=== PATIENT | female | born 1985 | race Caucasian/White ===

== ENCOUNTER 2024-05-07 16:59 | Inpatient (IN) | payer OTHER, SELFPAY ==
[2024-05-07 17:05] VITALS: BP 102/70; PULSE 110; RESP 16; TEMP 36.9; O2SAT 97
[2024-05-07 17:39] VITALS: BMI 27.8
--- OUTSIDE RECORDS SUMMARY | 2024-05-07 18:13 | XMS_ITS | Clinical Summary ---
Author Organization [facility] Address [address] [place] [address] Phone Care Team Providers Care Clinical Pharmacy Technician Name Role Phone Mary Jane Hernandez MD Primary Care Provider Allergies Active Allergy Reactions Criticality Noted Date Comments Azithromycin Anaphylaxis High 02/26/2024 Citalopram Hives 02/26/2024 Codeine Anaphylaxis High 02/26/2024 Divalproex Hives 02/26/2024 Venlafaxine Hives 02/26/2024 Metronidazole Rash 02/26/2024 Ziprasidone Hcl Anaphylaxis High 02/26/2024 Haloperidol Anaphylaxis High 02/26/2024 Latex Hives 02/26/2024 Risperidone Hives 02/26/2024 Sertraline Rash 02/26/2024 Medications docusate sodium (COLACE) 100 mg capsule Take 1 capsule (100 mg total) by mouth every 12 (twelve) hours. 60 capsule 5 05/23/19 25 Active cephalexin (KEFLEX) 500 mg capsule Take 1 capsule (500 mg total) by mouth 4 (four) times a day for 10 days. 40 each 5 05/14/19 25 Active lactulose (CEPHULAC) 20 gram packet Take 1 packet (20 g total) by mouth 2 (two) times a day for 5 days. 10 packet 5 04/23/19 25 Discontinued docusate sodium (COLACE) 100 mg capsule Take 1 capsule (100 mg total) by mouth every 12 (twelve) hours. 60 capsule 5 04/23/19 25 Discontinued lactulose (CEPHULAC) 20 gram packet Take 1 packet (20 g total) by mouth 2 (two) times a day for 5 days. 10 packet 5 04/28/19 25 cephalexin (KEFLEX) 500 mg capsule Take 1 capsule (500 mg total) by mouth 4 (four) times a day for 10 days. 40 each 5 05/04/19 25 Discontinued Active Problems No known active problems Encounters Date Type Department Care Team Description 05/03/2024 6:45 PM EDT - 05/03/2024 11:10 PM EDT [facility] [address] [place] [phone] Héctor Thomas MD Stroke-like symptoms (Primary Dx); Weakness of left side of body Discharge Disposition: Home or Self Care 05/03/2024 12:49 AM EDT - 05/03/2024 6:27 AM EDT [facility] [address] [place] [phone] Cellulitis of buttock (Primary Dx) Discharge Disposition: Home or Self Care 04/30/2024 10:04 PM EDT - 05/01/2024 12:14 AM EDT [facility] [address] [place] [phone] Acute pain of left knee (Primary Dx) Discharge Disposition: Home or Self Care 04/22/2024 6:37 PM EDT - 04/22/2024 11:53 PM EDT [facility] [address] [place] [phone] Constipation, unspecified constipation type (Primary Dx) Discharge Disposition: Home or Self Care 04/20/2024 10:33 PM EDT - 04/21/2024 12:11 AM EDT [facility] [address] [place] [phone] Nonintractable headache, unspecified chronicity pattern, unspecified headache type (Primary Dx) Discharge Disposition: Home or Self Care 02/26/2024 10:31 AM EST - 02/26/2024 2:27 PM EST [facility] [address] [place] [address] Pilonidal abscess (Primary Dx) Discharge Disposition: Home or Self Care from Last 3 Months Surgical History Surgery Date Site/Laterality Comments SECTION Medical History Medical History Date Comments Asthma Sleep apnea Seizures (CMS/HCC) IBS (irritable bowel syndrome) GERD (gastroesophageal reflux disease) Anxiety Depression Bipolar 1 disorder (CMS/HCC) Insomnia Autism Acute migraine Hyperlipidemia Hypotension Social History Tobacco Use Types Packs/Day Years Used Date Smoking Tobacco: Every Day Cigarettes Smokeless Tobacco: Current Tobacco Cessation:Ready to Q uit: No; Counseling Given: Not Answered Alcohol Use Standard Drinks/Week Comments Never 0 (1 standard drink = 0.6 oz pur e alcohol) Comments Unknown Sex and Gender Information Value Date Recorded Sex Assigned at Female 02/26/2024 10:48 AM EST Legal Sex Female 6:51 PM EST Gender Identity Female 02/26/2024 10:48 AM EST Sexual Orientation Straight 02/26/2024 10 :48 AM EST Obstetrics History Last Filed Vital Signs Vital Sign Reading Time Taken Comments Blood Pressure 92/63 05/03/2024 10:56 PM EDT Pulse 74 05/03/2024 10:56 PM EDT Temperature 36.6 ??C (97.8 ??F) 05/03/2024 9:35 PM ED T Respiratory Rate 17 05/03/2024 10:56 PM EDT Oxygen Saturation 98% 05/03/2024 10:56 PM EDT Inhaled Oxygen Concentration - - Weight 67.1 kg (148 lb) 05/03/2024 7:49 PM EDT Height 154.9 cm (5' 0.98 ) 05/03/2024 7:49 PM ED T Body Mass Index 27.98 05/03/2024 7:49 PM EDT Plan of Treatment Health Maintenance Due Date Last Done Comments Breast Cancer Screening 1984 Cervical Cancer Screening: Pap Smear 2005 Hepatitis B Vaccines (2 of 3 - 19+ 3-dose series) 12/22/2009 11/24/2009 Pneumococcal Vaccine: Pediatrics (0 to 5 Years) and At-Risk Patients (6 to 64 Years) (2 of 2 - PCV) 07/02/2011 07/01/2010 Cholesterol Screening (Lipid Panel) 01/09/2022 Depression Screening 01/09/2022 HIV Screening 01/09/2022 Hepatitis C Screening 01/09/2022 Medicare Annual Wellness Visit 01/09/2022 Social Influencers of Health Screening 01/09/2022 COVID-19 Vaccine (3 - season) 2023 07/08/2020, 06/06/2020 Influenza Vaccine (#1) 2023 , 11/08/2013, 11/01/2012, Additional history exists DTaP,Tdap,and Td Vaccines (5 - Td or Tdap) 07/23/2030 07/23/2020, 11/20/2012, 06/14/2008, Additional history exists Hepatitis A Vaccines Aged Out 11/24/2009 No long er eligible based on patient's age to complete this topic MMR Vaccines Aged Out 07/24/2020 No longer eligi ble based on patient's age to complete this topic HIB Vaccines Aged Out No longer eligi ble based on patient's age to complete this topic HPV Vaccines Aged Out No longer eligi ble based on patient's age to complete this topic IPV Vaccines Aged Out No longer eligi ble based on patient's age to complete this topic Meningococcal ACWY Vaccine Aged Out N o longer eligible based on patient's age to complete this topic Meningococcal B Vacine Aged Out No lo nger eligible based on patient's age to complete this topic RSV Immunization Patients Under 20 months Aged Out No longer eligible based on patient's age to complete this topic Varicella Vaccines Aged Out No longer eligible based on patient's age to complete this topic Procedures Procedure Name Priority Date/Time Associated Diagnosis Comments ECG ANNOTATED 05/06/2024 XR CHEST 1 VIEW STAT 05/03/2024 10:32 PM EDT BASIC METABOLIC PANEL STAT 05/03/2024 9:37 PM EDT MR BRAIN WO CONTRAST STAT 05/03/2024 8:40 PM EDT POCT GLUCOSE BLOOD Routine 05/03/2024 7: 50 PM EDT HCG, SERUM, QUALITATIVE STAT 05/04/19 7:42 PM EDT CBC WITH AUTO DIFFERENTIAL STAT 05/03/2024 7:42 PM EDT ACTIVATED PARTIAL THROMBOPLASTIN TIME STAT 05/03/2024 7:42 PM EDT PROTHROMBIN TIME WITH INR STAT 05/03/2024 7:42 PM EDT CBC AND DIFFERENTIAL STAT 05/03/2024 7:[address] ANGIO HEAD/NECK STROKE WO AND/OR W CONTRAST STAT 05/03/2024 7:[address] HEAD STROKE WO CONTRAST STAT 05/03/2024 6:57 PM EDT [place] CRITICAL CARE 30-74 MINUTES Routine 05/03/2024 6:[address] PELVIS W CONTRAST STAT 05/03/2024 4:07 AM EDT CBC WITH AUTO DIFFERENTIAL STAT 05/03/2024 2:30 AM EDT BASIC METABOLIC PANEL STAT 05/03/2024 2:30 AM EDT CBC AND DIFFERENTIAL STAT 05/03/2024 2:30 AM EDT POC , URINE DIAGNOSTIC STAT 05/03/2024 2:[address] ABDOMEN PELVIS WO CONTRAST STAT 04/22/2024 7:59 PM EDT CBC WITH AUTO DIFFERENTIAL STAT 04/22/2024 7:39 PM EDT LIPASE STAT 04/22/2024 7:39 PM EDT COMPREHENSIVE METABOLIC PANEL STAT 04/22/2024 7:39 PM EDT CBC AND DIFFERENTIAL STAT 04/22/2024 7:39 PM EDT POC , URINE DIAGNOSTIC STAT 04/22/2024 6:44 PM EDT HC I&D/DRAIN HEMATOMA/ABSCESS/CYST LEVEL1 Routine 02/26/2024 2:13 PM EST AK INCISION & DRAINAGE CYST PILONIDAL SIMPLE Routine 02/26/2024 2:13 PM EST from Last 3 Months Results * ECG-Annotated (05/06/2024) us Provider Onbase MD ECG ORDERABLES Final Result * XR Chest 1 View (05/03/2024 10:32 PM EDT) Anatomical Region Laterality Modality Body Radiographic Whit ging 05/04/2024 8:25 AM EDT Impressions 05/04/2024 8:26 AM EDT Impression: Discoid atelectasis in the left lower lung. Telerad MICHAEL ([id number]) -------- FINAL REPORT -------- Dictated By: Dorcas Santiago Dictated Date: 05/04/2024 08:25 ET Assigned Physician: Dorcas Santiago Reviewed and Electronically Signed By: Dorcas Santiago Signed Date: 05/04/2024 08:26 ET Workstation ID: [id number] Transcribed By: Self Edit Transcribed Date: 05/04/2024 08:25 ET Narrative 05/04/2024 8:26 AM EDT History: Stroke. Comparison: 07/20/22 Findings: Portable AP upright chest at 10:25 PM. The cardiac silhouette remains normal in size. Hilar contours and pulmonary vascularity are within normal limits. Discoid atelectasis is seen in the left lower lung. The lungs are otherwise grossly clear. Opaque contrast material is seen within the upper urinary tract, partially imaged, consistent with the earlier CTA. Procedure Note Dorcas Santiago MD - 05/04/2024 History: Stroke. Comparison: 07/20/22 Findings: Portable AP upright chest at 10:25 PM. The cardiac silhouette remainsnormal in size. Hilar contours and pulmonary vascularity are within normallimits. Discoid atelectasis is seen in the left lower lung. The lungs areotherwise grossly clear. Opaque contrast material is seen within the upper urinary tract, partiallyimaged, consistent with the earlier CTA. IMPRESSION: Impression: Discoid atelectasis in the left lower lung. Telerad PA ([id number]) -------- FINAL REPORT -------- Dictated By: Dorcas Santiago Dictated Date: 05/04/2024 08:25 ET Assigned Physician: Dorcas Santiago Reviewed and Electronically Signed By: Dorcas Santiago Signed Date: 05/04/2024 08:26 ET Workstation ID: [id number] Transcribed By: Self Edit Transcribed Date: 05/04/2024 08:25 ET Kirk Jenkins MD IMG XR PROCEDURES Final Result * (ABNORMAL) Basic metabolic panel (05/03/2024 9:37 PM EDT) Only the most recent of2 resultswithin the time period is included. Sodium 142 133 - 145 mmol/L LAB CHEMISTRY METHOD 05/03/2024 10:15 PM [facility] Potassium 4.3 3.5 - 5.5 mmol/L LAB CHEMISTRY METHOD 05/03/2024 10:15 PM [facility] Comment:Hemolysis present Chloride 114(H) 96 - 110 mmol/L LAB CHEMISTRY METHOD 05/03/2024 10:15 PM [facility] CO2 20(L) 21 - 32 mmol/L LAB CHEMISTRY METHOD 05/03/2024 10:15 PM [facility] Anion Gap 8 3 - 11 LAB CHEMISTRY METHOD 05/03/2024 10:15 PM [facility] Glucose 95 70 - 100 mg/dL LAB CHEMISTRY METHOD 05/03/2024 10:15 PM [facility] BUN 9 5 - 25 mg/dL LAB CHEMISTRY METHOD 05/03/2024 10:15 PM EDT [facility] Creatinine 0.63 0.50 - 1.10 mg/dL LAB CHEMISTRY METHOD 05/03/2024 10:15 PM EDT [facility] eGFR 115 >=60 mL/min/1. 73m2 LAB CHEMISTRY METHOD 05/03/2024 10:15 PM EDT [facility] Comment:Calculation based on the??Chronic Kidney Disease Epidemiology Collaboration (CKD-EPI) equation refit??without adjustment for race. BUN/Creatinine Ratio 14.3 LAB CHEMISTRY METHOD 05/03/2024 10:15 PM EDT [facility] Calcium 8.6 8.5 - 10.5 mg/dL LAB CHEMISTRY METHOD 05/03/2024 10:15 PM EDT [facility] Blood Venous blood specimen / Unknown Venipuncture / Unknown 05/03/2024 9:37 PM EDT 05/03/2024 9:49 PM EDT us Kirk Jenkins MD LAB BLOOD ORDERABLES Final Resu lt [facility] [address] [place] [address], * MR Brain wo Contrast (05/03/2024 8:40 PM EDT) Anatomical Region Laterality Modality Head and Neck Magnetic Resonan ce 05/03/2024 9:33 PM EDT Impressions 05/03/2024 9:33 PM EDT Unremarkable brain MRI. This document has been electronically signed by: Stanford Kaufman MD on 05/03/2024 21:33:13 Narrative 05/03/2024 9:33 PM EDT INDICATION: Neuro deficit, acute, stroke suspected MR Brain without gadolinium Comparison: CT - CT ANGIO HEAD NECK STROKE WO AND OR W CONTRAST - 05/03/24 19:00 EDT Findings: No restricted diffusion. No intracranial mass or hemorrhage. No midline shift. No hydrocephalus. Vascular flow voids are intact. Orbital contents are unremarkable. The sinuses and mastoid air cells are clear. No focal bone lesion. Procedure Note Stanford Kaufman MD - 05/03/2024 INDICATION: Neuro deficit, acute, stroke suspected MR Brain without gadolinium Comparison: CT - CT ANGIO HEAD NECK STROKE WO AND OR W CONTRAST -05/03/24 19:00 EDT Findings: No restricted diffusion. No intracranial mass or hemorrhage. No midline shift. No hydrocephalus. Vascular flow voids are intact. Orbital contents are unremarkable. The sinuses and mastoid air cells are clear. No focal bone lesion. IMPRESSION: Unremarkable brain MRI. This document has been electronically signed by: Stanford Kaufman MD on 05/03/2024 21:33:13 Héctor Thomas MD IMG MRI PROCEDURES Final Re sult * POCT Glucose, blood (05/03/2024 7:50 PM EDT) Glucose POCT 99 70 - 100 mg/dL 05/03/2024 7:51 PM EDT [facility] Blood Capillary blood specimen / Unknown 05/03/2024 7:50 PM EDT 05/03/2024 7:52 PM EDT Héctor Thomas MD LAB POINT OF CARE T EST DOCKED DEVICE UNSOLICITED RESULTS Final Result [facility] [address] [place] [address], [place] [phone] * (ABNORMAL) CBC auto differential (05/03/2024 7:42 PM EDT) Only the most recent of3 resultswithin the time period is included. WBC 9.4 4.8 - 10.8 K/[facility] LAB HEMETOLOGY METHOD 05/03/2024 7:56 PM EDT [facility] RBC 3.80 3.80 - 4.80 M/[facility] LAB HEMETOLOGY METHOD 05/03/2024 7:56 PM EDT [facility] Hemoglobin 12.3 11.5 - 16.0 g/dL LAB HEMETOLOGY METHOD 05/03/2024 7:56 PM EDT [facility] Hematocrit 38.0 35.0 - 47.0 % LAB HEMETOLOGY METHOD 05/03/2024 7:56 PM [facility] MCV 100.3(H) 79.0 - 98.0 FL LAB HEMETOLOGY METHOD 05[facility]03[facility]2024 7:[facility] MCH 32.5(H) 27.0 - 32.0 pcg LAB HEMETOLOGY METHOD 05/03/2024 7:56 PM [facility] MCHC 32.4 32.0 - 37.0 g/dL LAB HEMETOLOGY METHOD 05/03/2024 7:56 PM [facility] RDW 13.3 11.0 - 15.0 % LAB HEMETOLOGY METHOD 05/03/2024 7:56 PM [facility] Platelets 210 130 - 400 K/mcL LAB HEMETOLOGY METHOD 05/03/2024 7:56 PM [facility] MPV 11.4(H) 7.0 - 11.0 FL LAB HEMETOLOGY METHOD 05/03/2024 7:56 PM [facility] NRBC 0.0 <1.0 % LAB HEMETOLOGY METHOD 05/03/2024 7:56 PM [facility] NRBC Absolute 0.00 <0.10 K/mcL LAB HEMETOLOGY METHOD 05/03/2024 7:56 PM [facility] Neutrophils Relative 52.1 % LAB HEMETOLOGY METHOD 05/03/2024 7:56 PM [facility] Lymphocytes Relative 34.6 % LAB HEMETOLOGY METHOD 05/03/2024 7:56 PM [facility] Monocytes Relative 11.3 % LAB HEMETOLOGY METHOD 05/03/2024 7:56 PM EDT [facility] Eosinophils Relative 1.5 % LAB HEMETOLOGY METHOD 05/03/2024 7:56 PM EDT [facility] Basophils Relative 0.3 % LAB HEMETOLOGY METHOD 05/03/2024 7:56 PM EDT [facility] Immature Granulocytes Relative 0.2 % LAB HEMETOLOGY METHOD 05/03/2024 7:56 PM EDT [facility] Neutrophils Absolute 4.91 1.50 - 7.00 K/mcL LAB HEMETOLOGY METHOD 05/03/2024 7:56 PM EDT [facility] Lymphocytes Absolute 3.27 1.00 - 5.00 K/mcL LAB HEMETOLOGY METHOD 05/03/2024 7:56 PM EDT [facility] Monocytes Absolute 1.07(H) 0.20 - 1.00 K/mcL LAB HEMETOLOGY METHOD 05/03/2024 7:56 PM EDT [facility] Eosinophils Absolute 0.14 0.00 - 0.50 K/mcL LAB HEMETOLOGY METHOD 05/03/2024 7:56 PM EDT [facility] Basophils Absolute 0.03 0.00 - 0.20 K/mcL LAB HEMETOLOGY METHOD 05/03/2024 7:56 PM EDT [facility] Immature Granulocytes Absolute 0.02 0.00 - 0.03 K/mcL LAB HEMETOLOGY METHOD 05/03/2024 7:56 PM EDT [facility] Blood Venous blood specimen / Unknown Venipuncture / Unknown 05/03/2024 7:42 PM EDT 05/03/2024 7:48 PM EDT us Kirk Jenkins MD LAB BLOOD ORDERABLES Final Resu lt [facility] [address] [place] [address], [place] [phone] * Activated partial thromboplastin time (05/03/2024 7:42 PM EDT) [facility] aPTT 36.3 24.1 - 39.3 sec LAB COAGULATION METHOD 05/03/2024 8:05 PM EDT [facility] Blood Venous blood specimen / Unknown Venipuncture / Unknown 05/03/2024 7:42 PM EDT 05/03/2024 7:48 PM EDT us Kirk Jenkins MD LAB BLOOD ORDERABLES Final Resu lt Performing Organization Address [facility]/State/ZIP Co de Phone Number [facility] [address] [place] [address], [place] [phone] * Prothrombin time with INR (05/03/2024 7:42 PM EDT) [facility] Protime 11.4 10.6 - 13.9 sec LAB COAGULATION METHOD 05/03/2024 8:05 PM EDT [facility] INR 0.9 LAB COAGULATION METHOD 05/03/2024 8:05 PM EDT [facility] Blood Venous blood specimen / Unknown Venipuncture / Unknown 05/03/2024 7:42 PM EDT 05/03/2024 7:48 PM EDT us Kirk Jenkins MD LAB BLOOD ORDERABLES Final Resu lt [facility] [address] [place] [address], [place] [phone] * hCG, serum, qualitative (05/03/2024 7:42 PM EDT) [facility] hCG Qual Negative Negative 05/03/2024 8:21 PM EDT [facility] Blood Venous blood specimen / Unknown Venipuncture / Unknown 05/03/2024 7:42 PM EDT 05/03/2024 7:48 PM EDT us Héctor Thomas MD LAB BLOOD ORDERABLES Final Result [facility] [address] [place] [address], * CT Angio Head/Neck Stroke wo and/or w Contrast (05/03/2024 7:04 PM EDT) Anatomical Region Laterality Modality Head and Neck Computed Tomogra phy 05/03/2024 7:31 PM EDT Impressions 05/03/2024 7:31 PM EDT Impression: 1. Unremarkable CTA of the head and neck. This document has been electronically signed by: Isaías Cuenca MD on 05/03/2024 19:31:08 Narrative 05/03/2024 7:31 PM EDT INDICATION: Neuro deficit, acute, stroke suspected Exam: Contrast-enhanced CTA head and neck with multiplanar reformats. Comparison: Same day unenhanced CT brain. Findings: CTA head: There is good opacification of the bilateral anterior and posterior intracranial arterial circulations. No large vessel occlusion or significant intracranial arterial stenoses. No definable truncation of flow. No evidence of aneurysm or vascular malformation. No venous thrombosis or enhancing parenchymal lesions. CTA neck: Unremarkable aortic arch. Common and internal carotid arteries are patent bilaterally. Vertebral arteries are patent bilaterally. No occlusion, hemodynamically significant stenoses or evidence of dissection. Visualized pulmonary apices are clear. No neck masses or adenopathy Osseous structures reveal no destructive osseous lesions. Procedure Note Isaías Cuenca MD - 05/03/2024 INDICATION: Neuro deficit, acute, stroke suspected Exam: Contrast-enhanced CTA head and neck with multiplanar reformats. Comparison: Same day unenhanced CT brain. Findings: CTA head: There is good opacification of the bilateral anterior and posterior intracranial arterial circulations. No large vessel occlusionor significant intracranial arterial stenoses. No definable truncation of flow. No evidence of aneurysm or vascular malformation. No venous thrombosis or enhancing parenchymal lesions. CTA neck: Unremarkable aortic arch. Common and internal carotid arteries are patent bilaterally. Vertebral arteries are patent bilaterally. No occlusion, hemodynamically significant stenoses or evidence ofdissection. Visualized pulmonary apices are clear. No neck masses or adenopathy Osseous structures reveal no destructive osseous lesions. IMPRESSION: Impression: 1. Unremarkable CTA of the head and neck. This document has been electronically signed by: Isaías Cuenca MD on 05/03/2024 19:31:08 Kirk Jenkins MD IM CT PROCEDURES Final Result * CT Head Stroke wo Contrast (05/03/2024 6:57 PM EDT) Anatomical Region Laterality Modality Head and Neck Computed Tomogra phy 05/03/2024 7:09 PM EDT Addenda Addendum by Isaías Cuenca MD on 05/03/2024 7:13 PM EDT ADDENDUM: This report was discussed with Sergio Hernandez PA on May 03, 2024 19:13:00 EDT. This document has been electronically signed by: Lizet Carcamo on 05/03/2024 19:13:35 Impressions 05/03/2024 7:09 PM EDT Impression: 1. No acute intracranial abnormalities. This document has been electronically signed by: Isaías Cuenca MD on 05/03/2024 19:09:43 Narrative 05/03/2024 7:09 PM EDT INDICATION: Neuro deficit, acute, stroke suspected CT head without contrast Comparison: None Findings: No intracranial mass, midline shift, hydrocephalus, or acute hemorrhage. No CT evidence of acute ischemia. Visualized paranasal sinuses and mastoid air cells normal. Orbits unremarkable. No skull fracture Procedure Note Isaías Cuenca MD - 05/03/2024 INDICATION: Neuro deficit, acute, stroke suspected CT head without contrast Comparison: None Findings: No intracranial mass, midline shift, hydrocephalus, or acute hemorrhage. No CT evidence of acute ischemia. Visualized paranasal sinuses and mastoid air cells normal. Orbits unremarkable. No skull fracture IMPRESSION: Impression: 1. No acute intracranial abnormalities. This document has been electronically signed by: Isaías Cuenca MD on 05/03/2024 19:09:43 us Kirk Jenkins MD IMG CT PROCEDURES Edited Result - Final * [facility] CRITICAL CARE 30-74 MINUTES (05/03/2024 6:44 PM EDT) Narrative Héctor Thomas MD - 05/03/2024 6:44 PM EDT Héctor Thomas MD ? 05/07/2024 ??8:16 AM Critical Care Performed by: Héctor Thomas MD Authorized by: Héctor Thomas MD ?? 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 Comments: ?? Patient required extensive time due to stroke alert patient being in. ?? tPA window a bedside consult was done with teleneurology and using shared decision-making we decided against tPA due to the improving neurologic symptoms and low NIHSS, and likelihood that this may be psychogenic or migranous in nature. us Héctor Thomas MD IN CLINIC/BEDSIDE ORDERABLE S Final Result * CT Pelvis w Contrast (05/03/2024 4:07 AM EDT) Anatomical Region Laterality Modality Body, Pelvis Computed Tomogra phy 05/03/2024 4:38 AM EDT Impressions 05/03/2024 4:38 AM EDT Impression: 1. Increased subcutaneous fat induration at the right gluteal cleft. This is likely cellulitis, however there is no definable abscess. This document has been electronically signed by: Reji Dexter MD on 05/03/2024 04:38:58 Narrative 05/03/2024 4:38 AM EDT INDICATION: R buttock abscess superior R glut cleft, perirectal pain CT pelvis with contrast Comparison: CT - CT ABD PEL WO CONTRAST - 04/22/24 20:00 EDT Findings: At the right gluteal cleft there is increased subcutaneous fat induration compared to the prior exam, however there is no definable fluid collection. Uterus and ovaries unremarkable. Normal appendix. No ascites or hernia. No fracture. Procedure Note Reji Dexter MD - 05/03/2024 INDICATION: R buttock abscess superior R glut cleft, perirectal pain CT pelvis with contrast Comparison: CT - CT ABD PEL WO CONTRAST - 04/22/24 20:00 EDT Findings: At the right gluteal cleft there is increased subcutaneous fatinduration compared to the prior exam, however there is no definable fluid collection. Uterus and ovaries unremarkable. Normal appendix. No ascites or hernia. No fracture. IMPRESSION: Impression: 1. Increased subcutaneous fat induration at the right gluteal cleft.This is likely cellulitis, however there is no definable abscess. This document has been electronically signed by: Reji Wren MD on 05/03/2024 04:38:[address] PROCEDURES Final Result * POC , urine manually resulted (05/03/2024 2:13 AM EDT) Only the most recent of2 resultswithin the time period is included. HCG, Ur POC Negative Negative POC hCG Int QC Pass? Yes Yes Urine Urine specimen obtained by clean catch procedure / Unknown 05/03/2024 2:13 AM EDT [facility] POINT [facility] CARE TEST ENTER/EDIT ORDERABLES Final Result * CT Abdomen Pelvis wo Contrast (04/22/2024 7:59 PM EDT) Anatomical Region Laterality Modality Body Computed Tomogra phy 04/22/2024 9:31 PM EDT Impressions 04/22/2024 9:31 PM EDT Impression: Diffuse fecal retention throughout the colon. No bowel obstruction, free air or definite acute process. This document has been electronically signed by: Alton Guerrero MD on 04/22/2024 21:31:37 Narrative 04/22/2024 9:31 PM EDT INDICATION: Abdominal distension CT abdomen and pelvis without contrast Comparison: None Findings: No consolidation or effusion. The liver, spleen, splenule, adrenal glands, pancreas and gallbladder are unremarkable Kidneys, ureters and bladder demonstrate no calculus or obstructive uropathy. No bowel obstruction, free air, free fluid, abscess or adenopathy. There is diffuse fecal retention throughout the colon. No acute osseous finding. Procedure Note Alton Guerrero MD - 04/22/2024 INDICATION: Abdominal distension CT abdomen and pelvis without contrast Comparison: None Findings: No consolidation or effusion. The liver, spleen, splenule, adrenal glands, pancreas and gallbladderare unremarkable Kidneys, ureters and bladder demonstrate no calculus or obstructive uropathy. No bowel obstruction, free air, free fluid, abscess or adenopathy. There is diffuse fecal retention throughout the colon. No acute osseous finding. IMPRESSION: Impression: Diffuse fecal retention throughout the colon. No bowel obstruction, free air or definite acute process. This document has been electronically signed by: Alton Guerrero MD on 04/22/2024 21:31:37 [address]za [address] IM[address] PROCEDURES Layla l Result * Lipase (04/22/2024 7:39 PM EDT) Lipase 55 13 - 75 unit/L LAB CHEMISTRY METHOD 04/22/2024 9:18 PM EDT [facility] Blood Venous blood specimen / Unknown Venipuncture / Unknown 04/22/2024 7:39 PM EDT 04/22/2024 8:39 PM EDT us Lamonte Martin DO LAB BLOOD ORDERABLES Final Res ult [facility] [address] [place] [address], [place] [phone] * (ABNORMAL) Comprehensive metabolic panel (04/22/2024 7:39 PM EDT) Sodium 142 133 - 145 mmol/L LAB CHEMISTRY METHOD 04/22/2024 9:40 PM [facility] Potassium 3.9 3.5 - 5.5 mmol/L LAB CHEMISTRY METHOD 04/22/2024 9:40 PM [facility] Chloride 115(H) 96 - 110 mmol/L LAB CHEMISTRY METHOD 04/22/2024 9:40 PM [facility] CO2 21 21 - 32 mmol/L LAB CHEMISTRY METHOD 04/22/2024 9:40 PM [facility] Anion Gap 6 3 - 11 LAB CHEMISTRY METHOD 04/22/2024 9:40 PM [facility] Glucose 95 70 - 100 mg/dL LAB CHEMISTRY METHOD 04/22/2024 9:40 PM [facility] BUN 15 5 - 25 mg/dL LAB CHEMISTRY METHOD 04/22/2024 9:40 PM [facility] Creatinine 0.89 0.50 - 1.10 mg/dL LAB CHEMISTRY METHOD 04/22/2024 9:40 PM [facility] eGFR 84 >=60 mL/min/1. 73m2 LAB CHEMISTRY METHOD 04/22/2024 9:40 PM [facility] Comment:Calculation based on the??Chronic Kidney Disease Epidemiology Collaboration (CKD-EPI) equation refit??without adjustment for race. BUN/Creatinine Ratio 16.9 LAB CHEMISTRY METHOD 04/22/2024 9:40 PM [facility] Calcium 8.6 8.5 - 10.5 mg/dL LAB CHEMISTRY METHOD 04/22/2024 9:40 PM [facility] AST (SGOT) 18 10 - 42 unit/L LAB CHEMISTRY METHOD 04/22/2024 9:40 PM [facility] ALT (SGPT) 41 10 - 60 unit/L LAB CHEMISTRY METHOD 04/22/2024 9:40 PM EDT [facility] Alkaline Phosphatase 92 42 - 121 unit/L LAB CHEMISTRY METHOD 04/22/2024 9:40 PM EDT [facility] Total Protein 6.9 6.0 - 8.0 g/dL LAB CHEMISTRY METHOD 04/22/2024 9:40 PM EDT [facility] Albumin 3.7 3.2 - 5.0 g/dL LAB CHEMISTRY METHOD 04/22/2024 9:40 PM EDT [facility] Total Bilirubin 0.2 0.0 - 1.4 mg/dL LAB CHEMISTRY METHOD 04/22/2024 9:40 PM EDT [facility] Blood Venous blood specimen / Unknown Venipuncture / Unknown 04/22/2024 7:39 PM EDT 04/22/2024 8:39 PM EDT us Lamonte Martin DO LAB BLOOD ORDERABLES Final Res ult [facility] [address] [place] [address], * [place] INCISION & DRAINAGE CYST PILONIDAL SIMPLE, HC I&D/DRAIN HEMATOMA/ABSCESS/CYST LEVEL1 (02/26/2024 2:13 PM EST) Narrative Trinidad Celeste DO - 02/26/2024 2:13 PM EST MICHAEL Jones ? 02/26/2024 ??2:18 PM Incision and Drainage Date/Time: 02/26/2024 2:13 PM Performed by: MICHAEL Jones Authorized by: MICHAEL Jones ?? Consent: ??Consent obtained: ??Verbal ??Consent given by: ??Patient ??Risks, benefits, and alternatives were discussed: yes ?Risks discussed: ??Incomplete drainage [place] protocol: ??Procedure explained and questions answered to patient or proxy's satisfaction: yes ?Patient identity confirmed: ??Verbally with patient and hospital-assigned identification number Location: ??Type: ??Abscess ??Location: ??Anogenital ??Anogenital location: ??Pilonidal Pre-procedure details: ??Skin preparation: ??Povidone-iodine Anesthesia: ??Anesthesia method: ??Local infiltration Procedure type: ??Complexity: ??Simple Procedure details: ??Ultrasound guidance: no ?Needle aspiration: no ?Incision types: ??Single straight ??Incision depth: ??Subcutaneous ??Wound management: ??Irrigated with saline ??Drainage: ??Purulent ??Drainage amount: ??Moderate ??Wound treatment: ??Drain placed ??Packing materials: ??02/10 in iodoform gauze Post-procedure details: ??Procedure completion: ??Tolerated us Claritza RODRIGUEZ IN CLINIC/BEDSIDE KEANU HIGGINS Final Result from Last 3 Months Insurance [employer] Member Subscriber Plan / Payer (Ef fective 2022-Present) Name:Mayco Sloan Relation to Subscriber:Self Name:Mayco Sloan Payer ID:[id number] Group ID:[id number] Type:Not on file Address: [place] [address] [place] [phone] Care Teams Clinical Pharmacy Technician Relationship Specialty Start Date End Date Mary Jane Hernandez MD [address] [place] [phone] PCP - General 10/27/21
--- OUTSIDE RECORDS SUMMARY | 2024-05-07 18:13 | XMS_ITS | Encounter Summary ---
Author Organization [facility] Address [address] [facility] [address] [place] [address] Phone Care Team Providers Care Special Officer Name Role Phone Mary Jane Hernandez MD Primary Care Provider [phone] Encounter Details Date Type Department Care Team (Late Contact Info) Description 12/05/2020 Telephone [facility] [address] [facility] [address] [place] [phone] Eleonora Rincon Social History Tobacco Use Types Packs/Day Years Used Date Smoking Tobacco: Every Day Cigarettes Smokeless Tobacco: Current Alcohol Use Standard Drinks/Week Comments No 0 (1 standard drink = 0.6 oz pur e alcohol) Comments Unknown Sex and Gender Information Value Date Recorded Sex Assigned at Not on file Legal Sex Female 4:53 PM EST Gender Identity Not on file Sexual Orientation Not on file documented as of this encounter Plan of Treatment Upcoming Encounters Date Type Department Care Team (Late st Contact Info) Description 01/14/2025 1:00 PM EST Office Visit [facility] [address] [phone] Jose Luis Savage MD [address] [phone] documented as of this encounter Visit Diagnoses Not on filedocumented in this encounter Care Teams Special Officer Relationship Specialty Start Date End Date Mary Jane Hernandez MD [address] [place] [phone] PCP - General Internal Medicine 04/30/21 documented as of this encounter
--- OUTSIDE RECORDS SUMMARY | 2024-05-07 18:14 | XMS_ITS | Encounter Summary ---
Author Organization [facility] [place] [address] Care Team Providers Care Research Engineer Name Role Phone Mary Jane Hernandez MD Primary Care Provider [phone] Reason for Visit * Reason Comments Abscess Abscess on right but tock she noticed just today. Encounter Details Date Type Department Care Team (Late st Contact Info) Description 05/03/2024 12:49 AM EDT - 05/03/2024 6:27 AM EDT Emergency [facility] Emergency [address] [place] [id number] Cellulitis of buttock (Primary Dx) Discharge Disposition: Home or Self Care Social History Tobacco Use Types Packs/Day Years Used Date Smoking Tobacco: Every Day Cigarettes Smokeless Tobacco: Current Alcohol Use Standard Drinks/Week Comments Never 0 (1 standard drink = 0.6 oz pur e alcohol) Comments Unknown Sex and Gender Information Value Date Recorded Sex Assigned at Female 02/26/2024 10:48 AM EST Legal Sex Female 6:51 PM EST Gender Identity Female 02/26/2024 10:48 AM EST Sexual Orientation Straight 02/26/2024 10 :48 AM EST documented as of this encounter Last Filed Vital Signs Vital Sign Reading Time Taken Comments Blood Pressure 91/65 05/03/2024 4:24 AM EDT Pulse 102 05/03/2024 4:24 AM EDT Temperature 36.8 ??C (98.2 ??F) 05/03/2024 4:24 AM ED T Respiratory Rate 16 05/03/2024 4:24 AM EDT Oxygen Saturation 99% 05/03/2024 4:24 AM EDT Inhaled Oxygen Concentration - - Weight 67.1 kg (148 lb) 05/02/2024 9:16 PM EDT Height 154.9 cm (5' 1 ) 05/02/2024 9:16 PM EDT Body Mass Index 27.96 05/02/2024 9:16 PM EDT documented in this encounter Functional Status * Are you deaf or do you have serious difficulty hearing? Answer Date of Assessment Author No 04/20/2024 11:45 PM EDT Aneta Adler RN * Are you blind or do you have serious difficulty seeing, even when wearing glasses? Answer Date of Assessment Author No 04/20/2024 11:45 PM EDT Aneta Adler RN * Do you have serious difficulty walking or climbing stairs? Answer Date of Assessment Author No 04/20/2024 11:45 PM EDT Aneta Adler RN * Do you have serious difficulty dressing or bathing? Answer Date of Assessment Author No 04/20/2024 11:45 PM EDT Aneta Adler RN * Because of a physical, mental, or emotional condition, do you have serious difficulty doing errandsalone such as visiting the doctor? Answer Date of Assessment Author No 04/20/2024 11:45 PM EDT Aneta Adler RN documented as of this encounter Mental Status * Because of a physical, mental, or emotional condition, do you have serious difficulty concentrating, remembering, or making decisions? (5 years old or older) Answer Entry Date Author No 04/20/2024 11:45 PM EDT Aneta Adler RN documented in this encounter Discharge Instructions * Discharge Instructions* MICHAEL Duarte - 05/03/2024 5:33 AM EDT Thank you for choosing [facility]'s Emergency Department for your care today. At this time there is no indication for admission to the hospital or continued ED observation, and it is safe to discharge you home. Thankfully your CT today showed no evidence of a formed abscess, there is evidence of cellulitis inthe skin of your buttock, we are treating this with cephalexin, an antibiotic. Please take cephalexin as it was prescribed until it is finished. You may take alternating (staggered) doses of ibuprofen 600mg and Tylenol 1000mg every 4 hours as needed for any additional pain Please stay well hydrated and get plenty of rest Please follow up with your primary care physician for re-evaluation, additional management of your symptoms, and continued preventative care. If you do not have a primary care physician, please call the [facility] at [phone] toestablish a new primary care physician. Please return to the emergency department if you develop a sudden severe change in your symptoms, afever over 100.4, severe or recurrent vomiting, or a sudden increase in pain or if you experience any other new or worsening symptoms or concerns. * Attachments The following attachments cannot be sent through Care Everywhere. * Cellulitis (Divehi) documented in this encounter Medications at Time of Discharge cephalexin (KEFLEX) 500 mg capsule Take 1 capsule (500 mg total) by mouth 4 (four) times a day for 10 days. 40 each 05/03/2024 05/13/2024 docusate sodium (COLACE) 100 mg capsule Take 1 capsule (100 mg total) by mouth every 12 (twelve) hours. 60 capsule 04/22/2024 05/22/2024 documented as of this encounter Ordered Prescriptions Prescription Sig Dispense Quantity Refills Last Filled Start Date End Date cephalexin (KEFLEX) 500 mg capsule Take 1 capsule (500 mg total) by mouth 4 (four) times a day for 10 days. 40 each 05/03/2024 cephalexin (KEFLEX) 500 mg capsule Take 1 capsule (500 mg total) by mouth 4 (four) times a day for 10 days. 40 each 05/03/2024 documented in this encounter Discharge Disposition Disposition Code Departure Means Destination Comment s Home or Self Care documented in this encounter Progress Notes * Bernie Pereira RN - 05/02/2024 9:11 PM EDT She has an abscess on her right buttock that she noticed today. * MICHAEL Hunt - 05/02/2024 9:06 PM EDT Emergency Medicine Note Patient Name: Mayco Maldonado Initial Evaluation: 05/02/2024 : 1985 Patient's PCP: Mary Jane Hernandez MD Emergency Physician: MICHAEL Hunt History of Present Illness Chief Complaint: Chief Complaint Patient presents with Abscess Abscess on right buttock she noticed just today. HPI: This is a 39-year-old female with a past medical history of asthma, epilepsy, hyperlipidemia, GERD,history of CVA not anticoagulated who is presenting today with complaint of abscess. Patient reports since yesterday she noted an abscess to her right buttock. Reports a history of similar abscesses in the past, for which she had needed incision and drainage. Reports pain in this area, denies knowndischarge. She denies fever nausea vomiting diarrhea. ROS: I have performed a ROS with the pertinent positives and negatives documented in the history ofpresent illness. Previous History Past Medical History: Diagnosis Date Acute migraine Anxiety Asthma Autism Bipolar 1 disorder (CMS/HCC) Depression GERD (gastroesophageal reflux disease) Hyperlipidemia Hypotension IBS (irritable bowel syndrome) Insomnia Seizures (CMS/HCC) Sleep apnea Past Surgical History: Procedure Laterality Date SECTION Social History Tobacco Use Smoking status: Every Day Types: Cigarettes Smokeless tobacco: Current Substance Use Topics Alcohol use: Never Drug use: Never No family history on file. is allergic to azithromycin, codeine, geodon [ziprasidone hcl], haloperidol, celexa [citalopram], depakote [divalproex], effexor [venlafaxine], flagyl [metronidazole], latex, risperidone, and zoloft [sertraline]. No current facility-administered medications on file prior to encounter. Current Outpatient Medications on File Prior to Encounter Medication Sig Dispense Refill docusate sodium (COLACE) 100 mg capsule Take 1 capsule (100 mg total) by mouth every 12 (twelve) hours. 60 capsule 0 [] lactulose (CEPHULAC) 20 gram packet Take 1 packet (20 g total) by mouth 2 (two) times a day for 5 days. 10 packet 0 Physical Exam ED Triage Vitals [05/02/24 2116] Temp Heart Rate Resp BP 36.3 ??C (97.3 ??F) 94 18 105/78 SpO2 Temp Source Heart Rate Source Patient Position 99 % Oral Radial Sitting BP Location FiO2 (%) Right arm -- General: awake, calm, cooperative, in no acute distress. Skin: Right gluteal cleft with erythema, edema superior to rectum. Area is open, no active drainage. Pain to palpation of perirectal region. Eyes: PERRLA, EOMI. ENMT: Oral mucosa is moist, normal phonation, managing secretions. Respiratory: No increased work of breathing. Cardiovascular: Warm and well perfused MSK: Moving all extremities spontaneously with full ROM, no edema or deformity noted. Ambulatory Neurologic: Awake, alert, and oriented x3. No focal deficits. Psychiatric: Appropriate mood and affect Results Vitals: 05/02/24 2116 BP: 105/78 BP Location: Right arm Patient Position: Sitting Pulse: 94 Resp: 18 Temp: 36.3 ??C (97.3 ??F) TempSrc: Oral SpO2: 99% Weight: 67.1 kg (148 lb) Height: 1.549 m (61 ) Labs Reviewed CBC WITH AUTO DIFFERENTIAL - Abnormal Result Value WBC 10.8 RBC 3.70 (*) Hemoglobin 11.8 Hematocrit 36.2 MCV 98.4 (*) MCH 32.1 (*) MCHC 32.6 RDW 13.3 Platelets 206 MPV 10.9 NRBC 0.0 NRBC Absolute 0.00 Neutrophils Relative 54.5 Lymphocytes Relative 32.9 Monocytes Relative 10.1 Eosinophils Relative 1.8 Basophils Relative 0.3 Immature Granulocytes Relative 0.4 Neutrophils Absolute 5.90 Lymphocytes Absolute 3.56 Monocytes Absolute 1.09 (*) Eosinophils Absolute 0.19 Basophils Absolute 0.03 Immature Granulocytes Absolute 0.04 (*) POC , URINE DIAGNOSTIC - Normal HCG, Ur POC Negative POC hCG Int QC Pass? Yes CBC AND DIFFERENTIAL Narrative: The following orders were created for panel order CBC and differential. Procedure Abnormality Status --------- ------ CBC auto differential[[id number]] Abnormal Final result Please view results for these tests on the individual orders. BASIC METABOLIC PANEL Abnormal Labs Reviewed CBC WITH AUTO DIFFERENTIAL - Abnormal; Notable for the following components: Result Value RBC 3.70 (*) MCV 98.4 (*) MCH 32.1 (*) Monocytes Absolute 1.09 (*) Immature Granulocytes Absolute 0.04 (*) All other components within normal limits CT Pelvis w Contrast (Results Pending) Differential Diagnosis Perianal abscess, pilonidal cyst, pilonidal abscess, cellulitis, fistula Medical Decision Making -year-old female presenting with 2 days of concern of right buttock abscess. On exam patient alert and oriented no acute distress she is hemodynamically stable and afebrile. The right gluteal cleft with erythema, edema superior to rectum. Area is open, no active drainage. Pain to palpation of perirectal region. Given family to the rectum with pain to the perirectal region will obtain CT pelvis. Medications - No data to display ED Course as of 05/03/24310 Roxie May 03, [id number] Patient care signed out to Stalin Youssef PA-C at [address] [BT] ED Course User Index [BT] MICHAEL Hunt Procedures Procedures Diagnosis No diagnosis found. Disposition Data Unavailable ED Prescriptions None Physician Attestation MICHAEL Hunt 05/03/24 0206 MICHAEL Hunt 05/03/24310 Cosigned by Zara Sotelo MD at 05/03/2024 7:33 AM EDT documented in this encounter Miscellaneous Notes * ED Bed Hold Note - Tiara Rockwell RN - 05/03/2024 3:17 AM EDT Bed: [facility] Expected date: Expected time: Means of arrival: Comments: RME RM38 documented in this encounter Plan of Treatment Not on file documented as of this encounter Procedures Procedure Name Priority Date/Time Associated Diagnosis Comments CT PELVIS W CONTRAST STAT 05/03/2024 4:07 AM EDT CBC WITH AUTO DIFFERENTIAL STAT 05/03/2024 2:30 AM EDT CBC AND DIFFERENTIAL STAT 05/03/2024 2:30 AM EDT BASIC METABOLIC PANEL STAT 05/03/2024 2:30 AM EDT POC , URINE DIAGNOSTIC STAT 05/03/2024 2:13 AM EDT documented in this encounter Results * CT Pelvis w Contrast (05/03/2024 4:07 [...] RODRIGUEZ IMG CT PROCEDURES Final Result * (ABNORMAL) CBC auto differential (05/03/2024 2:30 AM EDT) [facility] WBC 10.8 4.8 - 10.8 K/mcL LAB HEMETOLOGY METHOD 05/03/2024 2:58 AM EDT [facility] RBC 3.70(L) 3.80 - 4.80 M/mcL LAB HEMETOLOGY METHOD 05/03/2024 2:58 AM EDT [facility] Hemoglobin 11.8 11.5 - 16.0 g/dL LAB [facility] Hematocrit 36.2 35.0 - 47.0 % LAB HEMETOLOGY METHOD [facility]03[facility]2024 [facility] MCV 98.4(H) 79.0 - 98.0 FL LAB HEMETOLOGY METHOD 05/03/2024 [facility] MCH 32.1(H) 27.0 - 32.0 pcg LAB HEMETOLOGY METHOD 05/03/2024 [facility] MCHC 32.6 32.0 - 37.0 g/dL LAB HEMETOLOGY METHOD 05/03/2024 2:58 AM EDT [facility] RDW 13.3 11.0 - 15.0 % LAB HEMETOLOGY METHOD 05/03/2024 2:58 AM EDT [facility] Platelets 206 130 - 400 K/mcL LAB HEMETOLOGY METHOD 05/03[facility]2024 [facility] MPV 10.9 7.0 - 11.0 FL LAB HEMETOLOGY METHOD 05/03/2024 2:58 AM EDT [facility] NRBC 0.0 <1.0 % LAB HEMETOLOGY METHOD 05/03/2024 2:58 AM [facility] NRBC Absolute 0.00 <0.10 K/mcL LAB HEMETOLOGY METHOD 05/03/2024 2:58 AM [facility] Neutrophils Relative 54.5 % LAB HEMETOLOGY METHOD 05/03/2024 2:58 AM [facility] Lymphocytes Relative 32.9 % LAB HEMETOLOGY METHOD 05/03/2024 2:58 AM [facility] Monocytes Relative 10.1 % LAB HEMETOLOGY METHOD 05/03/2024 2:58 AM [facility] Eosinophils Relative 1.8 % LAB HEMETOLOGY METHOD 05/03/2024 2:58 AM [facility] Basophils Relative 0.3 % LAB HEMETOLOGY METHOD 05/03/2024 2:58 AM [facility] Immature Granulocytes Relative 0.4 % LAB HEMETOLOGY METHOD 05/03/2024 2:58 AM [facility] Neutrophils Absolute 5.90 1.50 - 7.00 K/mcL LAB HEMETOLOGY METHOD 05/03/2024 2:58 AM [facility] Lymphocytes Absolute 3.56 1.00 - 5.00 K/mcL LAB HEMETOLOGY METHOD 05/03/2024 2:58 AM [facility] Monocytes Absolute 1.09(H) 0.20 - 1.00 K/mcL LAB HEMETOLOGY METHOD 05/03/2024 2:58 AM [facility] Eosinophils Absolute 0.19 0.00 - 0.50 K/mcL LAB HEMETOLOGY METHOD 05/03/2024 2:58 AM [facility] Basophils Absolute 0.03 0.00 - 0.20 K/mcL LAB HEMETOLOGY METHOD 05/03/2024 2:58 AM [facility] Immature Granulocytes Absolute 0.04(H) 0.00 - 0.03 K/mcL LAB HEMETOLOGY METHOD 05/03/2024 2:58 AM EDT [facility] Blood Venous blood specimen / Unknown Venipuncture / Unknown 05/03/2024 2:30 AM EDT 05/03/2024 2:54 AM EDT us Isabelle RODRIGUEZ LAB BLOOD ORDERABLES Final Res ult [facility] [address] [place] [address], [place] [phone] * (ABNORMAL) Basic metabolic panel (05/03/2024 2:30 AM EDT) Sodium 144 133 - 145 mmol/L LAB CHEMISTRY METHOD 05/03/2024 3:15 AM [facility] Potassium 3.5 3.5 - 5.5 mmol/L LAB CHEMISTRY METHOD 05/03/2024 3:15 AM [facility] Chloride 115(H) 96 - 110 mmol/L LAB CHEMISTRY METHOD 05/03/2024 3:15 AM [facility] CO2 21 21 - 32 mmol/L LAB CHEMISTRY METHOD 05/03/2024 3:15 AM [facility] Anion Gap 8 3 - 11 LAB CHEMISTRY METHOD 05/03/2024 3:15 AM [facility] Glucose 98 70 - 100 mg/dL LAB CHEMISTRY METHOD 05/03/2024 3:15 AM [facility] BUN 12 5 - 25 mg/dL LAB CHEMISTRY METHOD 05/03/2024 3:15 AM [facility] Creatinine 0.70 0.50 - 1.10 mg/dL LAB CHEMISTRY METHOD 05/03/2024 3:15 AM [facility] eGFR 112 >=60 mL/min/1. 73m2 LAB CHEMISTRY METHOD 05/03/2024 3:15 AM EDT [facility] Comment:Calculation based on the??Chronic Kidney Disease Epidemiology Collaboration (CKD-EPI) equation refit??without adjustment for race. BUN/Creatinine Ratio 17.1 LAB CHEMISTRY METHOD 05/03/2024 3:15 AM EDT [facility] Calcium 9.1 8.5 - 10.5 mg/dL LAB CHEMISTRY METHOD 05/03/2024 3:15 AM EDT [facility] Blood Venous blood specimen / Unknown Venipuncture / Unknown 05/03/2024 2:30 AM EDT 05/03/2024 2:54 AM EDT us Isabelle RODRIGUEZ LAB BLOOD ORDERABLES Final Res ult [facility] [address] [place] [address], * POC , urine manually resulted (05/03/2024 2:13 AM EDT) HCG, Ur POC Negative Negative POC hCG Int QC Pass? Yes Yes Urine Urine specimen obtained by clean catch procedure / Unknown 05/03/2024 2:13 AM EDT us Isabelle RODRIGUEZ POINT OF CARE TEST ENTER/EDIT ORDERABLES Final Result documented in this encounter Visit Diagnoses Diagnosis Cellulitis of buttock- Primary Cellulitis and abscess of buttock documented in this encounter Administered Medications Inactive Administered Medications - up to 3 most recent administrations Medication Order MAR Action Action Date Dose Rate Site cephalexin (KEFLEX) capsule 500 mg 500 mg, oral, Once, On Roxie 05/03/24 at 0545, For 1 dose, Indication: Skin/Soft Tissue Given 05/03/2024 5:52 AM EDT 500 mg iopamidoL (ISOVUE-370) 370 mg iodine /mL (76 %) injection 90 mL 90 mL, intravenous, Once in imaging, Starting on Roxie 05/03/24 at 0401, For 1 dose Given 05/03/2024 4:02 AM EDT 90 mL sodium chloride 0.9 % flush 10 mL 10 mL, intravenous, Once, On Roxie 05/03/24 at 0402, For 1 dose Given 05/03/2024 4:02 AM EDT 10 mL documented in this encounter Discontinued Medications Medication Sig Discontinue Reason Start Date End Da te cephalexin (KEFLEX) 500 mg capsule Take 1 capsule (500 mg total) by mouth 4 (four) times a day for 10 days. 05/03/2024 05/03/2024 documented as of this encounter Active and Recently Administered Medications Times are shown in EDT. Scheduled Medication Order 05/01/2024 05/02/2024 05/03/2024 cephalexin (KEFLEX) capsule 500 mg (COMPLETED) 500 mg, oral, Once, On Roxie 05/03/24 at 0545, For 1 dose, Indication: Skin/Soft Tissue 0552 (Given - Provid er: Latisha Gagnon RN) iopamidoL (ISOVUE-370) 370 mg iodine /mL (76 %) injection 90 mL (COMPLETED) 90 mL, intravenous, Once in imaging, Starting on Roxie 05/03/24 at 0401, For 1 dose 0402 (Given - Provid er: Tru Camp) sodium chloride 0.9 % flush 10 mL (COMPLETED) 10 mL, intravenous, Once, On Roxie 05/03/24 at 0402, For 1 dose 0402 (Given - Provid er: Tru Camp) documented in this encounter Care Teams Research Engineer Relationship Specialty Start Date End Date Mary Jane Hernandez MD [address] [place] [phone] PCP - General 10/27/21 documented as of this encounter
--- OUTSIDE RECORDS SUMMARY | 2024-05-07 18:14 | XMS_ITS | Clinical Summary ---
Author Organization [facility] Address [address] [place] [phone] Phone Care Team Providers Care Staff Psychologist Name Role Phone Mary Jane Hernandez MD Primary Care Provider [phone] Allergies Active Allergy Reactions Criticality Noted Date Comments Azithromycin Other (see comments) 09/16/2020 Brassica Oleracea 04/30/2021 Cabbage Other (see comments) 10/13/2020 Citalopram Other (see comments) 09/16/2020 Coconut Fatty Acid Other (see comments) Codeine Other (see comments) 09/16/2020 Fish-Derived Products Anaphylaxis High 10/13/2020 Fluoxetine Other (see comments) 09/16/2020 Garlic Other (see comments) 10/13/2020 Gluten Meal 06/03/2022 Haloperidol Other (see comments) 09/16/2020 Latex Other (see comments) 09/16/2020 Metronidazole Other (see comments) 09/16/2020 Nicotine Itching,Other (see comments) Onion Other (see comments) 10/13/2020 Oxycodone Other (see comments) 09/16/2020 Oxycodone-Acetaminophen Other (see comments) Procaine Other (see comments) 09/16/2020 Prunus Persica Other (see comments) 04/30/2021 Risperidone Other (see comments) 09/16/2020 Sertraline Anaphylaxis High 09/16/2020 Spinach Other (see comments) 10/13/2020 [employer] Extract Other (see comments) 021 Wound Dressings Other (see comments) 09/16/2020 Tomato Other (see comments) 10/13/2020 Valproic Acid Other (see comments) 09/16/2020 Venlafaxine Other (see comments) 09/16/2020 Wound Dressing Adhesive Rash Low 10/13/2020 Ziprasidone Other (see comments) 09/16/2020 Medications aclidinium (Tudorza Pressair) 400 MCG/ACT inhaler Inhale 2 (two) times a day Active fluticasone (FLONASE) 50 MCG/ACT nasal spray Administer 1 spray into each nostril if needed Active levalbuterol (XOPENEX HFA) 45 MCG/ACT inhaler Active sucralfate (CARAFATE) 1 g tablet Take 1 tablet by mouth 4 (four) times a day Active levETIRAcetam (KEPPRA) 500 MG tablet Take 500 mg by mouth 2 (two) times a day Active nicotine polacrilex (NICORETTE) 2 MG gum Chew 2 mg if needed for smoking cessation Active docusate sodium (COLACE) 100 MG capsule Take 100 mg by mouth 3 (three) times a day if needed for constipation Active cyclobenzaprine (FLEXERIL) 5 MG tablet Take 5 mg by mouth 3 (three) times a day if needed for muscle spasms Active lurasidone (LATUDA) 20 MG tablet Take 40 mg by mouth 1 (one) time each day with breakfast Active atorvastatin (LIPITOR) 40 MG tablet Take 40 mg by mouth 1 (one) time each day Active lidocaine (LIDODERM) 5 % patch Apply 1 patch topically if needed for mild pain Remove & discard patch within 12 hours or as directed by MD. Active clotrimazole (LOTRIMIN) 1 % cream Apply topically 2 (two) times a day Active aluminum-magnes ium hydroxide-simet hicone (MAALOX MAX) 400-400-40 MG/5ML suspension Take by mouth if needed for indigestion or heartburn Active chlorhexidine (PERIDEX) 0.12 % solution Use 15 mL in the mouth or throat in the morning and 15 mL in the evening. Active EPINEPHrine (EPIPEN) 0.3 MG/0.3ML injection syringe 2 Active Melatonin 5 MG tablet Take 5 mg by mouth 2 Active amitriptyline (ELAVIL) 10 MG tablet Take 1 tablet by mouth 1 (one) time each day 3 Active topiramate (TOPAMAX) 100 MG tablet Take 1 tablet by mouth in the morning and 1 tablet in the evening and 1 tablet before bedtime. 3 Active pantoprazole (PROTONIX) 20 MG EC tablet Take 1 tablet by mouth 1 (one) time each day 3 Active zolpidem (AMBIEN) 5 MG tablet 3 Active Riboflavin (Vitamin B-2) 100 MG tablet 3 Active Enulose 10 GM/15ML solution oral solution 3 Active Aspirin Low Dose 81 MG chewable tablet 3 Active OLANZapine (ZyPREXA) 2.5 MG tablet 3 Active OLANZapine (ZyPREXA) 10 MG tablet 3 Active midodrine (PROAMATINE) 10 MG tablet Take 1 tablet (10 mg total) by mouth in the morning and 1 tablet (10 mg total) in the evening and 1 tablet (10 mg total) before bedtime. 270 tablet 3 4 Active Active Problems Problem Noted Date Diagnosed Date Gastroesophageal reflux disease 01/06/2023 01/06/2023 Left flank pain 06/03/2022 Recurrent and persistent hem aturia with minimal change lesion 06/03/2022 COVID-19 03/07/2022 01/06/2023 Overview (01/06/2023): Problem added by Discern Expert Alcohol abuse 04/30/2021 Overview (04/30/2021): Patient reports she has been sober x 5 years and goes to AA meeting. 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 Uses CPAP every night to sleep 5.0-8.0 Agitation 10/14/2020 Low blood pressure 09/16/2020 Bipolar disorder 06/15/2011 Overview (04/30/2021): Michael [facility] Not currently on medications. States feels stable. Immunizations Name Administration Dates Next Due Hep B, Unspecified 11/24/2009 Hepatitis A 11/24/2009 Influenza Whole 10/26/2010 Influenza, Unspecified 12/03/2021 MMR 07/24/2020 Moderna SARS-COV-2 07/08/2020,06/06/2020 Pneumococcal Polysaccharide 07/01/2010 Tdap 07/23/2020,11/20/2012,06/14/2008 ,11/04/2007 Social History Tobacco Use Types Packs/Day Years Used Date Smoking Tobacco: Every Day Cigarettes Smokeless Tobacco: Current Tobacco Cessation:Ready to Q uit: No; Counseling Given: No Alcohol Use Standard Drinks/Week Comments No 0 (1 standard drink = 0.6 oz pur e alcohol) Comments Unknown Sex and Gender Information Value Date Recorded Sex Assigned at Not on file Legal Sex Female 4:53 PM EST Gender Identity Not on file Sexual Orientation Not on file Last Filed Vital Signs Vital Sign Reading Time Taken Comments Blood Pressure 120/58 01/09/2024 1:02 PM EST Pulse 93 01/09/2024 1:02 PM EST Temperature - - Respiratory Rate - - Oxygen Saturation 98% 01/07/2023 10:32 AM EST Inhaled Oxygen Concentration - - Weight 65.8 kg (145 lb) 01/09/2024 1:02 PM EST Height 154.9 cm (5' 1 ) 07/12/2019 12:00 PM EDT Body Mass Index 27.4 07/12/2019 12:00 PM EDT Plan of Treatment Upcoming Encounters Date Type Department Care Team (Late st Contact Info) Description 01/14/2025 1:00 PM EST Office Visit [facility] [place] [facility]. [address] [phone] Jose Luis Savage MD [address] [phone] Health Maintenance Due Date Last Done Comments Hepatitis B Vaccine (1 of 3 - 19+ 3-dose series) 2003 11/24/2009 Pneumococcal Vaccine: Pediat rics (0 to 5 Years) and At-Risk Patients (6 to 64 Years) (2 of 2 - PCV) 07/02/2011 07/01/2010 Influenza Vaccine (#1) 2023 12/03/2021, 2010 Insurance ([id number]) MICHAEL LUDWIG [id number] [facility] ([id number]) MICHAEL LUDWIG [phone] Care Teams Staff Psychologist Relationship Specialty Start Date End Date Mary Jane Hernandez MD [address] [place] [phone] PCP - General Internal Medicine 04/30/21
--- OUTSIDE RECORDS SUMMARY | 2024-05-07 18:14 | XMS_ITS | Encounter Summary ---
Author Organization [facility] Address [address] [place] [address] Care Team Providers Care University Administrator Name Role Phone Mary Jane Hernandez MD Primary Care Provider [phone] Reason for Visit * Reason Comments Stroke Encounter Details Date Type Department Care Team ([facility] st Contact Info) Description 05/03/2024 6:45 PM EDT - 05/03/2024 11:10 PM EDT Emergency [facility] Emergency [address] [place] [address] Héctor Thomas MD [address] [address] Stroke-like symptoms (Primary Dx); Weakness of left side of body Discharge Disposition: Home or Self Care Social [...] Mass Index 27.98 05/03/2024 7:49 PM EDT documented in this encounter Functional [...] * Discharge Instructions* MICHAEL Duarte - 05/03/2024 10:59 PM EDT Thank you for choosing [facility]'s Emergency Department for your care today. Thankfully your laboratory evaluation, exam, CT head, CTA neck, and MRI of your brain today showed no evidence of any acute stroke causing your initial presenting symptoms. Seeing as this workup has been nondiagnostic and your symptoms have resolved, at this time there is no indication for admission to the hospital or continued ED observation and it is safe to discharge you home. Please be sure to follow-up with your primary care provider for reevaluation of your symptoms and any repeat imagingas deemed appropriate. Please stay well hydrated and get plenty of rest Please follow up with your primary care physician for re-evaluation, additional management of your symptoms, and continued preventative care. If you do not have a primary care physician, please call the [facility] at [phone] toestablish a new primary care physician. Please return to the emergency department if you develop a sudden severe change in your symptoms orif you experience any other new or worsening symptoms or concerns. * Attachments The following attachments cannot be sent through Care Everywhere. * Stroke: Symptoms: General Info (Kazakh) documented in this encounter Medications at Time of Discharge cephalexin (KEFLEX) 500 mg capsule Take 1 capsule (500 mg total) by mouth 4 (four) times a day for 10 days. 40 each 05/03/2024 05/13/2024 docusate sodium (COLACE) 100 mg capsule Take 1 capsule (100 mg total) by mouth every 12 (twelve) hours. 60 capsule 04/22/2024 05/22/2024 documented as of this encounter Discharge Disposition Disposition Code Departure Means Destination Comment s Home or Self Care documented in this encounter Progress Notes * June Conrad RN - 05/03/2024 6:56 PM EDT PT arrives to ED by ambulance from community with complaints of right sided facial droop and left sided weakness with poor visual tracking. PT stated sudden onset at 1730. Pts noted symptoms first. PT has 8/10 chest pain. Received 324mg aspirin in route. PT not on thinners. PT has had 3 previous strokes. * Héctor Thomas MD - 05/03/2024 6:44 PM EDTAssociated Order(s): Critical Care Emergency Medicine Note Patient Name: Mayco Maldonado Initial Evaluation: 05/03/2024 : 1985 Patient's PCP: Mary Jane Hernandez MD Emergency Physician: Héctor Thomas MD History of Present Illness Chief Complaint: Chief Complaint Patient presents with Stroke HPI: 39-year-old female with a past medical history of bipolar disorder migraines seizures asthma, epilepsy, hyperlipidemia, GERD, history of CVA allegedly 6 months ago. She is presenting for acute change left-sided weakness and numbness starting around 5:30 PM history of smoking. No diabetes no high hypotension. Does have history of migraines and seizures she takes Keppra for this but she is a presents with ROS: I have performed a ROS with [...] flagyl [metronidazole], latex, risperidone, and zoloft [sertraline]. Current Facility-Administered Medications on File Prior to Encounter Medication Dose Route Frequency Provider Last Rate Last Admin [COMPLETED] cephalexin (KEFLEX) capsule 500 mg 500 mg oral Once MICHAEL Duarte 500 mg at 05/03/24 0566 [COMPLETED] iopamidoL (ISOVUE-370) 370 mg iodine /mL (76 %) injection 90 mL 90 mL intravenous Once in imaging MICHAEL Hunt 90 mL at 05/03/24 0402 [COMPLETED] sodium chloride 0.9 % flush 10 mL 10 mL intravenous Once MICHAEL Hunt 10 mL at 05/03/24 0402 Current Outpatient Medications on File Prior to Encounter Medication Sig Dispense Refill cephalexin (KEFLEX) 500 mg capsule Take 1 capsule (500 mg total) by mouth 4 (four) times a day for 10 days. 40 each 0 docusate sodium (COLACE) 100 mg capsule Take 1 capsule (100 mg total) by mouth every 12 (twelve) hours. 60 capsule 0 [] lactulose (CEPHULAC) 20 gram packet Take 1 packet (20 g total) by mouth 2 (two) times a day for 5 days. 10 packet 0 [DISCONTINUED] cephalexin (KEFLEX) 500 mg capsule Take 1 capsule (500 mg total) by mouth 4 (four) times a day for 10 days. 40 each 0 Physical Exam ED Triage Vitals Temp Pulse Resp BP -- -- -- -- SpO2 Temp src Heart Rate Source Patient Position -- -- -- -- BP Location FiO2 (%) -- -- General: Well-appearing, well nourished, in no acute distress HEENT: PERRL, EOMI, external ears and nose appear unremarkable, airway is patent Neck: Supple, full range of motion, no meningismus, no JVD Chest: Clear to auscultation; no evidence of respiratory distress Circulatory: The rate and rhythm , no murmurs rubs or gallops Abdomen: Non-distended, Non-Tender Extremities: Normal ROM, No edema, ranging all extremities without difficulty Skin: Warm and dry, well-perfused , no rashes noted old skin stenting scars on arms Neuro: Alert and oriented x 3. Questionable mild left-sided sensory deficit and mild drift on the left side Psyche: Somewhat bizarre affect Results Labs Reviewed CBC AND DIFFERENTIAL Narrative: The following orders were created for panel order CBC and differential. Procedure Abnormality Status --------- ------ CBC auto differential[[id number]] Please view results for these tests on the individual orders. BASIC METABOLIC PANEL PROTHROMBIN TIME WITH INR ACTIVATED PARTIAL THROMBOPLASTIN TIME CBC WITH AUTO DIFFERENTIAL POC GLUCOSE Abnormal Labs Reviewed - No abnormal labs to display CT Head Stroke wo Contrast Final Result Impression: 1. No acute intracranial abnormalities. This document has been electronically signed by: Isaías Cuenca MD on 05/03/2024 19:09:43 CT Angio Head/Neck Stroke wo and/or w Contrast (Results Pending) XR Chest 1 View (Results Pending) I have discussed the incidental/abnormal imaging and/or lab abnormalities with the patient and haveinstructed them the need for further evaluation and workup with their primary care doctor. I have provided the patient with a paper copy of the abnormality. The laboratory results, imaging results and other diagnostic exam results were reviewed in the EMR. EKG Interpretation EKG shows a normal sinus rhythm 94 bpm nonspecific T wave changes in V2 V3 as well as flattening in3 and aVL. Critical Care Time None ? Medical Decision Making Medications iopamidoL (ISOVUE-370) 370 mg iodine /mL (76 %) injection 100 mL (90 mL intravenous Given 05/03/241899) sodium chloride 0.9 % flush 10 mL (10 mL intravenous Given 05/03/241900) ED Course as of 05/07/24 0815 [facility] May 03, 2024 1950 Discussed the case with Dr. Dodson and we both performed a bedside exam. Patient's NIH is seem to be improving she has left drift on the left upper and lower extremities. Based on her improving neurologic exam and given the risk of tPA we decided she to defer tPA due to the low NIH improving symptoms. Will obtain a stat MRI. And admit for observation [JL] 2002 Patient received aspirin by EMS prior to arrival [JL] 2026 Patient signed out to this provider at shift change, in summary patient is a 39-year-old female presenting to the ED for evaluation of possible stroke, patient seen and evaluated with stroke neurology, CT shows no evidence of acute stroke, patient did not receive tPA. Patient signed out pending results of MRI. Per signout patient will be admitted for observation pending no evidence of acute process on MRI. [RM] 2207 Patient's MRI and CTA neck are unremarkable, patient will be admitted for observation. [RM] 2252 Upon reassessment the patient's focal neurological deficits have completely resolved. Upon further discussion with attending physician, hospitalist, and the patient, at this time seeing as patient's symptoms have fully resolved, and CTA and MRI are both negative for acute stroke, patient is appropriate for discharge home and outpatient follow-up with PCP. This option was discussed with the patient and her spouse, both the patient and her spouse prefer to be discharged and follow-up outpatient. We will cancel admission and discharge for outpatient follow-up. [RM] ED Course User Index [JL] Héctor Thomas MD [RM] MICHAEL Duarte Clinical Impressions as of 05/07/24 0815 Stroke-like symptoms Weakness of left side of body Patient was seen immediately on arrival due to new onset neurodeficit. NIH stroke scale of 3 last known well was 5:29 PM as per patient. The window however the patient's psychiatric history I am reluctant to attribute this entirely to CVA however will discuss the case with neurologist she is a relatively low deficit The risk of tPA may outweigh the benefits. We discussed with neurology Procedures Critical Care Performed by: Héctor Thomas MD Authorized by: Héctor Thomas MD Critical care provider statement: Critical care time (minutes): 45 Critical care was necessary to treat or prevent imminent or life-threatening deterioration of the following conditions: REPRODUCTIVE ENDOCRINOLOGIST failure or compromise Critical care was time spent personally by me on the following activities: Discussions with consultants, ordering and review of radiographic studies, ordering and review of laboratory studies, re-evaluation of patient's condition and obtaining history from patient or surrogate I assumed direction of critical care for this patient from another provider in my specialty: no Comments: Patient required extensive time due to stroke alert patient being in. tPA window a bedside consult was done with teleneurology and using shared decision-making we decided against tPA due to the improving neurologic symptoms and low NIHSS, and likelihood that this may be psychogenic or migranous in nature. Diagnosis No diagnosis found. Disposition Data Unavailable ED Prescriptions None Physician Attestation Héctor Thomas MD 05/03/24 191 Héctor Thomas MD 05/03/24 1921 Héctor Thomas MD 05/03/242002 Héctor Thomas MD 05/03/242003 Héctor Thomas MD 05/07/24 0816 Héctor Thomas MD 05/07/24 0816 documented in this encounter Consult Notes * Sadi Dodson MD - 05/03/2024 7:24 PM EDT Telestroke initial consult The patient and/or family consented to consult based on capacity assessment specifically for use inpatients with acute stroke symptoms. The hosting facility is responsible to follow standard procedure to explained to the patient and/or family the remote visit will be submitted to their insurance and that they are responsible for any copay or deductible charges. Risk and benefits were explained to the patient and/or family by requesting provider and indicated his/her understanding of the details and a willingness to undergo treatment, receiving assessment, diagnosis, management, and/or remoteconsultative support while exhibiting signs and symptoms consistent with acute stroke syndrome, using HIPAA compliant telemedicine communication technologies. CHIEF COMPLAINT: Left-sided weakness. HISTORY OF PRESENT ILLNESS: 39-year-old woman with a past medical history significant for bipolar disorder, migraines, seizure disorder, asthma, epilepsy, hyperlipidemia, GERD, reportedly previous ischemic [facility] the [facility]-sided [facility]. In the [facility] code stroke was activated at 7:15 PM on 05/03/2024 which I immediately responded over the phone. I evaluated the patient on the telestroke machine along with Dr. Thomas. Patient reports that she was in her usual usual state of health until 5:30 PM when all of a sudden she started having chest pain and left-sided numbness. Patient also reported right-sided headache. Denied any falls any trauma to the neck. No history of any irregular heart rhythm concerning for atrial fibrillation. Denied anyhistory of any venous thrombosis. Denied being on oral contraceptive pills. Reports that she has previous history of TIA similarly which has self resolved. Denied any possibility of . Given patient was in 4.5 hour window I along with the ED attending discussed the risk and benefit of the of thrombolytics with the patient including up to 6% risk of hemorrhage. After extensive discussion with the patient and her patient reported that her symptoms are improving and and wanted to hold off on thrombolytics with a plan to get hyperacute MRI of the brain. REVIEW OF SYSTEMS: All aspects of the 14 review of systems were negative except for the above mentioned. PAST MEDICAL HISTORY: Reviewed Past Medical History: Diagnosis Date Acute migraine Anxiety Asthma Autism Bipolar 1 disorder (CMS/HCC) Depression GERD (gastroesophageal reflux disease) Hyperlipidemia Hypotension IBS (irritable bowel syndrome) Insomnia Seizures (CMS/HCC) Sleep apnea PAST SURGICAL HISTORY:Reviewed Past Surgical History: Procedure Laterality Date SECTION MEDICATIONS: Reviewed @MEDSIGONLY@ ALLERGIES: Reviewed Azithromycin, Codeine, Geodon [ziprasidone hcl], Haloperidol, Celexa [citalopram], Depakote [divalproex], Effexor [venlafaxine], Flagyl [metronidazole], Latex, Risperidone, and Zoloft [sertraline] SOCIAL HISTORY: Reviewed Social History Tobacco Use Smoking status: Every Day Types: Cigarettes Smokeless tobacco: Current Substance Use Topics Alcohol use: Never Social History Social History Narrative Not on file Social History Tobacco Use Smoking Status Every Day Types: Cigarettes Smokeless Tobacco Current Social History Substance and Sexual Activity Alcohol Use Never Social History Substance and Sexual Activity Drug Use Never FAMILY HISTORY: Reviewed No family history on file. VITAL SIGNS FOR PAST 24 Hours ([High] [Low] (Last Recorded Value)): Temp: 36.8 ??C (98.2 ??F) (05/04 423) Heart Rate: 102 (05/04 423) Resp: 16 (05/04 423) BP: 91/65 (05/04 423) Telestroke exam: NIHSS was done at the same time of code stroke activation. GENERAL: Middle-age woman lying in bed not in any acute distress. NEUROLOGICAL EXAM: MENTAL STATUS: Patient is alert and oriented to name place and person. CRANIAL NERVES: Patient is able to look in bilateral horizontal gaze without any difficulty. Grossly visual montes intact. No obvious facial droop. Reports reduced sensation to light touch in right side of the face in comparison to left. MOTOR: No drift in right upper and lower extremity. Had slight downward drift in left upper and lower extremity. SENSORY: Reports reduced sensation to light touch in left upper and lower extremity in comparison to right. COORDINATION: Normal uupjpm-bjyh-dlylgr GAIT: Deferred NIHSS: 1a) LOC: 0 1b) LOC questions (age/month): 0 1c) LOC commands (close eyes/show host): 0 2) Best gaze: 0 3) Visual montes:0 4) Facial palsy: 0 5a) Motor left arm: 1 5b) Motor right arm: 0 6a) Motor left le 6b) Motor right le 7) Limb ataxia: 0 8) Sensory: 1 9) Best language: 0 10) Dysarthria (read word list): 0 11) Extinction/neglect (sensory/visual): 0 Total NIHSS 3 MRS prior to Presentation mRS 0 (0=no symptoms; 1=symptoms; 2=some functional limitation; 3=cannot live alone; 4=cannot move independently; 5=bedbound) LAB: Lab Results Component Value Date WBC 10.8 05/03/2024 RBC 3.70 (L) 05/03/2024 MCV 98.4 (H) 05/03/2024 MCH 32.1 (H) 05/03/2024 MCHC 32.6 05/03/2024 RDW 13.3 05/03/2024 MPV 10.9 05/03/2024 Lab Results Component Value Date BUN 12 05/03/2024 CREATININE 0.70 05/03/2024 NA 144 05/03/2024 K 3.5 05/03/2024 CL 115 (H) 05/03/2024 CO2 21 05/03/2024 CALCIUM 9.1 05/03/2024 ALBUMIN 3.7 04/22/2024 ALKPHOS 92 04/22/2024 AST 18 04/22/2024 ALT 41 04/22/2024 No results found for: CHOL , HDL , LDLCALC , VLDL , TRIG No results found for: HGBA1C NEUROIMAGIN05/03/2024 CT head without contrast did not show any large lateral infarct or hemorrhage. 05/03/2024 CT angiogram of the head and neck not show any significant carotid stenosis at bifurcation grossly patent proximal intracranial vasculature grossly patent venous sinuses. Diagnosis History of bipolar disorder History of migraine History of seizure disorder History of asthma History of epilepsy History of hyperlipidemia History of GERD Sided numbness and weakness. ASSESSMENT AND PLAN: 39-year-old woman with a past medical history significant for bipolar disorder, migraines, seizure disorder, asthma, epilepsy, hyperlipidemia, GERD, reportedly previous TIA 6 months back presented [facility] due to the concern of left-sided weakness and numbness.. NIH stroke scale was 3. Risk and benefit of thrombolytics were discussed with the patient and her . In the setting of improving symptoms patient wanted to hold off on thrombolytics and plan was made to get hyperacute MRI of the brain. NonTenecteplase Patient : Reviewed and discussed with the patient and her . In the setting of improving symptoms at this point both and patient wants to hold off on thrombolytics and the plan was made to get hyperacute MRI of the brain. Non/Thrombectomy Patient Ineligible reason: Low NIH stroke scale and grossly patent proximal vasculature. Current Suspected etiology: Ongoing workup. RECOMMENDATIONS: -Follow-up with a stat MRI of the brain without contrast if any acute findings immediately reach out to the stroke team. -If no contraindication continue home aspirin 81 Mg p.o. daily. Depending on the findings on the MRI of the brain possibility of short-term dual antiplatelet therapy and statins can be considered. -Transthoracic echocardiogram with bubble if MRI is positive for ischemic infarct. -Depending on the findings of the MRI of the brain further plan of workup including hypercoagulableworkup and heart monitor can be considered. -Urine toxicology -Alcohol levels -HbA1c; Goal < 6.5 -Lipid Panel ;target LDL < 70 -Permissive hypertension in patients with BP <220/120 mm Hg who did not receive IV alteplase or mechanical thrombectomy and do not have a comorbid condition requiring urgent antihypertensive treatment, initiating or reinitiating treatment of hypertension within the first 24 hours -Strict NPO until passes bedside dysphagia screen/Swallow evaluation -Avoid Hyperglycemia -Keep the patient Normothermic -Smoking and tobacco use cessation counseling was performed during today's visit. 4 minutes spent with patient discussing the risks associated with smoking and using tobacco as wellas the benefits from stopping. We also discussed alternatives such as medications, nicotine patchesand nicotine gum. I specifically discussed the association between TIA/stroke and smoking/tobacco us e. -PT/OT -DVT -Neurochecks /NIHSS Q4 hour -Vitals every Q4 hour If MRI of the brain does not show any acute ischemic infarct patient should be admitted to the hospital for further monitoring and consult Dr. Reddy after evaluation by Dr. Reddy further plan canbe made. Sadi Dodson MD Dept of Neurology Vascular/Stroke Neurologist [address] [place] [address] [email or web address]: [phone] documented in this encounter Plan of Treatment Pending Results Name Type Priority Associated Diagnoses Date /Time POC glucose manually resulted Point of Care Testing STAT 05/03/2024 7:57 PM EDT Scheduled Orders Name Type Priority Associated Diagnoses Orde r Schedule POC glucose manually resulted Point of Care Testing STAT Once for 1 Occurrences starting 05/03/2024 until 05/03/2024 documented as of this encounter Procedures Procedure Name Priority Date/Time Associated Diagnosis Comments ECG ANNOTATED 05/06/2024 XR CHEST 1 VIEW STAT 05/03/2024 10:32 PM EDT BASIC METABOLIC PANEL STAT 05/03/2024 9:37 PM EDT MR BRAIN WO CONTRAST STAT 05/03/2024 8:40 PM EDT POCT GLUCOSE BLOOD Routine 05/03/2024 7: 50 PM EDT CBC WITH AUTO DIFFERENTIAL STAT 05/03/2024 7:42 PM EDT ACTIVATED PARTIAL THROMBOPLASTIN TIME STAT 05/03/2024 7:42 PM EDT PROTHROMBIN TIME WITH INR STAT 05/03/2024 7:42 PM EDT CBC AND DIFFERENTIAL STAT 05/03/2024 7:42 PM EDT HCG, SERUM, QUALITATIVE STAT 05/04/19 7:[address] ANGIO HEAD/NECK STROKE WO AND/OR W CONTRAST STAT 05/03/2024 7:[address] HEAD STROKE WO CONTRAST STAT 05/03/2024 6:57 PM EDT [facility] 30-74 MINUTES Routine 05/03/2024 6:44 PM EDT documented in this encounter Results * ECG-Annotated (05/06/2024) us Provider Onbase MD ECG ORDERABLES Final Result * XR Chest 1 View (05/03/2024 10:32 PM EDT) Anatomical Region Laterality Modality Body Radiographic Whit ging 05/04/2024 8:25 AM EDT Impressions 05/04/2024 8:26 AM EDT Impression: Discoid atelectasis in the left lower lung. Telerad PA ([id number]) -------- FINAL REPORT -------- Dictated By: Dorcas Santiago Dictated Date: 05/04/2024 08:25 ET Assigned Physician: Dorcas Santiago Reviewed and Electronically Signed By: Dorcas Santiago Signed Date: 05/04/2024 08:26 ET Workstation ID: [id number] Transcribed By: Self Edit Transcribed Date: 05/04/2024 [...] in the left lower lung. Telerad PA ([id number]) -------- FINAL REPORT -------- Dictated By: Dorcas Santiago Dictated Date: 05/04/2024 08:25 ET Assigned Physician: Dorcas Santiago Reviewed and Electronically Signed By: Dorcas Santiago Signed Date: 05/04/2024 08:26 ET Workstation ID: [id number] Transcribed By: Self Edit Transcribed Date: 05/04/2024 08:25 ET Kirk Jenkins MD IMG XR PROCEDURES Final Result * (ABNORMAL) Basic metabolic panel (05/03/2024 9:37 PM EDT) Sodium 142 133 - 145 mmol/L LAB CHEMISTRY METHOD 05/03/2024 10:15 PM [facility] Potassium 4.3 3.5 - 5.5 mmol/L LAB CHEMISTRY METHOD 05/03/2024 10:15 PM [facility] Comment:Hemolysis present Chloride 114(H) 96 - 110 mmol/L LAB CHEMISTRY METHOD 05/03/2024 10:15 PM [facility] CO2 20(L) 21 - 32 mmol/L LAB CHEMISTRY METHOD 05/03/2024 10:15 PM [facility] Anion Gap 8 3 - 11 LAB CHEMISTRY METHOD 05/03/2024 10:15 PM [facility] Glucose 95 70 - 100 mg/dL LAB CHEMISTRY METHOD 05/03/2024 10:15 PM [facility] BUN 9 5 - 25 mg/dL LAB CHEMISTRY METHOD 05/03/2024 10:15 PM [facility] Creatinine 0.63 0.50 - 1.10 mg/dL LAB CHEMISTRY METHOD 05/03/2024 10:15 PM [facility] eGFR 115 >=60 mL/min/1. 73m2 LAB CHEMISTRY METHOD 05/03/2024 10:15 PM [facility] Comment:Calculation based on the??Chronic Kidney Disease Epidemiology Collaboration (CKD-EPI) equation refit??without adjustment for race. BUN/Creatinine Ratio 14.3 LAB CHEMISTRY METHOD 05/03/2024 10:15 PM [facility] Calcium 8.6 8.5 - 10.5 mg/dL LAB CHEMISTRY METHOD 05/03/2024 10:15 PM [facility] Blood Venous blood specimen / Unknown Venipuncture / Unknown 05/03/2024 9:37 PM EDT 05/03/2024 9:49 PM EDT Kirk Jenkins MD LAB BLOOD ORDERABLES Final Resu lt [facility] [address] [place] [address], [place] [phone] * MR Brain wo Contrast (05/03/2024 8:40 [...] - 100 mg/dL 05/03/2024 7:51 PM EDT [facility] Blood Capillary blood specimen / Unknown 05/03/2024 7:50 PM EDT 05/03/2024 7:52 PM EDT Héctor Thomas MD LAB POINT OF CARE T EST DOCKED DEVICE UNSOLICITED RESULTS Final Result [facility] [address] [place] [address], [place] [phone] * hCG, serum, qualitative (05/03/2024 7:42 PM EDT) Pathologist [facility] hCG Qual Negative Negative 05/03/2024 8:21 PM EDT [facility] Blood Venous blood specimen / Unknown Venipuncture / Unknown 05/03/2024 7:42 PM EDT 05/03/2024 7:48 PM EDT Héctor Thomas MD LAB BLOOD ORDERABLES Final Result Performing Organization Address City/[facility]/ZIP Co de Phone Number [facility] [address] [place] [address], [place] [phone] * (ABNORMAL) CBC auto differential (05/03/2024 7:42 PM EDT) [facility] WBC 9.4 4.8 - 10.8 K/mcL LAB HEMETOLOGY METHOD 05/03/2024 7:56 PM EDT [facility] RBC 3.80 3.80 - 4.80 M/mcL LAB HEMETOLOGY METHOD 05/03/2024 7:56 PM EDT [facility] Hemoglobin 12.3 11.5 - 16.0 g/dL LAB HEMETOLOGY METHOD 05/03/2024 7:56 PM EDT [facility] Hematocrit 38.0 35.0 - 47.0 % LAB HEMETOLOGY METHOD 05/03/2024 7:56 PM EDT [facility] MCV 100.3(H) 79.0 - 98.0 FL LAB HEMETOLOGY METHOD 05/03/2024 7:56 PM EDT [facility] MCH 32.5(H) 27.0 - 32.0 pcg LAB HEMETOLOGY METHOD 05/03/2024 7[facility] MCHC 32.4 32.0 - 37.0 g/dL LAB HEMETOLOGY METHOD 05/03/2024 7:56 PM EDT [facility] RDW 13.3 11.0 - 15.0 % LAB HEMETOLOGY METHOD 05/03/2024 7:56 [facility] Platelets 210 130 - 400 K/mcL LAB HEMETOLOGY METHOD 05/03/2024 7:56 [facility] MPV 11.4(H) 7.0 - 11.0 FL LAB HEMETOLOGY METHOD 05/03/2024 7:56 [facility] NRBC 0.0 <1.0 % LAB HEMETOLOGY METHOD 05/03/2024 7:56 [facility] NRBC Absolute 0.00 <0.10 K/mcL LAB HEMETOLOGY METHOD 05/03/2024 7:56 [facility] Neutrophils Relative 52.1 % LAB HEMETOLOGY METHOD 05/03/2024 7:56 PM EDT [facility] Lymphocytes Relative 34.6 % LAB HEMETOLOGY METHOD 05/03/2024 7:56 PM EDT [facility] Monocytes Relative 11.3 % LAB HEMETOLOGY METHOD 05/03/2024 7:56 [facility] Eosinophils Relative 1.5 % LAB HEMETOLOGY METHOD 05/03/2024 7:56 [facility] Basophils Relative 0.3 % LAB HEMETOLOGY METHOD 05/03/2024 7:56 PM EDT [facility] Immature Granulocytes Relative 0.2 % LAB HEMETOLOGY METHOD 05/03/2024 7:56 PM EDT [facility] Neutrophils Absolute 4.91 1.50 - 7.00 K/mcL LAB HEMETOLOGY METHOD 05/03/2024 7:56 PM EDT [facility] Lymphocytes Absolute 3.27 1.00 - 5.00 K/mcL LAB HEMETOLOGY METHOD 05/03/2024 7:56 PM EDT [facility] Monocytes Absolute 1.07(H) 0.20 - 1.00 K/mcL LAB HEMETOLOGY METHOD 05/03/2024 7:56 PM EDT [facility] Eosinophils Absolute 0.14 0.00 - 0.50 K/mcL LAB HEMETOLOGY METHOD 05/03/2024 7:56 PM EDT [facility] Basophils Absolute 0.03 0.00 - 0.20 K/mcL LAB HEMETOLOGY METHOD 05/03/2024 7:56 PM EDT [facility] Immature Granulocytes Absolute 0.02 0.00 - 0.03 K/mcL LAB HEMETOLOGY METHOD 05/03/2024 7:56 PM EDT [facility] Blood Venous blood specimen / Unknown Venipuncture / Unknown 05/03/2024 7:42 PM EDT 05/03/2024 7:48 PM EDT us Kirk Jenkins MD LAB BLOOD ORDERABLES Final Resu lt [facility] [address] [place] [address], * Activated partial thromboplastin time (05/03/2024 7:42 PM EDT) aPTT 36.3 24.1 - 39.3 sec LAB COAGULATION METHOD 05/03/2024 8:05 PM EDT [facility] Blood Venous blood specimen / Unknown Venipuncture / Unknown 05/03/2024 7:42 PM EDT 05/03/2024 7:48 PM EDT us Kirk Jnekins MD LAB BLOOD ORDERABLES Final Resu lt Performing Organization Address [facility]/ZIP Co de Phone Number [facility] [address] [place] [address], [place] [phone] * Prothrombin time with INR (05/03/2024 7:42 PM EDT) Protime 11.4 10.6 - 13.9 sec LAB COAGULATION METHOD 05/03/2024 8:05 PM EDT [facility] INR 0.9 LAB COAGULATION METHOD 05/03/2024 8:05 PM EDT [facility] Blood Venous blood specimen / Unknown Venipuncture / Unknown 05/03/2024 7:42 PM EDT 05/03/2024 7:48 PM EDT us Kirk Jenkins MD LAB BLOOD ORDERABLES Final Resu lt Performing Organization Address [facility] Co de Phone Number [facility] [address] [place] [address], [place] [phone] * CT Angio Head/Neck Stroke wo and/or [...] by: Isaías Cuenca MD on 05/03/2024 19:09:43 Kirk Jenkins MD IMG CT PROCEDURES Edited Result - Final * [facility] 30-74 MINUTES (05/03/2024 6:44 PM EDT) Narrative Héctor Thomas MD - 05/03/2024 6:44 PM EDT Héctor Thomas MD ? 05/07/2024 ??8:16 AM Critical Care Performed by: Héctor Thomas MD Authorized by: Héctor Thomas MD ?? Critical care provider statement: ??Critical care time (minutes): ??45 ??Critical care was necessary to treat or prevent imminent or life-threatening deterioration of the following conditions: ??REPRODUCTIVE ENDOCRINOLOGIST failure or compromise ??Critical care was time [...] MD IN CLINIC/BEDSIDE ORDERABLE S Final Result documented in this encounter Visit Diagnoses Diagnosis Stroke-like symptoms- Primary Weakness of left side of body Other musculoskeletal symptoms referable to limbs documented in this encounter Administered Medications Inactive Administered Medications - up to 3 most recent administrations Medication Order MAR Action Action Date Dose Rate Site iopamidoL (ISOVUE-370) 370 mg iodine /mL (76 %) injection 100 mL 100 mL, intravenous, Once in imaging, Starting on Roxie 05/03/24 at 1858, For 1 dose Given 05/03/2024 7:00 PM EDT 90 mL sodium chloride 0.9 % flush 10 mL 10 mL, intravenous, Once, On Roxie 05/03/24 at 1859, For 1 dose Given 05/03/2024 7:01 PM EDT 10 mL documented in this encounter Active and Recently Administered Medications Times are shown in EDT. Scheduled Medication Order 05/01/2024 05/02/2024 05/03/2024 iopamidoL (ISOVUE-370) 370 mg iodine /mL (76 %) injection 100 mL (COMPLETED) 100 mL, intravenous, Once in imaging, Starting on Roxie 05/03/24 at 1858, For 1 dose 1900 (Given - Provid er: Roslyn Wheeler) sodium chloride 0.9 % flush 10 mL (COMPLETED) 10 mL, intravenous, Once, On Roxie 05/03/24 at 1859, For 1 dose 1901 (Given - Provid er: Roslyn Wheeler) documented in this encounter Orders EKG Orders Without Results Count Last Ordered D ate First Ordered Date ECG 12-LEAD 1 05/03/2024 Nursing Count Last Ordered Date First Orde red Date VITAL SIGNS 1 05/03/2024 documented in this encounter Care Teams University Administrator Relationship Specialty Start Date End Date Mary Jane Hernandez MD [address] [place] [id number] PCP - General 10/27/21 documented as of this encounter
[2024-05-07 18:50] LABS: Alanine Aminotransferase 24 U/L (0-31); Albumin Level 4.4 g/dL (3.5-5.0); Alkaline Phosphatase 73 U/L (39-117); Anion Gap 12 (12-20); Aspartate Amino Transferase 20 U/L (5-31); Bilirubin Total 0.3 mg/dL (0.0-1.0); Blood Urea Nitrogen 13 mg/dL (9-16); Calcium 9.5 mg/dL (8.4-10.2); Carbon Dioxide 21 mmol/L (22-29); Chloride 112 mmol/L (96-108); Creatinine Clr Calc Pharmacy 80.7; Estimated Glomerular Filt Rate > 60; Glucose Random 93 mg/dL (60-115); Potassium 4.1 mmol/L (3.3-5.1); Sodium 141 mmol/L (135-145); Total Protein 7.5 g/dL (6.5-8.0)
--- NOTE | 2024-05-07 19:37 | PC.NURSE ---
Mayco Cabello?? was [facility]? on CV for treatment of mood disorder with SI. She reported overdosing on #25? Ambien 5mg tablets when she called EMS for herself. Pt has history of numerous IPLOCs. Per crisis eval pt and SO were living with? ARIEL. MIL recently and so patient and SO are currently homeless. Mood is depressed. Affect is anxious. No psychosis noted or reported. Thought process is linear.She denies current ideation, plan or intent to harm self or others Appetite and sleep are poor. Focus is good. Tox screen was negative. Pt has remote history of alcohol use disorder. Medical Issues include epilepsy and? history of stroke, sleep apnea, renal cysts and GERD. She ambulates with a cane. She is a high fall risk. Goal of admission is to feel safe. Safety Checks are q 5 minutes.
[2024-05-07 20:00] VITALS: BP 98/57; PULSE 101; RESP 16; TEMP 36.8; O2SAT 98
[2024-05-07] MEDS: cephALEXin 500 MG CAPSULE PO (20:44)
[2024-05-07] MEDS: Cyclobenzaprine HCl 10 MG TABLET PO (20:44)
[2024-05-07] MEDS: Docusate Sodium 100 MG CAPSULE PO (20:44)
[2024-05-07] MEDS: OLANZapine 10 MG TABLET PO (20:44)
[2024-05-07] MEDS: levETIRAcetam 500 MG TABLET PO (20:44)
[2024-05-07] MEDS: Atorvastatin Calcium 40 MG TABLET PO (20:44)
[2024-05-07] MEDS: traZODone HCL 50 MG TABLET PO (20:55)
[2024-05-07 20:58] VITALS: BP 98/57
[2024-05-07] MEDS: Topiramate 100 MG TABLET PO (20:58)
[2024-05-07] MEDS: Sucralfate 1 GM TABLET PO (20:58)
[2024-05-07] MEDS: Amitriptyline HCl 10 MG TABLET PO (20:58)
[2024-05-07] MEDS: Midodrine HCl 10 MG TABLET PO (20:58)
[2024-05-08] MEDS: Omeprazole 20 MG CAPSULE.DR PO ×2 (06:03→15:58)
[2024-05-08 07:54] VITALS: BP 104/60; PULSE 92; RESP 16; TEMP 36.6; O2SAT 99
[2024-05-08] MEDS: Topiramate 100 MG TABLET PO ×3 (08:11→20:23)
[2024-05-08] MEDS: Docusate Sodium 100 MG CAPSULE PO ×2 (08:11→20:20)
[2024-05-08] MEDS: OLANZapine 2.5 MG TABLET PO ×2 (08:11→15:01)
[2024-05-08] MEDS: Lurasidone HCl 20 MG TABLET 60 MG PO (08:11)
[2024-05-08] MEDS: Cyclobenzaprine HCl 10 MG TABLET PO ×3 (08:12→20:22)
[2024-05-08] MEDS: Cyanocobalamin (Vitamin B-12) 1,000 MCG TABLET 1000 MCG PO (08:12)
[2024-05-08] MEDS: levETIRAcetam 500 MG TABLET PO ×2 (08:12→20:24)
[2024-05-08] MEDS: Midodrine HCl 10 MG TABLET PO ×3 (08:12→20:21)
[2024-05-08] MEDS: Sucralfate 1 GM TABLET PO ×4 (08:12→20:24)
[2024-05-08] MEDS: cephALEXin 500 MG CAPSULE PO ×4 (08:12→20:21)
[2024-05-08 08:34] LABS: Estimated Average Glucose 97 mg/dL; Hemoglobin A1C 106.0039 umol/L; Total Hemoglobin (HGBA1C) 3452.4873 umol/L
[2024-05-08] MEDS: Tiotropium Bromide 2.5 mcg 1 PUFF/2.5 MCG MIST.INHAL 2 PUFF INHALE (08:41)
[2024-05-08 08:47] LABS: Cholesterol 145 mg/dL (<200); HDL Cholesterol 41 mg/dL (>40); LDL Cholesterol Calculated 57 mg/dL (<100); Triglycerides 238 mg/dL (<150)
[2024-05-08] MEDS: Fluticasone Propionate Nasal 16 GM SPRAY 1 SPRAY NOSTRIL-B ×2 (08:50→20:25)
[2024-05-08] MEDS: Lidocaine 4 % Patch ADH..PATCH 1 PATCH TRANSDERMA (08:52)
[2024-05-08 09:02] LABS: Thyroid Stimulating Hormone 2.85 uIU/mL (0.32-4.0)
[2024-05-08 09:09] LABS: Vitamin B12 390 pg/mL (200-900)
--- NOTE | 2024-05-08 10:20 | P.HPPS_ITS ---
HPI Date of Service: 05/08/24 Chief Complaint: SI Sources of Information: patient interviewed, chart reviewed and crisis/core team assessment reviewed HPI Subjective Notes: Patel Warning, Conditional Voluntary and 3 Day Narrative: pt is a 39 yo female, with hx bipolar, anxiety/depression, PTSD, nonepileptic seizures,? VS Seizure disorder? (on Keppra),, asthma, GERD, migraines, orthostatic hypotension on midodrine, VIKAS on CPAP, hx TIAs with sequela of left lower extremity weakness...who presents for intentional overdose of Ambien in the face of homelessness and depression. Patient was overall doing okay until this past January 2024 when her [id number] . Not only has she been grieving the loss but she and her ended up homeless. Patient became depressed and eventually relapsed on crack cocaine in March. She was psychiatrically admitted for SI to [facility] during which time her Latuda was increased; she was discharged on the . Upon discharge however she returned to the same situation of homelessness and dealing with chronic physical ailments depression quickly returned and with it passive SI. This past week however, in a moment of despair, she became suicidal and impulsively, overdosed on Ambien; she quickly regretted it and called 911 within 20 minutes. Patient said she did not really want to citing her daughter as a protective factor, but just felt overwhelmed and acted out. Patient has been sober since discharge from [facility]. Patient seen 13:00 05/08/2024 Past Psychiatric History: Past psychiatric admissions Most recent past admission [facility] April 2024 (next most recent in [facility] October 2023) Medical Evaluation Reviewed: Yes [facility] Medical History (Updated 05/09/24 @ 09:24 by Janak Hinton MD) Cocaine use disorder Homeless PTSD (post-traumatic stress disorder) Bipolar disorder, unspecified Orthostatic hypotension VIKAS on CPAP Psychogenic nonepileptic seizure Asthma GERD (gastroesophageal reflux disease) Migraines Left leg weakness TIA (transient ischemic attack) Syphilis Family History: Deferred Social History: Patient She and her were living with her casonw-ld-tmu until her hnxrjm-uz-[id number] this January 2024; they are now homeless 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 taking her to court Substance History: Ongoing crack cocaine use Trauma History: Positive history for trauma Diagnostics Vital Signs (24Hr): Vital Signs - 24 hr 05/07/24 17:05 05/07/24 20:00 05/07/24 20:58 Temperature 98.4 F 98.3 F Pulse Rate 110 H 101 H Respiratory Rate 16 16 Blood Pressure 102/70 98/57 L 98/57 L Pulse Oximetry 97 98 Oxygen Delivery Method Room Air Room Air 05/08/24 07:54 Temperature 97.8 F Pulse Rate 92 Respiratory Rate 16 Blood Pressure 104/60 Pulse Oximetry 99 Oxygen Delivery Method Room Air BMI result Body Mass Index 27.8 Labs 05/07/24 18:28 Labs: Laboratory Results - last 48 hr 05/07/24 05/08/24 18:28 07:48 Sodium 141 Potassium 4.1 Chloride 112 H Carbon Dioxide 21 L Anion Gap 12 BUN 13 Creatinine 0.81 Estim Creat Clear Calc 80.7 Estimated GFR > 60 Random Glucose 93 Estimat Average Glucose 97 Hemoglobin A1c % 5.0 Calcium 9.5 Total Bilirubin 0.3 AST 20 ALT 24 Alkaline Phosphatase 73 Total Protein 7.5 Albumin 4.4 Triglycerides 238 H Cholesterol 145 LDL Cholesterol, Calc 57 HDL Cholesterol 41 Vitamin B12 390 TSH 2.85 Meds/Allergies Meds Home Medications ?Medication ?Instructions ?Recorded ?Confirmed ?Type albuterol sulfate 90 mcg/actuation 2 puff inhalation Q4-6H PRN 05/07/24 05/07/24 History aerosol inhaler shortness of breath amitriptyline 10 mg tablet 10 mg PO BEDTIME 05/07/24 05/07/24 History atorvastatin 40 mg tablet 40 mg PO BEDTIME 05/07/24 05/07/24 History cephalexin 500 mg capsule 500 mg PO QID 05/07/24 05/07/24 History cyanocobalamin (vitamin B-12) 1,000 mcg PO DAILY 05/07/24 05/07/24 History 1,000 mcg tablet cyclobenzaprine 10 mg tablet 10 mg PO TID 05/07/24 05/07/24 History docusate sodium 100 mg capsule 100 mg PO BID 05/07/24 05/07/24 History (Colace) fluticasone propionate 50 1 spray intranasal BID 05/07/24 05/07/24 History mcg/actuation nasal spray,suspension lactulose 10 gram/15 mL oral PO BID PRN Constipation 05/07/24 History solution (Enulose) levalbuterol tartrate 45 2 puff inhalation Q6H PRN wheezing 05/07/24 05/07/24 History mcg/actuation aerosol inhaler (Xopenex HFA) levetiracetam 500 mg tablet 500 mg PO BID 05/07/24 05/07/24 History lidocaine 4 % topical patch 1 patch topical DAILY 05/07/24 05/07/24 History (Lidocaine Pain Relief) lurasidone 60 mg tablet 60 mg PO DAILY@0800 05/07/24 05/07/24 History midodrine 10 mg tablet 10 mg PO TID 05/07/24 05/07/24 History nicotine (polacrilex) 4 mg gum 4 mg PO Q1-2H PRN Nicotine Cravings 05/07/24 05/07/24 History olanzapine 10 mg tablet 10 mg PO BEDTIME 05/07/24 05/07/24 History olanzapine 2.5 mg tablet 2.5 mg PO BID@0800,1400 05/07/24 05/07/24 History omeprazole 20 mg capsule,delayed 20 mg PO BID 05/07/24 05/07/24 History release sucralfate 1 gram tablet 1 g PO QIDACHS 05/07/24 05/07/24 History topiramate 100 mg tablet 100 mg PO TID 05/07/24 05/07/24 History umeclidinium 62.5 mcg/actuation 1 inh inhalation DAILY 05/07/24 05/07/24 History blister powder for inhalation (Incruse Ellipta) Allergies Allergies Allergy/AdvReac Type Severity Reaction Status Date / Time fluoxetine [From PROZAC] Allergy Severe ANAPHYLAXIS Unverified 10/25/19 16:31 spinach Allergy Severe THROAT Unverified 10/25/19 16:31 TIGHTNESS fish derived Allergy Intermediate SWELLING/DIFFICULTY Unverified 10/25/19 16:31 BREATHING peach [[place]] Allergy Intermediate SWELLING, Unverified 10/25/19 16:31 DIFFICULTY BREATHING azithromycin [From Zithromax] Allergy Mild FEELS Unverified 10/25/19 16:31 PARALYZED, RASH codeine [Codeine] Allergy Mild SHORTNESS Unverified 10/25/19 16:31 OF BREATH sertraline [From Zoloft] Allergy Mild SWELLING Unverified 10/25/19 16:31 IN THROAT ziprasidone [From Geodon] Allergy Mild HEART Unverified 10/25/19 16:31 FAILURE blueberry [Blueberry] Allergy Unknown RASH Unverified 10/25/19 16:31 broccoli Allergy Unknown RASH Unverified 10/25/19 16:31 cabbage Allergy Unknown RASH Unverified 10/25/19 16:31 citalopram [From CELEXA] Allergy Unknown HEART Unverified 10/25/19 16:31 DAMAGE coconut Allergy Unknown RASH Unverified 10/25/19 16:31 divalproex sodium Allergy Unknown RASH Unverified 10/25/19 16:31 [From DEPAKOTE] garlic Allergy Unknown RASH Unverified 10/25/19 16:31 haloperidol [From HALDOL] Allergy Unknown RASH Unverified 10/25/19 16:31 latex [LATEX] Allergy Unknown SWELLING Unverified 10/25/19 16:31 metronidazole [From FLAGYL] Allergy Unknown SHORTNESS Unverified 10/25/19 16:31 OF BREATH/RASH, blisters,rash onion [Onion] Allergy Unknown RASH Unverified 10/25/19 16:31 orange Allergy Unknown RASH Unverified 10/25/19 16:31 oxycodone [OXYCODONE] Allergy Unknown throat Unverified 10/25/19 16:31 closes procaine [PROCAINE] Allergy Unknown throat Unverified 10/25/19 16:31 closes risperidone [From RISPERDAL] Allergy Unknown SHORTNESS Unverified 10/25/19 16:31 OF BREATH silver Allergy Unknown BLISTERS/RA Unverified 10/25/19 16:31 [From TEGADERM AG MESH] SH strawberry [[place]] Allergy Unknown RASH Unverified 10/25/19 16:31 tomato [TOMATO] Allergy Unknown RASH Unverified 10/25/19 16:31 venlafaxine [From EFFEXOR] Allergy Unknown HEAVY BODY Unverified 10/25/19 16:31 gluten Allergy Unknown Verified 05/07/24 17:38 nut - unspecified Allergy Unknown Verified 05/07/24 17:38 doxycycline [DOXYCYCLINE] AdvReac Unknown DIARRHEA Unverified 10/25/19 16:31 From Novocain Allergy Severe DIFFICULTY Uncoded 10/25/19 16:31 BREATHING From Percocet Allergy Severe THROAT Uncoded 10/25/19 16:31 TIGHTNESS, DIFFICULTY BREATH Mental Status Exam Mental Status Exam Narrative: Pt is alert and oriented; behavior is cooperative,and calm; patient is not in distress; dressed in casual attire, unkempt, uses a walker; mood is described as depressed and affect congruent, downcast; eye contact appropriate; Speech is a little slowed and soft; some psychomotor retardation present; thought process is organized and goal directed; Thought content is on depression, grieving loss of relative; otherwise pertinent to relevant topics and without any delusional content, paranoid ideations or grandiosity; denies any SI/HI. Denies AVH and there is no evidence of perceptual disturbance. Patients insight and judgment impaired Assessment & Plan Assessment & Plan (1) Bipolar disorder, unspecified: Status: Acute Code(s): F31.9 - Bipolar disorder, unspecified (2) PTSD (post-traumatic stress disorder): Status: Acute Code(s): F43.10 - Post-traumatic stress disorder, unspecified (3) Cocaine use disorder: Status: Acute Code(s): F14.10 - Cocaine abuse, uncomplicated (4) Cranial nerve palsy: Status: Acute Code(s): G52.9 - Cranial nerve disorder, unspecified (5) TIA (transient ischemic attack): Status: Acute Code(s): G45.9 - Transient cerebral ischemic attack, unspecified (6) VIKAS on CPAP: Status: Acute Code(s): G47.33 - Obstructive sleep apnea (adult) (pediatric) (7) Orthostatic hypotension: Status: Acute Code(s): I95.1 - Orthostatic hypotension (8) Psychogenic nonepileptic seizure: Status: Acute Code(s): F44.5 - Conversion disorder with seizures or convulsions (9) Homeless: Status: Acute Code(s): Z59.00 - Homelessness unspecified Plan pt is a 39 yo female, with hx bipolar, anxiety/depression, PTSD, nonepileptic seizures,? VS Seizure disorder? (on Keppra), asthma, GERD, migraines, orthostatic hypotension on midodrine, VIKAS on CPAP, hx TIAs with sequela of left lower extremity weakness...who presents for intentional overdose of Ambien in the face of homelessness and depression. Patient was overall doing okay until this past January 2024 when her inisbe-zj-ezq . Not only has she been grieving the loss but she and her ended up homeless. Patient became depressed and eventually relapsed on crack cocaine in March. She was psychiatrically admitted for SI to [facility] during which time her Latuda was increased; she was discharged on the . Upon discharge however she returned to the same situation of homelessness and dealing with chronic physical ailments depression quickly returned and with it passive SI. This past week however, in a moment of despair, she became suicidal and impulsively, overdosed on Ambien; she quickly regretted it and called 911 within 20 minutes. Patient said she did not really want to citing her daughter as a protective factor, but just felt overwhelmed and acted out. Patient has been sober since discharge from [facility]. Formulation/clinical reasoning: History of bipolar depression with numerous psychosocial stressors. Patient reports she was doing better at last admission 2 weeks ago when her Latuda was increased however depression resumed when she returned to her current desperate situation. Seems that depression is situational so will not change medications at this time but defer to primary team. Patient says that trazodone is working so will not restart Ambien or melatonin -patient has recorded history of non about seizures however she is also on Keppra so not sure she has a seizure disorder also Plan: CV Q 15 minute checks Continue home medications Latuda recently increased to 60 mg trazodone works (will use instead of Ambien/melatonin) Patient educated on: diagnosis, medication risk/benefits, substance abuse and medical condition Informed Consent: understands Reason for continued inpatient stay Substantial Risk for: rapid decompensation Statement Statement: I have reviewed the history and physical and performed a pertinent examination on my patient. No changes have occurred unless specified. If the History and Physical was not performed prior to admission, the Hospitalist's service will be consulted for completing the admission physical. Time Spent With Patient Time: Total time managing care of this patient today ____ minutes.
[2024-05-08] MEDS: Nicotine Polacrilex 2 MG GUM 4 MG BUCCAL ×5 (10:34→19:08)
[2024-05-08] MEDS: Aspirin Enteric Coated 81 MG TABLET.DR PO ×2 (10:34→13:45)
--- NOTE | 2024-05-08 12:34 | HO.PM.IMCN ---
History of Present Illness Data of Consult Service Date: 05/08/24 Requesting physician: Mago Mcneal Primary Care Provider: Mary Jane Hernandez MD HPI Reason for consult: medical H&P 39-year-old female with history of unspecified asthma, GERD, migraines, orthostatic hypotension on midodrine, VIKAS on CPAP, PNS, PTSD, bipolar disorder who reports she has had a history of for TIAs with sequela of left lower extremity weakness admitted to adult Psychiatry with consult placed hospitalist service for medical H&P. The patient reportedly had been brought to [facility] ED after overdosing on 25 tablets of Ambien 5 mg. Poison control was contacted recommending observation and to check Tylenol, aspirin, chemistries, U tox, which were ordered. Hematology studies showed a chronic normocytic anemia with stable H/H of 11.3/35.3%. Renal function was trended and was within normal limits. Electrolyte levels essentially normal except for a bicarb of 19 which appears chronic. TSH 6.09, free T4 0.84. Ethyl alcohol level undetectable. Urine tox screen negative. Acetaminophen level undetectable. Salicylates level undetectable. She tells me she was at [facility] ED 5 days ago for symptoms of R sided facial droop and LUE paresthesias and was diagnosed with another TIA (records for CTA head/neck and MRI have been requested). She was not admitted to the hospital. She does follow with Dr. Yu in Neurology at [facility]. Last neuro exam, including CN was reported as normal. She is currently taking aspirin and Plavix. LDL measured today was 57. She currently denies any new neurological deficits. On review of [facility] records had syphilis testing on 04/11 with RPR titer 1:2 and reactive syphilis screen by CI and RPR non treponemal reflex. On review of charts since then, does not appear she has been treated. Discussed with patient who states she did have a positive syphilis infection in 2019 which was treated with penicillin injection per her report. She denies any unsafe sex in recent months. She is concerned about a small hole in her gluteal cleft. She does states she has a history of pilonidal cysts most recently drained at [facility] last month. She currently denies any pain, drainage. Review of Systems Review of Systems: General: No fevers, malaise, unintentional weight loss HEENT: No blurred vision, diplopia. No sore throat, nasal congestion, rhinorrhea, sinus pain, ear pain Cardiovascular: No chest pain, palpitations, or leg edema Respiratory: No shortness of breath, wheezing, cough GI: No abdominal pain, nausea, vomiting, diarrhea, constipation, melena, hematochezia : No dysuria, hematuria, increased urinary frequency, decreased urinary output. No vaginal discharge MSK: No myalgia, back pain Neuro: No headaches, weakness, paresthesias Skin: See HPI. No rashes or lesions [facility] Medical History (Updated 05/08/24 @ 15:35 by MICHAEL Choudhary) Orthostatic hypotension VIKAS on CPAP Psychogenic nonepileptic seizure Asthma GERD (gastroesophageal reflux disease) Migraines Left leg weakness TIA (transient ischemic attack) Syphilis Social History Household Members: Spouse Housing: Homeless Do you presently have visiting nurse or other home services: No Patient Tobacco Use Status: Current everyday Tobacco user Tobacco use type: Cigarette Smoked in Last 30 Days: Yes e-Cigarette/Vaping Use: Never Used Patient Interested in Nicotine Replacement: Yes (Gum and Lozenge) Patient Given Instructions on How to Stop Smoking: Yes Date Education Initiated: 05/07/24 Second Hand Smoke Exposure: Yes Use of substances other than those prescribed or required for medical reasons: No Currently Displaying Signs/Symptoms of Drug Intoxication Withdrawal: No Have you been hit, kicked, punched, or otherwise hurt by someone within the past year? If so, by whom?: No Do you feel safe in your current relationship?: Yes Is there a partner from a previous relationship who is making you feel unsafe now?: No Are you made to feel afraid or neglected: No Advance Directives: No Advance Directives Information Provided: Yes Recently lost weight without trying: Yes How much weight loss: 2-13 pounds Eating poorly because of decreased appetite: No Nutrition screen score: 3 Nutrition Risks: No Nutritional Risk Patient : No service: No Sexual orientation: Straight/Heterosexual Meds Allergies Allergy/AdvReac Type Severity Reaction Status Date / Time fluoxetine [From PROZAC] Allergy Severe ANAPHYLAXIS Unverified 10/25/19 16:31 spinach Allergy Severe THROAT Unverified 10/25/19 16:31 TIGHTNESS fish derived Allergy Intermediate SWELLING/DIFFICULTY Unverified 10/25/19 16:31 BREATHING peach [[place]] Allergy Intermediate SWELLING, Unverified 10/25/19 16:31 DIFFICULTY BREATHING azithromycin [From Zithromax] Allergy Mild FEELS Unverified 10/25/19 16:31 PARALYZED, RASH codeine [Codeine] Allergy Mild SHORTNESS Unverified 10/25/19 16:31 OF BREATH sertraline [From Zoloft] Allergy Mild SWELLING Unverified 10/25/19 16:31 IN THROAT ziprasidone [From Geodon] Allergy Mild HEART Unverified 10/25/19 16:31 FAILURE blueberry [Blueberry] Allergy Unknown RASH Unverified 10/25/19 16:31 broccoli Allergy Unknown RASH Unverified 10/25/19 16:31 cabbage Allergy Unknown RASH Unverified 10/25/19 16:31 citalopram [From CELEXA] Allergy Unknown HEART Unverified 10/25/19 16:31 DAMAGE coconut Allergy Unknown RASH Unverified 10/25/19 16:31 divalproex sodium Allergy Unknown RASH Unverified 10/25/19 16:31 [From DEPAKOTE] garlic Allergy Unknown RASH Unverified 10/25/19 16:31 haloperidol [From HALDOL] Allergy Unknown RASH Unverified 10/25/19 16:31 latex [LATEX] Allergy Unknown SWELLING Unverified 10/25/19 16:31 metronidazole [From FLAGYL] Allergy Unknown SHORTNESS Unverified 10/25/19 16:31 OF BREATH/RASH, blisters,rash onion [Onion] Allergy Unknown RASH Unverified 10/25/19 16:31 orange Allergy Unknown RASH Unverified 10/25/19 16:31 oxycodone [OXYCODONE] Allergy Unknown throat Unverified 10/25/19 16:31 closes procaine [PROCAINE] Allergy Unknown throat Unverified 10/25/19 16:31 closes risperidone [From RISPERDAL] Allergy Unknown SHORTNESS Unverified 10/25/19 16:31 OF BREATH silver Allergy Unknown BLISTERS/RA Unverified 10/25/19 16:31 [From TEGADERM AG MESH] SH strawberry [Talent] Allergy Unknown RASH Unverified 10/25/19 16:31 tomato [TOMATO] Allergy Unknown RASH Unverified 10/25/19 16:31 venlafaxine [From EFFEXOR] Allergy Unknown HEAVY BODY Unverified 10/25/19 16:31 gluten Allergy Unknown Verified 05/07/24 17:38 nut - unspecified Allergy Unknown Verified 05/07/24 17:38 doxycycline [DOXYCYCLINE] AdvReac Unknown DIARRHEA Unverified 10/25/19 16:31 From Novocain Allergy Severe DIFFICULTY Uncoded 10/25/19 16:31 BREATHING From Percocet Allergy Severe THROAT Uncoded 10/25/19 16:31 TIGHTNESS, DIFFICULTY BREATH Active Medications: Current Medications Acetaminophen (Acetaminophen 325 Mg Tablet) 650 mg PO Q6H PRN PRN Reason: Headache/Pain, Scale 1-10 Al Hydroxide/Mg Hydroxide (Magnesium Hydrox/Alum Hydrox 30 Ml Oral.Susp) 30 ml PO Q6H PRN PRN Reason: Heartburn/Nausea Albuterol Sulfate (Albuterol Sulfate 90 Mcg 8 Gm Inhaler) 2 puff INHALE Q4H PRN PRN Reason: shortness of breath Amitriptyline HCl (Amitriptyline Hcl 10 Mg Tablet) 10 mg PO BEDTIME [facility] Last Admin: 05/07/24 20:58 Dose: 10 mg Aspirin (Aspirin Enteric Coated 81 Mg Tablet.Dr) 81 mg PO DAILY [facility] Last Admin: 05/08/24 10:34 Dose: 81 mg Atorvastatin Calcium (Atorvastatin Calcium 40 Mg Tablet) 40 mg PO BEDTIME [facility] Last Admin: 05/07/24 20:44 Dose: 40 mg Cephalexin HCl (Cephalexin 500 Mg Capsule) 500 mg PO QID [facility] Stop: 05/17/24 20:59 Last Admin: 05/08/24 08:12 Dose: 500 mg Cyanocobalamin (Cyanocobalamin (Vitamin B-12) 1,000 Mcg Tablet) 1,000 mcg PO DAILY [facility] Last Admin: 05/08/24 08:12 Dose: 1,000 mcg Cyclobenzaprine HCl (Cyclobenzaprine Hcl 10 Mg Tablet) 10 mg PO TID [facility] Last Admin: 05/08/24 08:12 Dose: 10 mg Docusate Sodium (Docusate Sodium 100 Mg Capsule) 100 mg PO BID [facility] Last Admin: 05/08/24 08:11 Dose: 100 mg Fluticasone Propionate (Fluticasone Propionate Nasal 16 Gm Perry) 1 spray NOSTRIL-B BID [facility] Last Admin: 05/08/24 08:50 Dose: 1 spray Hydroxyzine HCl (Hydroxyzine Hcl 25 Mg Tablet) 25 mg PO Q6H PRN PRN Reason: mild anxiety Levetiracetam (Levetiracetam 500 Mg Tablet) 500 mg PO BID [facility] Last Admin: 05/08/24 08:12 Dose: 500 mg Lidocaine (Lidocaine 4 % Patch Adh..Patch) 1 patch TRANSDERMA DAILY [facility]; Protocol Last Admin: 05/08/24 08:52 Dose: 1 patch Lurasidone HCl (Lurasidone Hcl 20 Mg Tablet) 60 mg PO DAILY@0800 [facility] Last Admin: 05/08/24 08:11 Dose: 60 mg Magnesium Hydroxide (Milk Of Magnesia 30 Ml Oral.Susp) 30 ml PO DAILY PRN PRN Reason: Constipation Midodrine (Midodrine Hcl 10 Mg Tablet) 10 mg PO TID [facility] Last Admin: 05/08/24 08:12 Dose: 10 mg Nicotine (Nicotine 14 Mg Patch.Td24) 14 mg TRANSDERMA DAILY PRN PRN Reason: nicotine cravings Nicotine Polacrilex (Nicotine Polacrilex 2 Mg Gum) 4 mg BUCCAL Q1H PRN PRN Reason: Nicotine Cravings Last Admin: 05/08/24 10:34 Dose: 4 mg Olanzapine (Olanzapine 10 Mg Tablet) 10 mg PO BEDTIME [facility] Last Admin: 05/07/24 20:44 Dose: 10 mg Olanzapine (Olanzapine 2.5 Mg Tablet) 2.5 mg PO BID@0800,1400 [facility] Last Admin: 05/08/24 08:11 Dose: 2.5 mg Omeprazole (Omeprazole 20 Mg Capsule.Dr) 20 mg PO BID@0630,1630 [facility] Last Admin: 05/08/24 06:03 Dose: 20 mg Sucralfate (Sucralfate 1 Gm Tablet) 1 gm PO QIDACHS [facility] Last Admin: 05/08/24 11:33 Dose: 1 gm Tiotropium Martell (Tiotropium Martell 2.5 Mcg 1 Puff/2.5 Mcg Mist.Inhal) 2 puff INHALE RDAILY [facility] Last Admin: 05/08/24 08:41 Dose: 2 puff Topiramate (Topiramate 100 Mg Tablet) 100 mg PO TID [facility] Last Admin: 05/08/24 08:11 Dose: 100 mg Trazodone HCl (Trazodone Hcl 50 Mg Tablet) 50 mg PO BEDTIME MRX1 PRN PRN Reason: Insomnia Last Admin: 05/07/24 20:55 Dose: 50 mg Home Medications ?Medication ?Instructions ?Recorded ?Confirmed ?Last Taken ?Type albuterol sulfate 90 mcg/actuation 2 puff inhalation Q4-6H PRN 05/07/24 05/07/24 Unknown History aerosol inhaler shortness of breath amitriptyline 10 mg tablet 10 mg PO BEDTIME 05/07/24 05/07/24 Unknown History atorvastatin 40 mg tablet 40 mg PO BEDTIME 05/07/24 05/07/24 Unknown History cephalexin 500 mg capsule 500 mg PO QID 05/07/24 05/07/24 05/07/24 09:00 History cyanocobalamin (vitamin B-12) 1,000 mcg PO DAILY 05/07/24 05/07/24 Unknown History 1,000 mcg tablet cyclobenzaprine 10 mg tablet 10 mg PO TID 05/07/24 05/07/24 05/07/24 09:00 History docusate sodium 100 mg capsule 100 mg PO BID 05/07/24 05/07/24 05/07/24 09:00 History (Colace) fluticasone propionate 50 1 spray intranasal BID 05/07/24 05/07/24 Unknown History mcg/actuation nasal spray,suspension lactulose 10 gram/15 mL oral PO BID PRN Constipation 05/07/24 Unknown History solution (Enulose) levalbuterol tartrate 45 2 puff inhalation Q6H PRN wheezing 05/07/24 05/07/24 Unknown History mcg/actuation aerosol inhaler (Xopenex HFA) levetiracetam 500 mg tablet 500 mg PO BID 05/07/24 05/07/24 05/07/24 09:00 History lidocaine 4 % topical patch 1 patch topical DAILY 05/07/24 05/07/24 Unknown History (Lidocaine Pain Relief) lurasidone 60 mg tablet 60 mg PO DAILY@0800 05/07/24 05/07/24 05/07/24 09:00 History midodrine 10 mg tablet 10 mg PO TID 05/07/24 05/07/24 Unknown History nicotine (polacrilex) 4 mg gum 4 mg PO Q1-2H PRN Nicotine Cravings 05/07/24 05/07/24 Unknown History olanzapine 10 mg tablet 10 mg PO BEDTIME 05/07/24 05/07/24 Unknown History olanzapine 2.5 mg tablet 2.5 mg PO BID@0800,1400 05/07/24 05/07/24 05/07/24 09:00 History omeprazole 20 mg capsule,delayed 20 mg PO BID 05/07/24 05/07/24 05/07/24 09:00 History release sucralfate 1 gram tablet 1 g PO QIDACHS 05/07/24 05/07/24 05/07/24 09:00 History topiramate 100 mg tablet 100 mg PO TID 05/07/24 05/07/24 Unknown History umeclidinium 62.5 mcg/actuation 1 inh inhalation DAILY 05/07/24 05/07/24 Unknown History blister powder for inhalation (Incruse Ellipta) Physical Exam Vital Signs and Narrative: Vital Signs: Last Vital Signs Temp 97.8 F 05/08/24 07:54 Pulse 92 05/08/24 07:54 Resp 16 05/08/24 07:54 BP 104/60 05/08/24 07:54 Pulse Ox 99 05/08/24 07:54 O2 Del Method Room Air 05/08/24 07:54 BMI result Body Mass Index 27.8 Constitutional - Awake and Alert, No apparent distress Eyes - PERRLA, EOMI Cardiovascular - S1S2, RRR, No edema Respiratory - Normal lung expansion, Normal respiratory effort, No respiratory distress, CTA bilaterally Gastrointestinal - NT / ND; +BS; No rebound or guarding Extremities - no calf tenderness bilaterally, no swelling Musculoskeletal - Normal inspection, normal ROM Skin - Warm/Dry. Sinus tract gluteal cleft- no erythema, warmth, drainage Neurological - Alert & oriented x3, CN III- palsy, otherwise intact. 4/5 strength LLE, other RLE and BUE 5/5, sensation in tact Psychological - Appropriate affect Results Labs 05/07/24 18:28 Labs: Laboratory Results - last 24 hr 05/07/24 05/08/24 18:28 07:48 Anion Gap 12 Estim Creat Clear Calc 80.7 Estimated GFR > 60 Random Glucose 93 Estimat Average Glucose 97 Hemoglobin A1c % 5.0 Calcium 9.5 Total Bilirubin 0.3 AST 20 ALT 24 Alkaline Phosphatase 73 Total Protein 7.5 Albumin 4.4 Triglycerides 238 H Cholesterol 145 LDL Cholesterol, Calc 57 HDL Cholesterol 41 Vitamin B12 390 TSH 2.85 Assessment and Plan (1) Syphilis: Status: Acute (2) Cranial nerve palsy: Status: Acute (3) Routine medical exam: Status: Acute Plan 39-year-old female with history of unspecified asthma, GERD, migraines, orthostatic hypotension on midodrine, VIKAS on CPAP, PNS, PTSD, bipolar disorder who reports she has had a history of for TIAs with sequela of left lower extremity weakness admitted to adult Psychiatry with consult placed to hospitalist service for medical H&P. Bipolar disorder/Ambien overdose Plan per Psychiatry + syphilis- + RPR titer 1:2 [facility] 04/11 Per ID, RPR should be negative in most people after treatment (2019 per pt) Treat with 2.4 million PCN G ID consult Also check HIV per ID Recent TIAs intermittent paresthesias, weakness, slurred speech. Currently asymptomatic CTA head/neck and MRI brain have been requested from [facility] Follows with Dr. David Gamez at [facility] in neurology Cranial nerve III- palsy ?related to above Per most recent neurology note from 11/2023 CN exam wnl Neurology consult Imaging requested as above Pilonidal cyst Recently drained, sinus in gluteal cleft appears uninfected Unspecified asthma No exacerbation, albuterol p.r.n. Orthostatic hypotension Continue midodrine VIKAS CPAP bedtime PNES is on keppra, continue Will continue following
[2024-05-08 15:04] VITALS: BP 89/59
[2024-05-08] MEDS: Acetaminophen 325 MG TABLET 650 MG PO (15:56)
[2024-05-08] MEDS: Penicillin G Benzathine 2,400,000 UNIT/4 ML SYRINGE 2400000 UNIT IM (16:09)
[2024-05-08 20:00] VITALS: BP 91/58; PULSE 98; RESP 18; TEMP 36.4; O2SAT 98
[2024-05-08] MEDS: OLANZapine 10 MG TABLET PO (20:20)
[2024-05-08] MEDS: traZODone HCL 50 MG TABLET PO (20:20)
[2024-05-08 20:21] VITALS: BP 91/58
[2024-05-08] MEDS: Amitriptyline HCl 10 MG TABLET PO (20:23)
[2024-05-08] MEDS: Atorvastatin Calcium 40 MG TABLET PO (20:23)
[2024-05-09] MEDS: Sucralfate 1 GM TABLET PO ×4 (06:24→20:09)
[2024-05-09] MEDS: Omeprazole 20 MG CAPSULE.DR PO ×2 (06:24→16:16)
--- NOTE | 2024-05-09 06:25 | PC.NURSE ---
requesting carafate with AM jossie. given as requested.
[2024-05-09] MEDS: Nicotine Polacrilex 2 MG GUM 4 MG BUCCAL ×7 (06:44→19:02)
[2024-05-09 08:00] VITALS: BP 97/57; PULSE 92; RESP 17; TEMP 36.6; O2SAT 99
[2024-05-09 08:27] LABS: HIV AB/AG Nonreactive (Nonreactive); HIV Num 1 0.06 S/CO (0.00-0.99)
[2024-05-09] MEDS: Aspirin Enteric Coated 81 MG TABLET.DR 162 MG PO (08:44)
[2024-05-09] MEDS: Docusate Sodium 100 MG CAPSULE PO (08:44)
[2024-05-09] MEDS: Fluticasone Propionate Nasal 16 GM SPRAY 1 SPRAY NOSTRIL-B ×2 (08:44→20:08)
[2024-05-09] MEDS: Lurasidone HCl 20 MG TABLET 60 MG PO (08:44)
[2024-05-09] MEDS: Cyclobenzaprine HCl 10 MG TABLET PO ×3 (08:44→20:10)
[2024-05-09] MEDS: OLANZapine 2.5 MG TABLET PO ×2 (08:45→14:12)
[2024-05-09] MEDS: Topiramate 100 MG TABLET PO ×3 (08:45→20:09)
[2024-05-09] MEDS: Cyanocobalamin (Vitamin B-12) 1,000 MCG TABLET 1000 MCG PO (08:45)
[2024-05-09] MEDS: cephALEXin 500 MG CAPSULE PO ×4 (08:45→20:09)
[2024-05-09] MEDS: levETIRAcetam 500 MG TABLET PO ×2 (08:45→20:09)
[2024-05-09 08:48] VITALS: BP 87/57
[2024-05-09] MEDS: Midodrine HCl 10 MG TABLET PO ×3 (08:48→20:09)
[2024-05-09] MEDS: Tiotropium Bromide 2.5 mcg 1 PUFF/2.5 MCG MIST.INHAL 2 PUFF INHALE (08:49)
[2024-05-09] MEDS: Acetaminophen 325 MG TABLET 650 MG PO ×2 (09:00→15:23)
[2024-05-09] MEDS: Lidocaine 4 % Patch ADH..PATCH 1 PATCH TRANSDERMA (10:40)
[2024-05-09 15:06] VITALS: BP 105/70
--- NOTE | 2024-05-09 16:33 | HO.PSYCHPN ---
Subjective Subjective Date of Service: 05/09/24 Reason For Visit: SI Interim History: calm, cooperative, pleasant. reports she increased latuda to 60 mg daily a few weeks ago, for depression. asking to increase to 80 mg daily now, which is agreed to. sleeping well on trazodone. per staff, slept 8 hours. CPAP. wound care for gluteal cleft wound. anx 6, no depression. +groups. + meds. syphilis noted 04/11, got IM here for it yesterday. Mental Status Exam Mental Status Exam Narrative: Pt is alert and oriented; behavior is cooperative,and calm; patient is not in distress; dressed in casual attire, uses a walker; mood is described as so-so and affect congruent, downcast; eye contact appropriate; Speech is a little slowed and soft; some psychomotor retardation present; thought process is organized and goal directed; Thought content is on Tx; otherwise pertinent to relevant topics and without any delusional content, paranoid ideations or grandiosity; denies SI/HI/AVH. Patients insight and judgment impaired Diagnostics Vital Signs (24Hr): Vital Signs - 24 hr 05/08/24 20:00 05/08/24 20:21 05/09/24 08:00 Temperature 97.5 F 98 F Pulse Rate 98 92 Respiratory Rate 18 17 Blood Pressure 91/58 L 91/58 L 97/57 L Pulse Oximetry 98 99 Oxygen Delivery Method Room Air Room Air 05/09/24 08:48 05/09/24 15:06 Temperature Pulse Rate Respiratory Rate Blood Pressure 87/57 L 105/70 Pulse Oximetry Oxygen Delivery Method BMI result Body Mass Index 27.8 Labs 05/07/24 18:28 Labs: Laboratory Results - last 48 hr 05/07/24 05/08/24 05/08/24 18:28 07:48 16:02 Sodium 141 Potassium 4.1 Chloride 112 H Carbon Dioxide 21 L Anion Gap 12 BUN 13 Creatinine 0.81 Estim Creat Clear Calc 80.7 Estimated GFR > 60 Random Glucose 93 Estimat Average Glucose 97 Hemoglobin A1c % 5.0 Calcium 9.5 Total Bilirubin 0.3 AST 20 ALT 24 Alkaline Phosphatase 73 Total Protein 7.5 Albumin 4.4 Triglycerides 238 H Cholesterol 145 LDL Cholesterol, Calc 57 HDL Cholesterol 41 Vitamin B12 390 TSH 2.85 HIV 1&2 Ab/P24 Ag 4thGn Nonreactive Medications Medications Current Medications Acetaminophen (Acetaminophen 325 Mg Tablet) 650 mg PO Q6H PRN PRN Reason: Headache/Pain, Scale 1-10 Last Admin: 05/09/24 15:23 Dose: 650 mg Al Hydroxide/Mg Hydroxide (Magnesium Hydrox/Alum Hydrox 30 Ml Oral.Susp) 30 ml PO Q6H PRN PRN Reason: Heartburn/Nausea Albuterol Sulfate (Albuterol Sulfate 90 Mcg 8 Gm Inhaler) 2 puff INHALE Q4H PRN PRN Reason: shortness of breath Amitriptyline HCl (Amitriptyline Hcl 10 Mg Tablet) 10 mg PO BEDTIME [facility] Last Admin: 05/08/24 20:23 Dose: 10 mg Aspirin (Aspirin Enteric Coated 81 Mg Tablet.Dr) 162 mg PO DAILY [facility] Last Admin: 05/09/24 08:44 Dose: 162 mg Atorvastatin Calcium (Atorvastatin Calcium 40 Mg Tablet) 40 mg PO BEDTIME [facility] Last Admin: 05/08/24 20:23 Dose: 40 mg Cephalexin HCl (Cephalexin 500 Mg Capsule) 500 mg PO QID [facility] Stop: 05/17/24 20:59 Last Admin: 05/09/24 12:52 Dose: 500 mg Cyanocobalamin (Cyanocobalamin (Vitamin B-12) 1,000 Mcg Tablet) 1,000 mcg PO DAILY [facility] Last Admin: 05/09/24 08:45 Dose: 1,000 mcg Cyclobenzaprine HCl (Cyclobenzaprine Hcl 10 Mg Tablet) 10 mg PO TID [facility] Last Admin: 05/09/24 15:07 Dose: 10 mg Docusate Sodium (Docusate Sodium 100 Mg Capsule) 100 mg PO BID [facility] Last Admin: 05/09/24 08:44 Dose: 100 mg Fluticasone Propionate (Fluticasone Propionate Nasal 16 Gm [place]) 1 spray NOSTRIL-B BID [facility] Last Admin: 05/09/24 08:44 Dose: 1 spray Hydroxyzine HCl (Hydroxyzine Hcl 25 Mg Tablet) 25 mg PO Q6H PRN PRN Reason: mild anxiety Levetiracetam (Levetiracetam 500 Mg Tablet) 500 mg PO BID [facility] Last Admin: 05/09/24 08:45 Dose: 500 mg Lidocaine (Lidocaine 4 % Patch Adh..Patch) 1 patch TRANSDERMA DAILY [facility]; Protocol Last Admin: 05/09/24 10:40 Dose: 1 patch Lurasidone HCl (Lurasidone Hcl 80 Mg Tablet) 80 mg PO DAILY@0800 [facility] Magnesium Hydroxide (Milk Of Magnesia 30 Ml Oral.Susp) 30 ml PO DAILY PRN PRN Reason: Constipation Midodrine (Midodrine Hcl 10 Mg Tablet) 10 mg PO TID [facility] Last Admin: 05/09/24 15:06 Dose: 10 mg Nicotine (Nicotine 14 Mg Patch.Td24) 14 mg TRANSDERMA DAILY PRN PRN Reason: smoking cessation Nicotine Polacrilex (Nicotine Polacrilex 2 Mg Gum) 4 mg BUCCAL Q1H PRN PRN Reason: Nicotine Cravings Last Admin: 05/09/24 15:07 Dose: 4 mg Olanzapine (Olanzapine 10 Mg Tablet) 10 mg PO BEDTIME [facility] Last Admin: 05/08/24 20:20 Dose: 10 mg Olanzapine (Olanzapine 2.5 Mg Tablet) 2.5 mg PO BID@0800,1400 [facility] Last Admin: 05/09/24 14:12 Dose: 2.5 mg Omeprazole (Omeprazole 20 Mg Capsule.Dr) 20 mg PO BID@0630,1630 [facility] Last Admin: 05/09/24 16:16 Dose: 20 mg Sucralfate (Sucralfate 1 Gm Tablet) 1 gm PO QIDACHS [facility] Last Admin: 05/09/24 16:16 Dose: 1 gm Tiotropium [place] (Tiotropium [place] 2.5 Mcg 1 Puff/2.5 Mcg Mist.Inhal) 2 puff INHALE RDAILY [facility] Last Admin: 05/09/24 08:49 Dose: 2 puff Topiramate (Topiramate 100 Mg Tablet) 100 mg PO TID [facility] Last Admin: 05/09/24 15:07 Dose: 100 mg Trazodone HCl (Trazodone Hcl 50 Mg Tablet) 50 mg PO BEDTIME MRX1 PRN PRN Reason: Insomnia Last Admin: 05/07/24 20:55 Dose: 50 mg Trazodone HCl (Trazodone Hcl 50 Mg Tablet) 50 mg PO BEDTIME [facility] Last Admin: 05/08/24 20:20 Dose: 50 mg Allergies Allergies Allergy/AdvReac Type Severity Reaction Status Date / Time fluoxetine [From PROZAC] Allergy Severe ANAPHYLAXIS Unverified 10/25/19 16:31 spinach Allergy Severe THROAT Unverified 10/25/19 16:31 TIGHTNESS fish derived Allergy Intermediate SWELLING/DIFFICULTY Unverified 10/25/19 16:31 BREATHING peach [[place]] Allergy Intermediate SWELLING, Unverified 10/25/19 16:31 DIFFICULTY BREATHING azithromycin [From Zithromax] Allergy Mild FEELS Unverified 10/25/19 16:31 PARALYZED, RASH codeine [Codeine] Allergy Mild SHORTNESS Unverified 10/25/19 16:31 OF BREATH sertraline [From Zoloft] Allergy Mild SWELLING Unverified 10/25/19 16:31 IN THROAT ziprasidone [From Geodon] Allergy Mild HEART Unverified 10/25/19 16:31 FAILURE blueberry [Blueberry] Allergy Unknown RASH Unverified 10/25/19 16:31 broccoli Allergy Unknown RASH Unverified 10/25/19 16:31 cabbage Allergy Unknown RASH Unverified 10/25/19 16:31 citalopram [From CELEXA] Allergy Unknown HEART Unverified 10/25/19 16:31 DAMAGE coconut Allergy Unknown RASH Unverified 10/25/19 16:31 divalproex sodium Allergy Unknown RASH Unverified 10/25/19 16:31 [From DEPAKOTE] garlic Allergy Unknown RASH Unverified 10/25/19 16:31 haloperidol [From HALDOL] Allergy Unknown RASH Unverified 10/25/19 16:31 latex [LATEX] Allergy Unknown SWELLING Unverified 10/25/19 16:31 metronidazole [From FLAGYL] Allergy Unknown SHORTNESS Unverified 10/25/19 16:31 OF BREATH/RASH, blisters,rash onion [Onion] Allergy Unknown RASH Unverified 10/25/19 16:31 orange Allergy Unknown RASH Unverified 10/25/19 16:31 oxycodone [OXYCODONE] Allergy Unknown throat Unverified 10/25/19 16:31 closes procaine [PROCAINE] Allergy Unknown throat Unverified 10/25/19 16:31 closes risperidone [From RISPERDAL] Allergy Unknown SHORTNESS Unverified 10/25/19 16:31 OF BREATH silver Allergy Unknown BLISTERS/RA Unverified 10/25/19 16:31 [From TEGADERM AG MESH] SH strawberry [[place]] Allergy Unknown RASH Unverified 10/25/19 16:31 tomato [TOMATO] Allergy Unknown RASH Unverified 10/25/19 16:31 venlafaxine [From EFFEXOR] Allergy Unknown HEAVY BODY Unverified 10/25/19 16:31 gluten Allergy Unknown Verified 05/07/24 17:38 nut - unspecified Allergy Unknown Verified 05/07/24 17:38 doxycycline [DOXYCYCLINE] AdvReac Unknown DIARRHEA Unverified 10/25/19 16:31 From Novocain Allergy Severe DIFFICULTY Uncoded 10/25/19 16:31 BREATHING From Percocet Allergy Severe THROAT Uncoded 10/25/19 16:31 TIGHTNESS, DIFFICULTY BREATH Assessment & Plan Assessment & Plan (1) Bipolar disorder, unspecified: Status: Acute Code(s): F31.9 - Bipolar disorder, unspecified (2) PTSD (post-traumatic stress disorder): Status: Acute Code(s): F43.10 - Post-traumatic stress disorder, unspecified (3) Cocaine use disorder: Status: Acute Code(s): F14.10 - Cocaine abuse, uncomplicated (4) Cranial nerve palsy: Status: Acute Code(s): G52.9 - Cranial nerve disorder, unspecified (5) TIA (transient ischemic attack): Status: Acute Code(s): G45.9 - Transient cerebral ischemic attack, unspecified (6) VIKAS on CPAP: Status: Acute Code(s): G47.33 - Obstructive sleep apnea (adult) (pediatric) (7) Orthostatic hypotension: Status: Acute Code(s): I95.1 - Orthostatic hypotension (8) Psychogenic nonepileptic seizure: Status: Acute Code(s): F44.5 - Conversion disorder with seizures or convulsions (9) Homeless: Status: Acute Code(s): Z59.00 - Homelessness unspecified Plan pt is a 39 yo female, with hx bipolar, anxiety/depression, PTSD, nonepileptic seizures,? VS Seizure disorder? (on Keppra), asthma, GERD, migraines, orthostatic hypotension on midodrine, VIKAS on CPAP, hx TIAs with sequela of left lower extremity weakness...who presents for intentional overdose of Ambien in the face of homelessness and depression. Patient was overall doing okay until this past January 2024 when her [id number] . Not only has she been grieving the loss but she and her ended up homeless. Patient became depressed and eventually relapsed on crack cocaine in March. She was psychiatrically admitted for SI to [facility] during which time her Latuda was increased; she was discharged on the . Upon discharge however she returned to the same situation of homelessness and dealing with chronic physical ailments depression quickly returned and with it passive SI. This past week however, in a moment of despair, she became suicidal and impulsively, overdosed on Ambien; she quickly regretted it and called 911 within 20 minutes. Patient said she did not really want to citing her daughter as a protective factor, but just felt overwhelmed and acted out. Patient has been sober since discharge from [facility]. Formulation/clinical reasoning: History of bipolar depression with numerous psychosocial stressors. Patient reports she was doing better at last admission 2 weeks ago when her Latuda was increased however depression resumed when she returned to her current desperate situation. Seems that depression is situational so will not change medications at this time but defer to primary team. Patient says that trazodone is working so will not restart Ambien or melatonin -patient has recorded history of non about seizures however she is also on Keppra so not sure she has a seizure disorder also Plan: CV Q 15 minute checks Continue home medications Latuda recently increased to 60 mg trazodone works (will use instead of Ambien/melatonin) 05/09: increase latuda to 80 mg daily for depression, otherwise continue current mgmt. mood so-so today, up from depressed. Reason for continued inpatient stay Substantial Risk for: harm to self and inability to function Time Spent With Patient Time: Total time managing care of this patient today __25__ minutes.
--- NOTE | 2024-05-09 17:39 | P.CNNE_ITS ---
History of Present Illness Data of Consult Service Date: 05/09/24 Primary Care Provider: Mary Jane Hernandez MD HPI This is a 39-year-old female with history of asthma, GERD, migraines, orthostatic hypotension on midodrine, VIKAS on CPAP, PNS, PTSD, bipolar disorder who reports she has had a history of TIAs with sequela of left lower extremity weakness admitted to adult Psychiatry. The patient reportedly had been brought to [facility] ED after overdosing on 25 tablets of Ambien 5 mg. Electrolyte levels essentially normal except for a bicarb of 19 which appears chronic. TSH 6.09, free T4 0.84. Ethyl alcohol level undetectable. Urine tox screen negative. Acetaminophen level undetectable. Salicylates level undetectable. She claims she was at [facility] ED 5 days ago for symptoms of R sided facial droop and LUE paresthesias and was diagnosed with another TIA (records for CTA head/neck and MRI have been requested). She was not admitted to the hospital. She does follow with Dr. Yu in Neurology at [facility]. Last neuro exam, including CN was reported as normal. She is currently taking aspirin and Plavix. LDL measured today was 57. She currently denies any new neurological deficits. On review of [facility] records had syphilis testing on 04/11 with RPR titer 1:2 and reactive syphilis screen by CI and RPR non treponemal reflex. On review of charts since then, does not appear she has been treated. [facility] Past Medical History Medical History (Updated 05/09/24 @ 09:24 by aJnak Hinton MD) Cocaine use disorder Homeless PTSD (post-traumatic stress disorder) Bipolar disorder, unspecified Orthostatic hypotension VIKAS on CPAP Psychogenic nonepileptic seizure Asthma GERD (gastroesophageal reflux disease) Migraines Left leg weakness TIA (transient ischemic attack) Syphilis Social History Social History Household Members: Spouse Housing: Homeless Do you presently have visiting nurse or other home services: No Comment: 5's Patient Tobacco Use Status: Current everyday Tobacco user Tobacco use type: Cigarette Smoked in Last 30 Days: Yes e-Cigarette/Vaping Use: Never Used Patient Interested in Nicotine Replacement: Yes (Gum and Lozenge) Patient Given Instructions on How to Stop Smoking: Yes Date Education Initiated: 05/07/24 Second Hand Smoke Exposure: Yes Use of substances other than those prescribed or required for medical reasons: No Currently Displaying Signs/Symptoms of Drug Intoxication Withdrawal: No Have you been hit, kicked, punched, or otherwise hurt by someone within the past year? If so, by whom?: No Do you feel safe in your current relationship?: Yes Is there a partner from a previous relationship who is making you feel unsafe now?: No Are you made to feel afraid or neglected: No Advance Directives: No Advance Directives Information Provided: Yes Do you have thoughts of harming others: None Do you have a plan to hurt others: No Plan Recently lost weight without trying: Yes How much weight loss: 2-13 pounds Eating poorly because of decreased appetite: No Nutrition screen score: 3 Nutrition Risks: No Nutritional Risk Patient : No service: No Sexual orientation: Straight/Heterosexual Meds Allergies Allergy/AdvReac Type Severity Reaction Status Date / Time fluoxetine [From PROZAC] Allergy Severe ANAPHYLAXIS Unverified 10/25/19 16:31 spinach Allergy Severe THROAT Unverified 10/25/19 16:31 TIGHTNESS fish derived Allergy Intermediate SWELLING/DIFFICULTY Unverified 10/25/19 16:31 BREATHING peach [[place]] Allergy Intermediate SWELLING, Unverified 10/25/19 16:31 DIFFICULTY BREATHING azithromycin [From Zithromax] Allergy Mild FEELS Unverified 10/25/19 16:31 PARALYZED, RASH codeine [Codeine] Allergy Mild SHORTNESS Unverified 10/25/19 16:31 OF BREATH sertraline [From Zoloft] Allergy Mild SWELLING Unverified 10/25/19 16:31 IN THROAT ziprasidone [From Geodon] Allergy Mild HEART Unverified 10/25/19 16:31 FAILURE blueberry [Blueberry] Allergy Unknown RASH Unverified 10/25/19 16:31 broccoli Allergy Unknown RASH Unverified 10/25/19 16:31 cabbage Allergy Unknown RASH Unverified 10/25/19 16:31 citalopram [From CELEXA] Allergy Unknown HEART Unverified 10/25/19 16:31 DAMAGE coconut Allergy Unknown RASH Unverified 10/25/19 16:31 divalproex sodium Allergy Unknown RASH Unverified 10/25/19 16:31 [From DEPAKOTE] garlic Allergy Unknown RASH Unverified 10/25/19 16:31 haloperidol [From HALDOL] Allergy Unknown RASH Unverified 10/25/19 16:31 latex [LATEX] Allergy Unknown SWELLING Unverified 10/25/19 16:31 metronidazole [From FLAGYL] Allergy Unknown SHORTNESS Unverified 10/25/19 16:31 OF BREATH/RASH, blisters,rash onion [Onion] Allergy Unknown RASH Unverified 10/25/19 16:31 orange Allergy Unknown RASH Unverified 10/25/19 16:31 oxycodone [OXYCODONE] Allergy Unknown throat Unverified 10/25/19 16:31 closes procaine [PROCAINE] Allergy Unknown throat Unverified 10/25/19 16:31 closes risperidone [From RISPERDAL] Allergy Unknown SHORTNESS Unverified 10/25/19 16:31 OF BREATH silver Allergy Unknown BLISTERS/RA Unverified 10/25/19 16:31 [From TEGADERM AG MESH] SH strawberry [[place]] Allergy Unknown RASH Unverified 10/25/19 16:31 tomato [TOMATO] Allergy Unknown RASH Unverified 10/25/19 16:31 venlafaxine [From EFFEXOR] Allergy Unknown HEAVY BODY Unverified 10/25/19 16:31 gluten Allergy Unknown Verified 05/07/24 17:38 nut - unspecified Allergy Unknown Verified 05/07/24 17:38 doxycycline [DOXYCYCLINE] AdvReac Unknown DIARRHEA Unverified 10/25/19 16:31 From Novocain Allergy Severe DIFFICULTY Uncoded 10/25/19 16:31 BREATHING From Percocet Allergy Severe THROAT Uncoded 10/25/19 16:31 TIGHTNESS, DIFFICULTY BREATH Active Medications: Current Medications Acetaminophen (Acetaminophen 325 Mg Tablet) 650 mg PO Q6H PRN PRN Reason: Headache/Pain, Scale 1-10 Last Admin: 05/09/24 15:23 Dose: 650 mg Al Hydroxide/Mg Hydroxide (Magnesium Hydrox/Alum Hydrox 30 Ml Oral.Susp) 30 ml PO Q6H PRN PRN Reason: Heartburn/Nausea Albuterol Sulfate (Albuterol Sulfate 90 Mcg 8 Gm Inhaler) 2 puff INHALE Q4H PRN PRN Reason: shortness of breath Amitriptyline HCl (Amitriptyline Hcl 10 Mg Tablet) 10 mg PO BEDTIME [facility] Last Admin: 05/08/24 20:23 Dose: 10 mg Aspirin (Aspirin Enteric Coated 81 Mg Tablet.) 162 mg PO DAILY [facility] Last Admin: 05/09/24 08:44 Dose: 162 mg Atorvastatin Calcium (Atorvastatin Calcium 40 Mg Tablet) 40 mg PO BEDTIME [facility] Last Admin: 05/08/24 20:23 Dose: 40 mg Cephalexin HCl (Cephalexin 500 Mg Capsule) 500 mg PO QID [facility] Stop: 05/17/24 20:59 Last Admin: 05/09/24 16:55 Dose: 500 mg Cyanocobalamin (Cyanocobalamin (Vitamin B-12) 1,000 Mcg Tablet) 1,000 mcg PO DAILY [facility] Last Admin: 05/09/24 08:45 Dose: 1,000 mcg Cyclobenzaprine HCl (Cyclobenzaprine Hcl 10 Mg Tablet) 10 mg PO TID [facility] Last Admin: 05/09/24 15:07 Dose: 10 mg Docusate Sodium (Docusate Sodium 100 Mg Capsule) 100 mg PO BID [facility] Last Admin: 05/09/24 08:44 Dose: 100 mg Fluticasone Propionate (Fluticasone Propionate Nasal 16 Gm [place]) 1 spray NOSTRIL-B BID [facility] Last Admin: 05/09/24 08:44 Dose: 1 spray Hydroxyzine HCl (Hydroxyzine Hcl 25 Mg Tablet) 25 mg PO Q6H PRN PRN Reason: mild anxiety Levetiracetam (Levetiracetam 500 Mg Tablet) 500 mg PO BID [facility] Last Admin: 05/09/24 08:45 Dose: 500 mg Lidocaine (Lidocaine 4 % Patch Adh..Patch) 1 patch TRANSDERMA DAILY [facility]; Protocol Last Admin: 05/09/24 10:40 Dose: 1 patch Lurasidone HCl (Lurasidone Hcl 80 Mg Tablet) 80 mg PO DAILY@0800 [facility] Magnesium Hydroxide (Milk Of Magnesia 30 Ml Oral.Susp) 30 ml PO DAILY PRN PRN Reason: Constipation Midodrine (Midodrine Hcl 10 Mg Tablet) 10 mg PO TID [facility] Last Admin: 05/09/24 15:06 Dose: 10 mg Nicotine (Nicotine 14 Mg Patch.Td24) 14 mg TRANSDERMA DAILY PRN PRN Reason: smoking cessation Nicotine Polacrilex (Nicotine Polacrilex 2 Mg Gum) 4 mg BUCCAL Q1H PRN PRN Reason: Nicotine Cravings Last Admin: 05/09/24 17:24 Dose: 4 mg Olanzapine (Olanzapine 10 Mg Tablet) 10 mg PO BEDTIME [facility] Last Admin: 05/08/24 20:20 Dose: 10 mg Olanzapine (Olanzapine 2.5 Mg Tablet) 2.5 mg PO BID@0800,1400 [facility] Last Admin: 05/09/24 14:12 Dose: 2.5 mg Omeprazole (Omeprazole 20 Mg Capsule.Dr) 20 mg PO BID@0630,1630 [facility] Last Admin: 05/09/24 16:16 Dose: 20 mg Sucralfate (Sucralfate 1 Gm Tablet) 1 gm PO QIDACHS [facility] Last Admin: 05/09/24 16:16 Dose: 1 gm Tiotropium [place] (Tiotropium [place] 2.5 Mcg 1 Puff/2.5 Mcg Mist.Inhal) 2 puff INHALE RDAILY [facility] Last Admin: 05/09/24 08:49 Dose: 2 puff Topiramate (Topiramate 100 Mg Tablet) 100 mg PO TID [facility] Last Admin: 05/09/24 15:07 Dose: 100 mg Trazodone HCl (Trazodone Hcl 50 Mg Tablet) 50 mg PO BEDTIME MRX1 PRN PRN Reason: Insomnia Last Admin: 05/07/24 20:55 Dose: 50 mg Trazodone HCl (Trazodone Hcl 50 Mg Tablet) 50 mg PO BEDTIME [facility] Last Admin: 05/08/24 20:20 Dose: 50 mg Home Medications ?Medication ?Instructions ?Recorded ?Confirmed ?Last Taken ?Type albuterol sulfate 90 mcg/actuation 2 puff inhalation Q4-6H PRN 05/07/24 05/07/24 Unknown History aerosol inhaler shortness of breath amitriptyline 10 mg tablet 10 mg PO BEDTIME 05/07/24 05/07/24 Unknown History atorvastatin 40 mg tablet 40 mg PO BEDTIME 05/07/24 05/07/24 Unknown History cephalexin 500 mg capsule 500 mg PO QID 05/07/24 05/07/24 05/07/24 09:00 History cyanocobalamin (vitamin B-12) 1,000 mcg PO DAILY 05/07/24 05/07/24 Unknown History 1,000 mcg tablet cyclobenzaprine 10 mg tablet 10 mg PO TID 05/07/24 05/07/24 05/07/24 09:00 History docusate sodium 100 mg capsule 100 mg PO BID 05/07/24 05/07/24 05/07/24 09:00 History (Colace) fluticasone propionate 50 1 spray intranasal BID 05/07/24 05/07/24 Unknown History mcg/actuation nasal spray,suspension lactulose 10 gram/15 mL oral PO BID PRN Constipation 05/07/24 Unknown History solution (Enulose) levalbuterol tartrate 45 2 puff inhalation Q6H PRN wheezing 05/07/24 05/07/24 Unknown History mcg/actuation aerosol inhaler (Xopenex HFA) levetiracetam 500 mg tablet 500 mg PO BID 05/07/24 05/07/24 05/07/24 09:00 History lidocaine 4 % topical patch 1 patch topical DAILY 05/07/24 05/07/24 Unknown History (Lidocaine Pain Relief) lurasidone 60 mg tablet 60 mg PO DAILY@0800 05/07/24 05/07/24 05/07/24 09:00 History midodrine 10 mg tablet 10 mg PO TID 05/07/24 05/07/24 Unknown History nicotine (polacrilex) 4 mg gum 4 mg PO Q1-2H PRN Nicotine Cravings 05/07/24 05/07/24 Unknown History olanzapine 10 mg tablet 10 mg PO BEDTIME 05/07/24 05/07/24 Unknown History olanzapine 2.5 mg tablet 2.5 mg PO BID@0800,1400 05/07/24 05/07/24 05/07/24 09:00 History omeprazole 20 mg capsule,delayed 20 mg PO BID 05/07/24 05/07/24 05/07/24 09:00 History release sucralfate 1 gram tablet 1 g PO QIDACHS 05/07/24 05/07/24 05/07/24 09:00 History topiramate 100 mg tablet 100 mg PO TID 05/07/24 05/07/24 Unknown History umeclidinium 62.5 mcg/actuation 1 inh inhalation DAILY 05/07/24 05/07/24 Unknown History blister powder for inhalation (Incruse Ellipta) Physical Exam 2 Vital Signs: Vital Signs: Last Vital Signs Temp 98 F 05/09/24 08:00 Pulse 92 05/09/24 08:00 Resp 17 05/09/24 08:00 BP 105/70 05/09/24 15:06 Pulse Ox 99 05/09/24 08:00 O2 Del Method Room Air 05/09/24 08:00 BMI result Body Mass Index 27.8 Neuro: Other: Non focal exam Results Labs 05/07/24 18:28 Assessment and Plan (1) Cranial nerve palsy: Status: Acute No clear evidence of cranial nerve palsy Recom.: MRI brain. If negative do an LP for any evidence of [employer] syphillis Procedures Date of Service Date of Service: 05/09/24
--- NOTE | 2024-05-09 17:46 | HO.WOUND ---
Wound Consult: Initial 39yr old?female admitted [place] [facility] [place]07[place]24 - See progress notes and H&P for detailed history.? Wound consult placed for Coccyx area secondary to Pilonidal Cyst removal recently.? Patient agreeable to assessment and photo documentation.? Patient reports the cyst was removed at [facility] ED and had recent follow up for secondary drainage due to fluid filed area approximately 2 weeks ago. Coccyx Etiology: ?Site of Pilonidal Cyst removal ? Measurements:0.3cm x 0.3cm x 1cm Wound Bed: clean red wound bed Drainage / Odor: None Edges: ? well defined Tere wound: intact hyperpigmentation and scar tissue and old sites noted ? No Induration, Fluctuance or Warmth noted Pain: denies Goals of Treatment: ? Light packing with Durafiber to fill space and allow for decreased healing time. Recommendations: Provide adequate and supplemental nutrition.? Coccyx - Cleanse with NS moist gauze or soap and water when showering. Apply skin prep, lightly pack wound bed with durafiber AG, followed by secondary dressing or foam dressing. Change every other day and PRN when wet. Re-consult wound care Nurse for wound deterioration or wound changes.
[2024-05-09] MEDS: Simethicone 80 MG TAB.CHEW PO (19:00)
[2024-05-09 19:35] VITALS: BP 103/62; PULSE 97; RESP 16; TEMP 36.6; O2SAT 97
[2024-05-09] MEDS: Atorvastatin Calcium 40 MG TABLET PO (20:08)
[2024-05-09] MEDS: traZODone HCL 50 MG TABLET PO (20:08)
[2024-05-09] MEDS: Amitriptyline HCl 10 MG TABLET PO (20:09)
[2024-05-09] MEDS: OLANZapine 10 MG TABLET PO (20:09)
--- NOTE | 2024-05-09 23:32 | P.CNID_ITS ---
History of Present Illness Data of Consult Service Date: 05/09/24 Requesting physician: Deo Gamez Primary Care Provider: Mary Jane Hernandez MD HPI Reason for consult: positive syphilis titer 1:2 on 04/11 She presents with intentional ingestion of 25 pills of 5 mg Ambien. She was found to have syphilis titer of 1:2. She was not treated. She reports treated with IM Penicillin ?number of doses in 2019 for syphilis. She is HIV negative. She has a gluteal cleft abrasion that doesnt look particularly like chancre. Review of Systems 2 Review of Systems: Yes all other systems are reviewed and are negative [facility] Past Medical History Medical History Cocaine use disorder Homeless PTSD (post-traumatic stress disorder) Bipolar disorder, unspecified Orthostatic hypotension VIKAS on CPAP Psychogenic nonepileptic seizure Asthma GERD (gastroesophageal reflux disease) Migraines Left leg weakness TIA (transient ischemic attack) Syphilis Family History Family history: reviewed and not pertinent Social History Social History Household Members: Spouse Housing: Homeless Do you presently have visiting nurse or other home services: No Comment: 5's Patient Tobacco Use Status: Current everyday Tobacco user Tobacco use type: Cigarette Smoked in Last 30 Days: Yes e-Cigarette/Vaping Use: Never Used Patient Interested in Nicotine Replacement: Yes (Gum and Lozenge) Patient Given Instructions on How to Stop Smoking: Yes Date Education Initiated: 05/07/24 Second Hand Smoke Exposure: Yes Use of substances other than those prescribed or required for medical reasons: No Currently Displaying Signs/Symptoms of Drug Intoxication Withdrawal: No Have you been hit, kicked, punched, or otherwise hurt by someone within the past year? If so, by whom?: No Do you feel safe in your current relationship?: Yes Is there a partner from a previous relationship who is making you feel unsafe now?: No Are you made to feel afraid or neglected: No Advance Directives: No Advance Directives Information Provided: Yes Do you have thoughts of harming others: None Do you have a plan to hurt others: No Plan Recently lost weight without trying: Yes How much weight loss: 2-13 pounds Eating poorly because of decreased appetite: No Nutrition screen score: 3 Nutrition Risks: No Nutritional Risk Patient : No service: No Sexual orientation: Straight/Heterosexual Meds Allergies Allergy/AdvReac Type Severity Reaction Status Date / Time fluoxetine [From PROZAC] Allergy Severe ANAPHYLAXIS Unverified 10/25/19 16:31 spinach Allergy Severe THROAT Unverified 10/25/19 16:31 TIGHTNESS fish derived Allergy Intermediate SWELLING/DIFFICULTY Unverified 10/25/19 16:31 BREATHING peach [[place]] Allergy Intermediate SWELLING, Unverified 10/25/19 16:31 DIFFICULTY BREATHING azithromycin [From Zithromax] Allergy Mild FEELS Unverified 10/25/19 16:31 PARALYZED, RASH codeine [Codeine] Allergy Mild SHORTNESS Unverified 10/25/19 16:31 OF BREATH sertraline [From Zoloft] Allergy Mild SWELLING Unverified 10/25/19 16:31 IN THROAT ziprasidone [From Geodon] Allergy Mild HEART Unverified 10/25/19 16:31 FAILURE blueberry [Blueberry] Allergy Unknown RASH Unverified 10/25/19 16:31 broccoli Allergy Unknown RASH Unverified 10/25/19 16:31 cabbage Allergy Unknown RASH Unverified 10/25/19 16:31 citalopram [From CELEXA] Allergy Unknown HEART Unverified 10/25/19 16:31 DAMAGE coconut Allergy Unknown RASH Unverified 10/25/19 16:31 divalproex sodium Allergy Unknown RASH Unverified 10/25/19 16:31 [From DEPAKOTE] garlic Allergy Unknown RASH Unverified 10/25/19 16:31 haloperidol [From HALDOL] Allergy Unknown RASH Unverified 10/25/19 16:31 latex [LATEX] Allergy Unknown SWELLING Unverified 10/25/19 16:31 metronidazole [From FLAGYL] Allergy Unknown SHORTNESS Unverified 10/25/19 16:31 OF BREATH/RASH, blisters,rash onion [Onion] Allergy Unknown RASH Unverified 10/25/19 16:31 orange Allergy Unknown RASH Unverified 10/25/19 16:31 oxycodone [OXYCODONE] Allergy Unknown throat Unverified 10/25/19 16:31 closes procaine [PROCAINE] Allergy Unknown throat Unverified 10/25/19 16:31 closes risperidone [From RISPERDAL] Allergy Unknown SHORTNESS Unverified 10/25/19 16:31 OF BREATH silver Allergy Unknown BLISTERS/RA Unverified 10/25/19 16:31 [From TEGADERM AG MESH] SH strawberry [[place]] Allergy Unknown RASH Unverified 10/25/19 16:31 tomato [[place]AT[place]] Allergy Unknown RASH Unverified 10/25/19 16:31 venlafaxine [From EFFEXOR] Allergy Unknown HEAVY BODY Unverified 10/25/19 16:31 gluten Allergy Unknown Verified 05/07/24 17:38 nut - unspecified Allergy Unknown Verified 05/07/24 17:38 doxycycline [DOXYCYCLINE] AdvReac Unknown DIARRHEA Unverified 10/25/19 16:31 From Novocain Allergy Severe DIFFICULTY Uncoded 10/25/19 16:31 BREATHING From Percocet Allergy Severe THROAT Uncoded 10/25/19 16:31 TIGHTNESS, DIFFICULTY BREATH Active Medications: Current Medications Acetaminophen (Acetaminophen 325 Mg Tablet) 650 mg PO Q6H PRN PRN Reason: Headache/Pain, Scale 1-10 Last Admin: 05/09/24 15:23 Dose: 650 mg Al Hydroxide/Mg Hydroxide (Magnesium Hydrox/Alum Hydrox 30 Ml Oral.Susp) 30 ml PO Q6H PRN PRN Reason: Heartburn/Nausea Albuterol Sulfate (Albuterol Sulfate 90 Mcg 8 Gm Inhaler) 2 puff INHALE Q4H PRN PRN Reason: shortness of breath Amitriptyline HCl (Amitriptyline Hcl 10 Mg Tablet) 10 mg PO BEDTIME [facility] Last Admin: 05/09/24 20:09 Dose: 10 mg Aspirin (Aspirin Enteric Coated 81 Mg Tablet.Dr) 162 mg PO DAILY [facility] Last Admin: 05/09/24 08:44 Dose: 162 mg Atorvastatin Calcium (Atorvastatin Calcium 40 Mg Tablet) 40 mg PO BEDTIME [facility] Last Admin: 05/09/24 20:08 Dose: 40 mg Cephalexin HCl (Cephalexin 500 Mg Capsule) 500 mg PO QID [facility] Stop: 05/17/24 20:59 Last Admin: 05/09/24 20:09 Dose: 500 mg Cyanocobalamin (Cyanocobalamin (Vitamin B-12) 1,000 Mcg Tablet) 1,000 mcg PO DAILY [facility] Last Admin: 05/09/24 08:45 Dose: 1,000 mcg Cyclobenzaprine HCl (Cyclobenzaprine Hcl 10 Mg Tablet) 10 mg PO TID [facility] Last Admin: 05/09/24 20:10 Dose: 10 mg Docusate Sodium (Docusate Sodium 100 Mg Capsule) 100 mg PO BID [facility] Last Admin: 05/09/24 20:22 Dose: Not Given Fluticasone Propionate (Fluticasone Propionate Nasal 16 Gm [place]) 1 spray NOSTRIL-B BID [facility] Last Admin: 05/09/24 20:08 Dose: 1 spray Hydroxyzine HCl (Hydroxyzine Hcl 25 Mg Tablet) 25 mg PO Q6H PRN PRN Reason: mild anxiety Levetiracetam (Levetiracetam 500 Mg Tablet) 500 mg PO BID [facility] Last Admin: 05/09/24 20:09 Dose: 500 mg Lidocaine (Lidocaine 4 % Patch Adh..Patch) 1 patch TRANSDERMA DAILY [facility]; Protocol Last Admin: 05/09/24 10:40 Dose: 1 patch Lurasidone HCl (Lurasidone Hcl 80 Mg Tablet) 80 mg PO DAILY@0800 [facility] Magnesium Hydroxide (Milk Of Magnesia 30 Ml Oral.Susp) 30 ml PO DAILY PRN PRN Reason: Constipation Midodrine (Midodrine Hcl 10 Mg Tablet) 10 mg PO TID [facility] Last Admin: 05/09/24 20:09 Dose: 10 mg Nicotine (Nicotine 14 Mg Patch.Td24) 14 mg TRANSDERMA DAILY PRN PRN Reason: smoking cessation Nicotine Polacrilex (Nicotine Polacrilex 2 Mg Gum) 4 mg BUCCAL Q1H PRN PRN Reason: Nicotine Cravings Last Admin: 05/09/24 19:02 Dose: 4 mg Olanzapine (Olanzapine 10 Mg Tablet) 10 mg PO BEDTIME [facility] Last Admin: 05/09/24 20:09 Dose: 10 mg Olanzapine (Olanzapine 2.5 Mg Tablet) 2.5 mg PO BID@0800,1400 [facility] Last Admin: 05/09/24 14:12 Dose: 2.5 mg Omeprazole (Omeprazole 20 Mg Capsule.Dr) 20 mg PO BID@0630,1630 [facility] Last Admin: 05/09/24 16:16 Dose: 20 mg Simethicone (Simethicone 80 Mg Tab.Chew) 80 mg PO QIDWMHS PRN PRN Reason: flatulance Last Admin: 05/09/24 19:00 Dose: 80 mg Sucralfate (Sucralfate 1 Gm Tablet) 1 gm PO QIDACHS [facility] Last Admin: 05/09/24 20:09 Dose: 1 gm Tiotropium [place] (Tiotropium [place] 2.5 Mcg 1 Puff/2.5 Mcg Mist.Inhal) 2 puff INHALE RDAILY [facility] Last Admin: 05/09/24 08:49 Dose: 2 puff Topiramate (Topiramate 100 Mg Tablet) 100 mg PO TID [facility] Last Admin: 05/09/24 20:09 Dose: 100 mg Trazodone HCl (Trazodone Hcl 50 Mg Tablet) 50 mg PO BEDTIME MRX1 PRN PRN Reason: Insomnia Last Admin: 05/07/24 20:55 Dose: 50 mg Trazodone HCl (Trazodone Hcl 50 Mg Tablet) 50 mg PO BEDTIME [facility] Last Admin: 05/09/24 20:08 Dose: 50 mg Home Medications ?Medication ?Instructions ?Recorded ?Confirmed ?Last Taken ?Type albuterol sulfate 90 mcg/actuation 2 puff inhalation Q4-6H PRN 05/07/24 05/07/24 Unknown History aerosol inhaler shortness of breath amitriptyline 10 mg tablet 10 mg PO BEDTIME 05/07/24 05/07/24 Unknown History atorvastatin 40 mg tablet 40 mg PO BEDTIME 05/07/24 05/07/24 Unknown History cephalexin 500 mg capsule 500 mg PO QID 05/07/24 05/07/24 05/07/24 09:00 History cyanocobalamin (vitamin B-12) 1,000 mcg PO DAILY 05/07/24 05/07/24 Unknown History 1,000 mcg tablet cyclobenzaprine 10 mg tablet 10 mg PO TID 05/07/24 05/07/24 05/07/24 09:00 History docusate sodium 100 mg capsule 100 mg PO BID 05/07/24 05/07/24 05/07/24 09:00 History (Colace) fluticasone propionate 50 1 spray intranasal BID 05/07/24 05/07/24 Unknown History mcg/actuation nasal spray,suspension lactulose 10 gram/15 mL oral PO BID PRN Constipation 05/07/24 Unknown History solution (Enulose) levalbuterol tartrate 45 2 puff inhalation Q6H PRN wheezing 05/07/24 05/07/24 Unknown History mcg/actuation aerosol inhaler (Xopenex HFA) levetiracetam 500 mg tablet 500 mg PO BID 05/07/24 05/07/24 05/07/24 09:00 History lidocaine 4 % topical patch 1 patch topical DAILY 05/07/24 05/07/24 Unknown History (Lidocaine Pain Relief) lurasidone 60 mg tablet 60 mg PO DAILY@0800 05/07/24 05/07/24 05/07/24 09:00 History midodrine 10 mg tablet 10 mg PO TID 05/07/24 05/07/24 Unknown History nicotine (polacrilex) 4 mg gum 4 mg PO Q1-2H PRN Nicotine Cravings 05/07/24 05/07/24 Unknown History olanzapine 10 mg tablet 10 mg PO BEDTIME 05/07/24 05/07/24 Unknown History olanzapine 2.5 mg tablet 2.5 mg PO BID@0800,1400 05/07/24 05/07/24 05/07/24 09:00 History omeprazole 20 mg capsule,delayed 20 mg PO BID 05/07/24 05/07/24 05/07/24 09:00 History release sucralfate 1 gram tablet 1 g PO QIDACHS 05/07/24 05/07/24 05/07/24 09:00 History topiramate 100 mg tablet 100 mg PO TID 05/07/24 05/07/24 Unknown History umeclidinium 62.5 mcg/actuation 1 inh inhalation DAILY 05/07/24 05/07/24 Unknown History blister powder for inhalation (Incruse Ellipta) Physical Exam 2 Vital Signs: Vital Signs: Last Vital Signs Temp 97.8 F 05/09/24 19:35 Pulse 97 05/09/24 19:35 Resp 16 05/09/24 19:35 BP 103/62 05/09/24 19:35 Pulse Ox 97 05/09/24 19:35 O2 Del Method Room Air 05/09/24 19:35 BMI result Body Mass Index 27.8 Const: General: cooperative HEENT: Head: Yes normal to inspection Face and sinus: Yes normal facial exam Mouth: Normal oral and palatal mucosa present Teeth and gingiva: d entition normal Eyes: General: appearance normal, both eyes and all related structures P upils: Equal, round and reactive pupils present Resp: Effort & Inspection: normal respiratory effort Cardio: Rate: regular rate Rhythm: regular rhythm GI: Palpation (GI): Soft to palpation and nontender : General: Yes no CVA tenderness Back/Spine/Pelvis: Back: no CVA tenderness Skin: General skin exam: no rashes or lesions noted Neuro: General: moves all extremities Cranial nerves: Yes Equal, round and reactive pupils present Extrem: General: Yes normal to inspection Psych: Appearance: grossly normal Results Labs 05/07/24 18:28 Assessment and Plan (1) Syphilis: Status: Acute Plan Appears no otic or opthalmic problems and not high titer so doubt neurosyphilis. Would treat one dose PCN 2.4MU. Recheck titer in 3 months,sometimes low level dont change. Treat partners if any.
[2024-05-10] MEDS: Sucralfate 1 GM TABLET PO ×4 (06:51→20:27)
[2024-05-10] MEDS: Omeprazole 20 MG CAPSULE.DR PO ×2 (06:51→16:02)
[2024-05-10] MEDS: Nicotine Polacrilex 2 MG GUM 4 MG BUCCAL ×5 (06:52→18:05)
[2024-05-10 07:00] VITALS: BMI 28.0
[2024-05-10 08:00] VITALS: BP 96/63; PULSE 91; RESP 16; TEMP 36.5; O2SAT 100
[2024-05-10] MEDS: Acetaminophen 325 MG TABLET 650 MG PO ×2 (08:52→15:16)
[2024-05-10] MEDS: cephALEXin 500 MG CAPSULE PO ×4 (08:53→20:28)
[2024-05-10] MEDS: OLANZapine 2.5 MG TABLET PO ×2 (08:53→14:07)
[2024-05-10] MEDS: Cyanocobalamin (Vitamin B-12) 1,000 MCG TABLET 1000 MCG PO (08:53)
[2024-05-10] MEDS: Lurasidone HCl 80 MG TABLET PO (08:53)
[2024-05-10] MEDS: Aspirin Enteric Coated 81 MG TABLET.DR 162 MG PO (08:54)
[2024-05-10] MEDS: Midodrine HCl 10 MG TABLET PO ×3 (08:54→20:28)
[2024-05-10] MEDS: Docusate Sodium 100 MG CAPSULE PO (08:54)
[2024-05-10] MEDS: Cyclobenzaprine HCl 10 MG TABLET PO ×3 (08:54→20:28)
[2024-05-10] MEDS: Topiramate 100 MG TABLET PO ×3 (08:54→20:28)
[2024-05-10] MEDS: levETIRAcetam 500 MG TABLET PO ×2 (08:54→20:27)
[2024-05-10] MEDS: Tiotropium Bromide 2.5 mcg 1 PUFF/2.5 MCG MIST.INHAL 2 PUFF INHALE (08:55)
[2024-05-10] MEDS: Fluticasone Propionate Nasal 16 GM SPRAY 1 SPRAY NOSTRIL-B ×2 (08:55→20:27)
[2024-05-10] MEDS: Lidocaine 4 % Patch ADH..PATCH 1 PATCH TRANSDERMA (08:56)
[2024-05-10 14:07] VITALS: BP 93/68
[2024-05-10] MEDS: Simethicone 80 MG TAB.CHEW PO ×2 (15:19→18:05)
--- NOTE | 2024-05-10 15:22 | HO.PSYCHPN ---
Subjective Subjective Date of Service: 05/10/24 Reason For Visit: SI Interim History: feeling well, appears in good spirits. says coming to visit tomorrow. reports she slept well. per staff, fall risk, using CPAP. +groups. +meds. anx 5, denies depression. slept 7 hours. Mental Status Exam Mental Status Exam Narrative: Pt is alert and oriented; behavior is cooperative,and calm; patient is not in distress; dressed in casual attire, uses a walker; mood is much improved and affect congruent, flexible; eye contact appropriate; Speech is nml rate, amount, loudness; no PMA/PMR; thought process is organized and goal directed; Thought content is on Tx; otherwise pertinent to relevant topics and without any delusional content, paranoid ideations or grandiosity; no SI/HI/AVH expressed. Patients insight and judgment impaired Diagnostics Vital Signs (24Hr): Vital Signs - 24 hr 05/09/24 19:35 05/10/24 08:00 05/10/24 14:07 Temperature 97.8 F 97.7 F Pulse Rate 97 91 Respiratory Rate 16 16 Blood Pressure 103/62 96/63 93/68 Pulse Oximetry 97 100 Oxygen Delivery Method Room Air Room Air BMI result Body Mass Index 28.0 Labs 05/07/24 18:28 Labs: Laboratory Results - last 48 hr 05/08/24 16:02 HIV 1&2 Ab/P24 Ag 4thGn Nonreactive Medications Medications Current Medications Acetaminophen (Acetaminophen 325 Mg Tablet) 650 mg PO Q6H PRN PRN Reason: Headache/Pain, Scale 1-10 Last Admin: 05/10/24 15:16 Dose: 650 mg Al Hydroxide/Mg Hydroxide (Magnesium Hydrox/Alum Hydrox 30 Ml Oral.Susp) 30 ml PO Q6H PRN PRN Reason: Heartburn/Nausea Albuterol Sulfate (Albuterol Sulfate 90 Mcg 8 Gm Inhaler) 2 puff INHALE Q4H PRN PRN Reason: shortness of breath Amitriptyline HCl (Amitriptyline Hcl 10 Mg Tablet) 10 mg PO BEDTIME [facility] Last Admin: 05/09/24 20:09 Dose: 10 mg Aspirin (Aspirin Enteric Coated 81 Mg Tablet.) 162 mg PO DAILY [facility] Last Admin: 05/10/24 08:54 Dose: 162 mg Atorvastatin Calcium (Atorvastatin Calcium 40 Mg Tablet) 40 mg PO BEDTIME [facility] Last Admin: 05/09/24 20:08 Dose: 40 mg Cephalexin HCl (Cephalexin 500 Mg Capsule) 500 mg PO QID [facility] Stop: 05/17/24 20:59 Last Admin: 05/10/24 12:22 Dose: 500 mg Cyanocobalamin (Cyanocobalamin (Vitamin B-12) 1,000 Mcg Tablet) 1,000 mcg PO DAILY [facility] Last Admin: 05/10/24 08:53 Dose: 1,000 mcg Cyclobenzaprine HCl (Cyclobenzaprine Hcl 10 Mg Tablet) 10 mg PO TID [facility] Last Admin: 05/10/24 14:08 Dose: 10 mg Docusate Sodium (Docusate Sodium 100 Mg Capsule) 100 mg PO BID [facility] Last Admin: 05/10/24 08:54 Dose: 100 mg Fluticasone Propionate (Fluticasone Propionate Nasal 16 Gm [place]) 1 spray NOSTRIL-B BID [facility] Last Admin: 05/10/24 08:55 Dose: 1 spray Hydroxyzine HCl (Hydroxyzine Hcl 25 Mg Tablet) 25 mg PO Q6H PRN PRN Reason: mild anxiety Levetiracetam (Levetiracetam 500 Mg Tablet) 500 mg PO BID [facility] Last Admin: 05/10/24 08:54 Dose: 500 mg Lidocaine (Lidocaine 4 % Patch Adh..Patch) 1 patch TRANSDERMA DAILY [facility]; Protocol Last Admin: 05/10/24 08:56 Dose: 1 patch Lurasidone HCl (Lurasidone Hcl 80 Mg Tablet) 80 mg PO DAILY@0800 [facility] Last Admin: 05/10/24 08:53 Dose: 80 mg Magnesium Hydroxide (Milk Of Magnesia 30 Ml Oral.Susp) 30 ml PO DAILY PRN PRN Reason: Constipation Midodrine (Midodrine Hcl 10 Mg Tablet) 10 mg PO TID [facility] Last Admin: 05/10/24 14:07 Dose: 10 mg Nicotine (Nicotine 14 Mg Patch.Td24) 14 mg TRANSDERMA DAILY PRN PRN Reason: smoking cessation Nicotine Polacrilex (Nicotine Polacrilex 2 Mg Gum) 4 mg BUCCAL Q1H PRN PRN Reason: Nicotine Cravings Last Admin: 05/10/24 14:08 Dose: 4 mg Olanzapine (Olanzapine 10 Mg Tablet) 10 mg PO BEDTIME [facility] Last Admin: 05/09/24 20:09 Dose: 10 mg Olanzapine (Olanzapine 2.5 Mg Tablet) 2.5 mg PO BID@0800,1400 [facility] Last Admin: 05/10/24 14:07 Dose: 2.5 mg Omeprazole (Omeprazole 20 Mg Capsule.Dr) 20 mg PO BID@0630,1630 [facility] Last Admin: 05/10/24 06:51 Dose: 20 mg Simethicone (Simethicone 80 Mg Tab.Chew) 80 mg PO QIDWMHS PRN PRN Reason: flatulance Last Admin: 05/10/24 15:19 Dose: 80 mg Sucralfate (Sucralfate 1 Gm Tablet) 1 gm PO QIDACHS [facility] Last Admin: 05/10/24 11:01 Dose: 1 gm Tiotropium [place] (Tiotropium [place] 2.5 Mcg 1 Puff/2.5 Mcg Mist.Inhal) 2 puff INHALE RDAILY [facility] Last Admin: 05/10/24 08:55 Dose: 2 puff Topiramate (Topiramate 100 Mg Tablet) 100 mg PO TID [facility] Last Admin: 05/10/24 14:07 Dose: 100 mg Trazodone HCl (Trazodone Hcl 50 Mg Tablet) 50 mg PO BEDTIME MRX1 PRN PRN Reason: Insomnia Last Admin: 05/07/24 20:55 Dose: 50 mg Trazodone HCl (Trazodone Hcl 50 Mg Tablet) 50 mg PO BEDTIME [facility] Last Admin: 05/09/24 20:08 Dose: 50 mg Allergies Allergies Allergy/AdvReac Type Severity Reaction Status Date / Time fluoxetine [From PROZAC] Allergy Severe ANAPHYLAXIS Unverified 10/25/19 16:31 spinach Allergy Severe THROAT Unverified 10/25/19 16:31 TIGHTNESS fish derived Allergy Intermediate SWELLING/DIFFICULTY Unverified 10/25/19 16:31 BREATHING peach [[place]] Allergy Intermediate SWELLING, Unverified 10/25/19 16:31 DIFFICULTY BREATHING azithromycin [From Zithromax] Allergy Mild FEELS Unverified 10/25/19 16:31 PARALYZED, RASH codeine [Codeine] Allergy Mild SHORTNESS Unverified 10/25/19 16:31 OF BREATH sertraline [From Zoloft] Allergy Mild SWELLING Unverified 10/25/19 16:31 IN THROAT ziprasidone [From Geodon] Allergy Mild HEART Unverified 10/25/19 16:31 FAILURE blueberry [Blueberry] Allergy Unknown RASH Unverified 10/25/19 16:31 broccoli Allergy Unknown RASH Unverified 10/25/19 16:31 cabbage Allergy Unknown RASH Unverified 10/25/19 16:31 citalopram [From CELEXA] Allergy Unknown HEART Unverified 10/25/19 16:31 DAMAGE coconut Allergy Unknown RASH Unverified 10/25/19 16:31 divalproex sodium Allergy Unknown RASH Unverified 10/25/19 16:31 [From DEPAKOTE] garlic Allergy Unknown RASH Unverified 10/25/19 16:31 haloperidol [From HALDOL] Allergy Unknown RASH Unverified 10/25/19 16:31 latex [LATEX] Allergy Unknown SWELLING Unverified 10/25/19 16:31 metronidazole [From FLAGYL] Allergy Unknown SHORTNESS Unverified 10/25/19 16:31 OF BREATH/RASH, blisters,rash onion [Onion] Allergy Unknown RASH Unverified 10/25/19 16:31 orange Allergy Unknown RASH Unverified 10/25/19 16:31 oxycodone [OXYCODONE] Allergy Unknown throat Unverified 10/25/19 16:31 closes procaine [PROCAINE] Allergy Unknown throat Unverified 10/25/19 16:31 closes risperidone [From RISPERDAL] Allergy Unknown SHORTNESS Unverified 10/25/19 16:31 OF BREATH silver Allergy Unknown BLISTERS/RA Unverified 10/25/19 16:31 [From TEGADERM AG MESH] SH strawberry [[place]] Allergy Unknown RASH Unverified 10/25/19 16:31 tomato [TOMATO] Allergy Unknown RASH Unverified 10/25/19 16:31 venlafaxine [From EFFEXOR] Allergy Unknown HEAVY BODY Unverified 10/25/19 16:31 gluten Allergy Unknown Verified 05/07/24 17:38 nut - unspecified Allergy Unknown Verified 05/07/24 17:38 doxycycline [DOXYCYCLINE] AdvReac Unknown DIARRHEA Unverified 10/25/19 16:31 From Novocain Allergy Severe DIFFICULTY Uncoded 10/25/19 16:31 BREATHING From Percocet Allergy Severe THROAT Uncoded 10/25/19 16:31 TIGHTNESS, DIFFICULTY BREATH Assessment & Plan Assessment & Plan (1) Syphilis: Status: Acute Code(s): A53.9 - Syphilis, unspecified Assessment and Plan: Appears no otic or opthalmic problems and not high titer so doubt neurosyphilis. Would treat one dose PCN 2.4MU. Recheck titer in 3 months,sometimes low level dont change. Treat partners if any. (2) Cocaine use disorder: Status: Acute Code(s): F14.10 - Cocaine abuse, uncomplicated (3) Homeless: Status: Acute Code(s): Z59.00 - Homelessness unspecified (4) PTSD (post-traumatic stress disorder): Status: Acute Code(s): F43.10 - Post-traumatic stress disorder, unspecified Plan pt is a 39 yo female, with hx bipolar, anxiety/depression, PTSD, nonepileptic seizures,? VS Seizure disorder? (on Keppra), asthma, GERD, migraines, orthostatic hypotension on midodrine, VIKAS on CPAP, hx TIAs with sequela of left lower extremity weakness...who presents for intentional overdose of Ambien in the face of homelessness and depression. Patient was overall doing okay until this past January 2024 when her [id number] . Not only has she been grieving the loss but she and her ended up homeless. Patient became depressed and eventually relapsed on crack cocaine in March. She was psychiatrically admitted for SI to [facility] during which time her Latuda was increased; she was discharged on the . Upon discharge however she returned to the same situation of homelessness and dealing with chronic physical ailments depression quickly returned and with it passive SI. This past week however, in a moment of despair, she became suicidal and impulsively, overdosed on Ambien; she quickly regretted it and called 911 within 20 minutes. Patient said she did not really want to citing her daughter as a protective factor, but just felt overwhelmed and acted out. Patient has been sober since discharge from [facility]. Formulation/clinical reasoning: History of bipolar depression with numerous psychosocial stressors. Patient reports she was doing better at last admission 2 weeks ago when her Latuda was increased however depression resumed when she returned to her current desperate situation. Seems that depression is situational so will not change medications at this time but defer to primary team. Patient says that trazodone is working so will not restart Ambien or melatonin -patient has recorded history of non about seizures however she is also on Keppra so not sure she has a seizure disorder also Plan: CV Q 15 minute checks Continue home medications Latuda recently increased to 60 mg trazodone works (will use instead of Ambien/melatonin) 4/2: increase latuda to 80 mg daily for depression, otherwise continue current mgmt. mood so-so today, up from depressed. 3: affectively appears non-depressed. talking about 's visit tomorrow. no SI expressed. would benefit from brief step-down to respite level of care. continue current mgmt otherwise. Reason for continued inpatient stay Substantial Risk for: harm to self, inability to function and rapid decompensation Time Spent With Patient Time: Total time managing care of this patient today __25__ minutes.
[2024-05-10 20:00] VITALS: BP 88/51; PULSE 84; RESP 14; TEMP 36.8; O2SAT 97
[2024-05-10] MEDS: OLANZapine 10 MG TABLET PO (20:27)
[2024-05-10] MEDS: Amitriptyline HCl 10 MG TABLET PO (20:27)
[2024-05-10] MEDS: Atorvastatin Calcium 40 MG TABLET PO (20:28)
[2024-05-10] MEDS: traZODone HCL 50 MG TABLET PO (20:29)
[2024-05-11] MEDS: Omeprazole 20 MG CAPSULE.DR PO (06:33)
[2024-05-11] MEDS: Sucralfate 1 GM TABLET PO ×2 (06:33→11:01)
[2024-05-11] MEDS: Nicotine Polacrilex 2 MG GUM 4 MG BUCCAL ×4 (06:37→14:09)
[2024-05-11 07:52] VITALS: BP 99/61; PULSE 101; RESP 14; TEMP 36.6; O2SAT 99
[2024-05-11] MEDS: Cyanocobalamin (Vitamin B-12) 1,000 MCG TABLET 1000 MCG PO (08:42)
[2024-05-11] MEDS: Tiotropium Bromide 2.5 mcg 1 PUFF/2.5 MCG MIST.INHAL 2 PUFF INHALE (08:42)
[2024-05-11] MEDS: Fluticasone Propionate Nasal 16 GM SPRAY 1 SPRAY NOSTRIL-B (08:42)
[2024-05-11] MEDS: Topiramate 100 MG TABLET PO ×2 (08:42→14:08)
[2024-05-11] MEDS: levETIRAcetam 500 MG TABLET PO (08:42)
[2024-05-11] MEDS: Midodrine HCl 10 MG TABLET PO ×2 (08:42→14:08)
[2024-05-11] MEDS: Aspirin Enteric Coated 81 MG TABLET.DR 162 MG PO (08:43)
[2024-05-11] MEDS: cephALEXin 500 MG CAPSULE PO ×2 (08:43→12:30)
[2024-05-11] MEDS: OLANZapine 2.5 MG TABLET PO ×2 (08:43→13:08)
[2024-05-11] MEDS: Lurasidone HCl 80 MG TABLET PO (08:43)
[2024-05-11] MEDS: Lidocaine 4 % Patch ADH..PATCH 1 PATCH TRANSDERMA (08:44)
[2024-05-11] MEDS: Cyclobenzaprine HCl 10 MG TABLET PO ×2 (08:44→14:08)
[2024-05-11] MEDS: Docusate Sodium 100 MG CAPSULE PO (08:58)
[2024-05-11] MEDS: Acetaminophen 325 MG TABLET 650 MG PO (08:59)
--- NOTE | 2024-05-11 12:12 | P.DS_ITS ---
DS: Providers Provider Date of Service: 05/11/24 Date of admission: 05/07/24 16:59 Date of discharge: 05/11/24 Primary care physician: Mary Jane Hernandez MD Consults: 05/07/24 17:44 Consult to Hospitalist Routine Comment: Consulting Provider: [facility] Hospitalists Reason For Exam: medical H&P 05/07/24 20:06 Consult to Wound Care Routine Reason for consultation: abscess perineal Has provider been notified: Yes 05/08/24 15:25 Consult to Neurology Routine Consulting Provider: [facility] Reason for consultation: CN III- palsies, recent +syphilis [facility], recent TIAs 05/08/24 15:36 Consult to Infectious Diseases Routine Consulting Provider: [facility] Reason for consultation: syphilis DS: Diagnosis Discharge Diagnosis (1) Syphilis: Status: Acute (2) Cocaine use disorder: Status: Acute (3) Homeless: Status: Acute (4) PTSD (post-traumatic stress disorder): Status: Acute DS: Medications Discharge Medications Home Medications: Home Medications ?Medication ?Instructions ?Recorded ?Confirmed albuterol sulfate 90 mcg/actuation 2 puff inhalation Q4-6H PRN 05/07/24 05/07/24 aerosol inhaler shortness of breath atorvastatin 40 mg tablet 40 mg PO BEDTIME 05/07/24 05/07/24 cyanocobalamin (vitamin B-12) 1,000 mcg PO DAILY 05/07/24 05/07/24 1,000 mcg tablet cyclobenzaprine 10 mg tablet 10 mg PO TID 05/07/24 05/07/24 docusate sodium 100 mg capsule 100 mg PO BID 05/07/24 05/07/24 (Colace) fluticasone propionate 50 1 spray intranasal BID 05/07/24 05/07/24 mcg/actuation nasal spray,suspension lactulose 10 gram/15 mL oral PO BID PRN Constipation 05/07/24 solution (Enulose) levalbuterol tartrate 45 2 puff inhalation Q6H PRN wheezing 05/07/24 05/07/24 mcg/actuation aerosol inhaler (Xopenex HFA) levetiracetam 500 mg tablet 500 mg PO BID 05/07/24 05/07/24 lidocaine 4 % topical patch 1 patch topical DAILY 05/07/24 05/07/24 (Lidocaine Pain Relief) midodrine 10 mg tablet 10 mg PO TID 05/07/24 05/07/24 nicotine (polacrilex) 4 mg gum 4 mg PO Q1-2H PRN Nicotine Cravings 05/07/24 05/07/24 olanzapine 10 mg tablet 10 mg PO BEDTIME 05/07/24 05/07/24 olanzapine 2.5 mg tablet 2.5 mg PO BID@0800,1400 05/07/24 05/07/24 omeprazole 20 mg capsule,delayed 20 mg PO BID 05/07/24 05/07/24 release sucralfate 1 gram tablet 1 g PO QIDACHS 05/07/24 05/07/24 topiramate 100 mg tablet 100 mg PO TID 05/07/24 05/07/24 umeclidinium 62.5 mcg/actuation 1 inh inhalation DAILY 05/07/24 05/07/24 blister powder for inhalation (Incruse Ellipta) Previous Rx's ?Medication ?Instructions ?Recorded amitriptyline 10 mg tablet 10 mg PO BEDTIME 30 days #30 tabs 05/11/24 aspirin 81 mg tablet,delayed 162 mg (2 x 81 mg) PO DAILY 30 05/11/24 release days #60 tabs cephalexin 500 mg capsule 500 mg PO QID 5 days #20 caps 05/11/24 lurasidone 80 mg tablet (Latuda) 80 mg PO DAILY 30 days #30 tabs 05/11/24 trazodone 50 mg tablet 50 mg PO BEDTIME 30 days #30 tabs 05/11/24 Mental Status Exam Mental Status Exam Narrative: Pt is alert and oriented; behavior is cooperative,and calm; patient is not in distress; dressed in casual attire, uses a walker; mood is good and affect congruent, flexible; eye contact appropriate; Speech is nml rate, amount, loudness; no PMA/PMR; thought process is organized and goal directed; Thought content is on Tx; otherwise pertinent to relevant topics and without any delusional content, paranoid ideations or grandiosity; no SI/HI/AVH. Patients insight and judgment impaired Data Data Completed and Pending Completed studies during hospitalization [Text1]: 05/07/24 05/08/24 05/08/24 18:28 07:48 16:02 Sodium 141 Potassium 4.1 Chloride 112 H Carbon Dioxide 21 L Anion Gap 12 BUN 13 Creatinine 0.81 Estim Creat Clear Calc 80.7 Estimated GFR > 60 Random Glucose 93 Estimat Average Glucose 97 Hemoglobin A1c % 5.0 Calcium 9.5 Total Bilirubin 0.3 AST 20 ALT 24 Alkaline Phosphatase 73 Total Protein 7.5 Albumin 4.4 Triglycerides 238 H Cholesterol 145 LDL Cholesterol, Calc 57 HDL Cholesterol 41 Vitamin B12 390 TSH 2.85 HIV 1&2 Ab/P24 Ag 4thGn Nonreactive DS: Summary Hospital Course Hospital Course: per 05/08 admission note: HPI Subjective Notes: Patel Warning, Conditional Voluntary and 3 Day Narrative: pt is a 39 yo female, with hx bipolar, anxiety/depression, PTSD, nonepileptic seizures,? VS Seizure disorder? (on Keppra),, asthma, GERD, migraines, orthostatic hypotension on midodrine, VIKAS on CPAP, hx TIAs with sequela of left lower extremity weakness...who presents for intentional overdose of Ambien in the face of homelessness and depression. Patient was overall doing okay until this past January 2024 when her [id number] . Not only has she been grie ving the loss but she and her ended up homeless. Patient became depressed and eventually relapsed on crack cocaine in March. She was psychiatrically admitted for SI to [facility] during which time her Latuda was increased; she was discharged on the . Upon discharge however she returned to the same situation of homelessness and dealing with chronic physical ailments depression quickly returned and with it passive SI. This past week however, in a moment of despair, she became suicidal and impulsively, overdosed on Ambien; she quickly regretted it and called 911 within 20 minutes. Patient said she did not really want to citing her daughter as a protective factor, but just felt overwhelmed and acted out. Patient has been sober since discharge from [facility]. Patient seen 13:00 05/08/2024 Past Psychiatric History: Past psychiatric admissions Most recent past admission [facility] April 2024 (next most recent in [facility] October 2023) Medical Evaluation Reviewed: Yes [facility] Medical History (Updated 05/09/24 @ 09:24 by Janak Hinton MD) Cocaine use disorder Homeless PTSD (post-traumatic stress disorder) Bipolar disorder, unspecified Orthostatic hypotension VIKAS on CPAP Psychogenic nonepileptic seizure Asthma GERD (gastroesophageal reflux disease) Migraines Left leg weakness TIA (transient ischemic attack) Syphilis Family History: Deferred Social History: Patient She and her were living with her [id number] until her [id number] this January 2024; they are now homeless 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 taking her to court Substance History: Ongoing crack cocaine use Trauma History: Positive history for trauma Precis: pt is a 39 yo female, with hx bipolar, anxiety/depression, PTSD, nonepileptic seizures,? VS Seizure disorder? (on Keppra), asthma, GERD, migraines, orthostatic hypotension on midodrine, VIKAS on CPAP, hx TIAs with sequela of left lower extremity weakness...who presents for intentional overdose of Ambien in the face of homelessness and depression. Patient was overall doing okay until this past January 2024 when her [id number] . Not only has she been grieving the loss but she and her ended up homeless. Patient became depressed and eventually relapsed on crack cocaine in March. She was psychiatrically admitted for SI to [facility] during which time her Latuda was increased; she was discharged on the . Upon discharge however she returned to the same situation of homelessness and dealing with chronic physical ailments depression quickly returned and with it passive SI. This past week however, in a moment of despair, she became suicidal and impulsively, overdosed on Ambien; she quickly regretted it and called 911 within 20 minutes. Patient said she did not really want to citing her daughter as a protective factor, but just felt overwhelmed and acted out. Patient has been sober since discharge from [facility]. Formulation/clinical reasoning: History of bipolar depression with numerous psychosocial stressors. Patient reports she was doing better at last admission 2 weeks ago when her Latuda was increased however depression resumed when she returned to her current desperate situation. Seems that depression is situational so will not change medications at this time but defer to primary team. Patient says that trazodone is working so will not restart Ambien or melatonin -patient has recorded history of non about seizures however she is also on Keppra so not sure she has a seizure disorder also 05/08: Continue home medications. Latuda recently increased to 60 mg. trazodone works (will use instead of Ambien/melatonin) 05/09: increase latuda to 80 mg daily for depression, otherwise continue current mgmt. mood so-so today, up from depressed. 05/10: affectively appears non-depressed. talking about 's visit tomorrow. no SI expressed. would benefit from brief step-down to respite level of care. continue current mgmt otherwise. 05/11: stable overnight. accepted to respite today. meds reviewed, reconciled, prescribed. discharged as per pt preference. Time Spent with Patient Time attestation: Total time managing care of this patient today _35___ minutes. Discharge Plan Discharge Anticipated Discharge Date/Time: 05/11/24 15:00 Patient Disposition: Xfer Other Discharge Diagnosis: PTSD, Chronic Cocaine Use Disorder VIKAS on CPAP Referrals: Mary Jane Hernandez MD [Primary Care Provider] - 1 Week Discharge Medications: New trazodone 50 mg Tablet 50 mg PO BEDTIME 30 Days Qty: 30 0RF aspirin 81 mg Tablet,Delayed Release (Dr/Ec) 162 mg PO DAILY 30 Days Qty: 60 0RF lurasidone [Latuda] 80 mg Tablet 80 mg PO DAILY 30 Days Qty: 30 0RF Continued cyclobenzaprine 10 mg tablet 10 mg PO TID atorvastatin 40 mg tablet 40 mg PO BEDTIME lidocaine [Lidocaine Pain Relief] 4 % adhesive patch,medicated 1 patch topical DAILY levetiracetam 500 mg tablet 500 mg PO BID sucralfate 1 gram tablet 1 g PO QIDACHS cyanocobalamin (vitamin B-12) 1,000 mcg tablet 1,000 mcg PO DAILY olanzapine 10 mg tablet 10 mg PO BEDTIME olanzapine 2.5 mg tablet 2.5 mg PO BID@0800,1400 nicotine (polacrilex) 4 mg gum 4 mg PO Q1-2H PRN (Reason: Nicotine Cravings) omeprazole 20 mg capsule,delayed release(DR/EC) 20 mg PO BID albuterol sulfate 90 mcg/actuation HFA aerosol inhaler 2 puff inhalation Q4-6H PRN (Reason: shortness of breath) topiramate 100 mg tablet 100 mg PO TID fluticasone propionate 50 mcg/actuation spray,suspension 1 spray intranasal BID midodrine 10 mg tablet 10 mg PO TID lactulose [Enulose] 10 gram/15 mL solution PO BID PRN (Reason: Constipation) levalbuterol tartrate [Xopenex HFA] 45 mcg/actuation HFA aerosol inhaler 2 puff INHALATION Q6H PRN (Reason: wheezing) Incruse Ellipta 62.5 mcg/actuation blister with device 1 inh inhalation DAILY docusate sodium [Colace] 100 mg Capsule 100 mg PO BID amitriptyline 10 mg tablet 10 mg PO BEDTIME 30 Days Qty: 30 0RF cephalexin 500 mg capsule 500 mg PO QID 5 Days Qty: 20 0RF Discontinued lurasidone 60 mg tablet 60 mg PO DAILY@0800 Discharge Orders: Discharge Order (Routine); Ordered 05/11/24 Ordered By: Deo Gamez Diet: Advance to usual diet Activity on Discharge: As tolerated Stand Alone Forms: Patient Portal Discharge page, Community Support Print Language: Prydeinig Care Plan Goals: remain safe and stable in the outpatient treatment setting Health Concerns: none Plan of Treatment: take medications as prescribed, attend appointments as scheduled Assessment: not at imminent risk of harm to self or others Discharge Date/Time: 05/11/24 15:02
[2024-05-11 14:08] VITALS: BP 107/68
== END 2024-05-11 15:02 | disposition other institution (70) | DRG 885 ==
PROVIDERS: Physician Assistant; Social Worker; Admitting Provider Psychiatry & Neurology Psychiatry; PCP Internal Medicine; Visit Provider Psychiatry & Neurology Psychiatry
DX: F31.9 Bipolar disorder, unspecified (principal); Z59.02 Unsheltered homelessness; G47.33 Obstructive sleep apnea (adult) (pediatric); F14.10 Cocaine abuse, uncomplicated; J45.909 Unspecified asthma, uncomplicated; F43.12 Post-traumatic stress disorder, chronic; F44.5 Conversion disorder with seizures or convulsions; I95.1 Orthostatic hypotension; G52.7 Disorders of multiple cranial nerves; F17.210 Nicotine dependence, cigarettes, uncomplicated; L05.91 Pilonidal cyst without abscess; Z71.6 Tobacco abuse counseling; Z86.73 Personal history of transient ischemic attack (TIA), and cerebral infarction without residual deficits; Z79.51 Long term (current) use of inhaled steroids; Z79.82 Long term (current) use of aspirin; Z79.899 Other long term (current) drug therapy
CPT/HCPCS: 36415; 80053; 80061; 82607; 83036; 84443; 87389; J0561

== ENCOUNTER → 2024-05-07 16:59 | Outpatient (BNV) | payer OTHER, SELFPAY | PROVIDERS: Admitting Provider Psychiatry & Neurology Psychiatry; PCP Internal Medicine; Visit Provider Internal Medicine | DX: A53.9 Syphilis, unspecified (principal) | CPT/HCPCS: 99222 ==

== ENCOUNTER → 2024-05-07 16:59 | Outpatient (BNV) | payer OTHER, SELFPAY | PROVIDERS: Admitting Provider Psychiatry & Neurology Psychiatry; PCP Internal Medicine; Visit Provider Psychiatry & Neurology Psychiatry | DX: F14.10 Cocaine abuse, uncomplicated (principal); F43.11 Post-traumatic stress disorder, acute; A53.9 Syphilis, unspecified; Z59.00 Homelessness unspecified | CPT/HCPCS: 90792; 99232; 99239 ==

== ENCOUNTER → 2024-05-07 16:59 | Outpatient (BNV) | payer OTHER, SELFPAY | PROVIDERS: Admitting Provider Psychiatry & Neurology Psychiatry; PCP Internal Medicine; Visit Provider Psychiatry & Neurology Neurology | DX: G52.9 Cranial nerve disorder, unspecified (principal) | CPT/HCPCS: 99222 ==

== ENCOUNTER → 2024-05-07 16:59 | Outpatient (BNV) | payer OTHER, SELFPAY | PROVIDERS: Admitting Provider Psychiatry & Neurology Psychiatry; PCP Internal Medicine; Visit Provider Physician Assistant | DX: A53.9 Syphilis, unspecified (principal); G52.9 Cranial nerve disorder, unspecified; Z00.00 Encounter for general adult medical examination without abnormal findings | CPT/HCPCS: 99223 ==